=== PATIENT | male | born 1960 | race Caucasian/White ===

== ENCOUNTER 2016-07-07 15:35 | Emergency (ER) | payer MEDICAID, OTHER ==
[~2016-07-07] VITALS: Ht 180.3 cm; Wt 88.5 kg
[~2016-07-07 15:35] MED LIST: ALPR2TAB2 PO; CARI350T PO; HYDR-3326 PO
[2016-07-07] MEDS ORDERED: ASPI81TA93 PO (15:44)
[2016-07-07] MEDS ORDERED: TEMA30CA5 PO (15:44)
[2016-07-07] MEDS ORDERED: DEXAMETHASONE 0.5 MG/5 ML LIQ UDC PO ONE (17:00)
[2016-07-07] MEDS ORDERED: GUAIFENESIN/CODEINE 5 ML LIQUID UDC PO ONE (17:00)
[2016-07-07] MEDS ORDERED: ALBUTEROL SULFATE 2.5 MG/ 0.5 ML NEBU NEB ONE (17:00)
--- NOTE | 2016-07-07 17:05 | NUR ---
RT notified for HHN tx.
[2016-07-07] MEDS ORDERED: GUAIFENESIN/CODEINE 5 ML LIQUID UDC ONE (17:12)
[2016-07-07] MEDS ORDERED: DEXAMETHASONE 5 MG/5 ML LIQUID UDC ONE (17:12)
--- NOTE | 2016-07-07 17:30 | NUR ---
Pt on HHN tx, NAD noted.
[2016-07-07] MEDS ORDERED: ALBUTEROL SULFATE 2.5 MG/ 0.5 ML NEBU ONE (17:38)
--- NOTE | 2016-07-07 18:04 | NUR ---
Patient discharged to home in stable conditon. Written and verbal after care instructions given. Patient verbalizes understanding of instructions.
== END 2016-07-07 18:05 | disposition home or self-care (01) ==
LOC: ER 15:41
DX: J40 Bronchitis, not specified as acute or chronic (principal)
CPT/HCPCS: 71010; A4663; J8540

== ENCOUNTER 2016-12-23 13:16 | Emergency (ER) | payer MEDICAID, OTHER ==
[~2016-12-23] VITALS: Ht 180.3 cm; Wt 89.8 kg
[~2016-12-23 13:16] MED LIST changes: -ALPR2TAB2 PO; +ASPI81TA93 PO; -CARI350T PO; -HYDR-3326 PO; +TEMA30CA5 PO
--- NOTE | 2016-12-23 14:45 | NUR ---
Patient discharged to home in stable conditon. Written and verbal after care instructions given. Patient verbalizes understanding of instructions. Stressed follow up or return to ER for worsening s/s.
== END 2016-12-23 14:48 | disposition home or self-care (01) ==
LOC: ER 13:16
DX: M20.012 Mallet finger of left finger(s) (principal); X58.XXXA Exposure to other specified factors, initial encounter; Y93.89 Activity, other specified; Y92.9 Unspecified place or not applicable; Y99.9 Unspecified external cause status
CPT/HCPCS: 29130; 73140; 99284; A4663

== ENCOUNTER 2020-11-26 01:45 | Inpatient (IN) | payer MEDICAID, OTHER ==
[~2020-11-26] VITALS: Ht 180.3 cm; Wt 70.3 kg
--- NOTE | 2020-11-26 02:29 | NUR ---
Patient arrived at the ER with c/o fatigue, dizziness, generalized body ache with poor appetite that started 4 days ago.
--- NOTE | 2020-11-26 02:33 | NUR ---
Dr. Conteh at bedside for MSE.
[2020-11-26 03:08] LABS: HEMATOCRIT 49.4 % (36.7-47.1); MEAN CORPUSCULAR HEMOGLOBIN 33.8 uug (23.8-33.4); MEAN CORPUSCULAR VOLUME 95.8 fL (73.0-96.2); PLATELET COUNT (AUTO) 156 K/uL (152-348)
[2020-11-26 03:10] LABS: CREATININE 1.3 mg/dL (0.6-1.3); POTASSIUM 3.8 mmol/L (3.5-5.1)
[2020-11-26 03:16] LABS: BILIRUBIN,DIRECT 0.2 mg/dL (0.0-0.2); BILIRUBIN,TOTAL 0.5 mg/dL (0.2-1.0); TOTAL PROTEIN, SERUM 7.4 g/dL (6.4-8.2)
[2020-11-26 03:29] LABS: *BILIRUBIN,URIN 1+ (NEGATIVE); *BLOOD, URINE 2+ (NEGATIVE); *CLARITY,URINE CLEAR (CLEAR); *COLOR,URINE YELLOW (YELLOW); *KETONES,URINE 4+ (NEGATIVE); *UROBILINOGEN,URINE 0.2 E.U./dl (NORMAL); LEUKOCYTE ESTERASE ,URINE NEGATIVE (NEGATIVE); NITRITE, URINE NEGATIVE (NEGATIVE); PH,URINE 5.5 (5.0-8.0); UGLUCOSE TRACE (NEGATIVE)
[2020-11-26 03:48] LABS: RBC,URINE 0-3 /HPF (0-3)
[2020-11-26 03:49] LABS: BACTERIA,URINE NONE SEEN /HPF (NONE SEEN); RED BLOOD CELL CASTS,URINE 20-50 /LPF (NONE SEEN); SQUAMOUS EPITHELIAL CELL,UR FEW /HPF (NONE SEEN); WBC,URINE 0-3 /HPF (0-3)
[2020-11-26] MEDS ORDERED: DEXAMETHASONE SOD PHOSPHATE 4 MG INJ IV ONE (04:15)
[2020-11-26] MEDS ORDERED: [UNRECOGNIZED DRUG - REMARK] (04:29)
[2020-11-26] MEDS ORDERED: IV NS 1000 ML 1,000 ML IV ONE (04:30)
[2020-11-26] MEDS ORDERED: DEXAMETHASONE SOD PHOSPHATE 4 MG INJ ONE (05:21)
[2020-11-26] MEDS ORDERED: acyclovir PO (05:52)
[2020-11-26] MEDS ORDERED: METF-440 PO (05:52)
[2020-11-26] MEDS ORDERED: DARU1TAB PO (05:52)
[2020-11-26] MEDS ORDERED: EMTR1TAB6 PO (05:52)
[2020-11-26] MEDS ORDERED: OMEP20TA5 PO (05:52)
[2020-11-26] MEDS ORDERED: FINA5TAB11 PO (05:52)
[2020-11-26] MEDS ORDERED: EMTR1TAB13 PO (05:52)
[2020-11-26] MEDS ORDERED: tivicay PO (05:55)
--- NOTE | 2020-11-26 06:22 | NUR ---
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
[2020-11-26] MEDS ORDERED: hydrALAZINE HCL 20 MG/1 ML VIAL IV PRN (06:30)
[2020-11-26] MEDS ORDERED: HYDROCODONE/APAP 5-325MG TABLET PO PRN (06:30)
[2020-11-26] MEDS ORDERED: ONDANSETRON 4 MG/2 ML VIAL IV PRN (06:30)
[2020-11-26] MEDS ORDERED: LABETALOL HCL 100 MG/20 ML VIAL IV PRN (06:30)
[2020-11-26 07:12] LABS: FERRITIN 400 ng/mL (26-388); LACTATE DEHYDROGENASE 272 U/L (85-227)
--- NOTE | 2020-11-26 07:45 | NUR ---
Report given to JACINTO Luna via telephone.
--- NOTE | 2020-11-26 08:02 | NUR ---
Pt trans to tele floor, NAD noted.
--- NOTE | 2020-11-26 08:20 | NUR ---
Patient received to care from ER via wheelchair. Pt is A/O x 4. Pt is on O2 3L nasal canula. Pt denies pain or distress. Breathing is non-labored. Pt's own medications were sent to the pharmacy. Pt was placed on monitor tech. Call light within reach.
[2020-11-26] MEDS ORDERED: DARUNAVIR PO SCH (09:00)
[2020-11-26] MEDS ORDERED: EMTRICITABINE PO SCH (09:00)
[2020-11-26] MEDS ORDERED: TENOFOVIR PO SCH (09:00)
[2020-11-26] MEDS ORDERED: Medication Not On Formulary EA (Omeprazole 20 MG) PO SCH (09:00)
[2020-11-26] MEDS ORDERED: COBICISTAT PO SCH (09:00)
[2020-11-26] MEDS ORDERED: Emtricitabine/Tenofov Alafenam (Descovy 200-25 mg Tablet PO SCH (09:00)
[2020-11-26 09:03] VITALS: BP 118/72
[2020-11-26] MEDS: CHOLECALCIFEROL 1,000 UNIT TABLET PO SCH (10:21)
[2020-11-26] MEDS: ZINC SULFATE 220 MG CAPSULE PO SCH ×3 (10:21→17:33)
[2020-11-26] MEDS: FINASTERIDE 5 MG TABLET PO SCH (10:21)
[2020-11-26] MEDS: ASPIRIN 81 MG TAB.CHEW PO SCH ×2 (10:21→17:32)
[2020-11-26] MEDS: ASCORBIC ACID 500 MG TABLET PO SCH ×2 (10:21→20:09)
[2020-11-26] MEDS: ENOXAPARIN SODIUM 40 MG/0.4 ML DISP.SYRIN SQ SCH (10:25)
[2020-11-26 11:56] VITALS: BP 123/75
[2020-11-26] MEDS: FLUTICASONE/VILANTEROL 1 EACH BLST.W.DEV INH SCH (13:31)
[2020-11-26] MEDS: COBICISTAT PO SCH (13:31)
[2020-11-26] MEDS: [UNRECOGNIZED DRUG - OTHER] PO SCH (13:31)
[2020-11-26] MEDS: DARUNAVIR PO SCH (13:31)
[2020-11-26] MEDS: DOLUTEGRAVIR PO SCH (13:31)
[2020-11-26] MEDS: [UNRECOGNIZED DRUG - OTHER] PO SCH (13:31)
[2020-11-26] MEDS: TENOFOVIR ALAFENAMIDE PO SCH (13:32)
[2020-11-26] MEDS: EMTRICITABINE PO SCH (13:32)
[2020-11-26] MEDS: [UNRECOGNIZED DRUG - OTHER] PO SCH (13:32)
[2020-11-26 15:46] VITALS: BP 111/62
[2020-11-26] MEDS: CEFTRIAXONE 1 G in IV DEXTROSE 5% 50 ML IV SCH (15:58)
[2020-11-26] MEDS: AZITHROMYCIN 250 MG TABLET PO SCH (17:33)
[2020-11-26 20:15] VITALS: BP 114/68
[2020-11-26] MEDS ORDERED: TEMAZEPAM PO SCH (21:00)
[2020-11-26] MEDS: TEMAZEPAM 15 MG CAPSULE PO SCH (21:27)
--- NOTE | 2020-11-26 21:54 | NUR ---
Received pt awake on bed, on continuous O2 at 3L via NC, saturating 93-96%. No respiratory distress noted. Pt is A/O x 4, able to make needs known. All due medications given as ordered. Call light placed within reach. Will continue to monitor.
[2020-11-27 00:05] VITALS: BP 116/73
[2020-11-27] MEDS: ALBUTEROL SULFATE 8 GM HFA.AER.AD IH PRN (00:29)
[2020-11-27 04:15] VITALS: BP 122/71
[2020-11-27] MEDS: ACETAMINOPHEN 325 MG TABLET PO PRN ×2 (04:19→13:28)
--- NOTE | 2020-11-27 05:35 | NUR ---
Pt slept intermittently throughout the night, on continuous O2 at 3L via NC, saturating 93%. Ventolin inh PRN given. Pt noted with temp 100.6 at 0410H. Tylenol PRN given at 0419, temp 99.0 rechecked after an hr. Refused cooling measures for now and wants to sleep more. All needs attended. Call light placed within reach. Frequent visual checks done. Will endorse to next shift for continuity of care.
[2020-11-27 05:56] LABS: HEMATOCRIT 49.5 % (36.7-47.1); MEAN CORPUSCULAR HEMOGLOBIN 33.5 uug (23.8-33.4); MEAN CORPUSCULAR VOLUME 95.4 fL (73.0-96.2); PLATELET COUNT (AUTO) 183 K/uL (152-348)
[2020-11-27 06:09] LABS: BILIRUBIN,TOTAL 0.4 mg/dL (0.2-1.0); CREATININE 1.2 mg/dL (0.6-1.3); PHOSPHOROUS 2.7 mg/dL (2.5-4.9); POTASSIUM 3.7 mmol/L (3.5-5.1); TOTAL PROTEIN, SERUM 6.9 g/dL (6.4-8.2)
--- NOTE | 2020-11-27 07:30 | NUR ---
Received pt awake and alert times 4. Patient is on 3L oxygen saturating 93-96%. No sign of respiratory distress noted at this time. Pt is able to make needs known. Pt is in isolation for Covid 19. No elevation in temperature noted at this time. Safety precautions are in place with call light placed within reach. Will continue to monitor.
[2020-11-27] MEDS: ENOXAPARIN SODIUM 40 MG/0.4 ML DISP.SYRIN SQ SCH (08:51)
[2020-11-27] MEDS: FLUTICASONE/VILANTEROL 1 EACH BLST.W.DEV INH SCH (08:58)
[2020-11-27] MEDS: ZINC SULFATE 220 MG CAPSULE PO SCH ×3 (08:58→16:40)
[2020-11-27] MEDS: ASCORBIC ACID 500 MG TABLET PO SCH ×2 (08:58→20:23)
[2020-11-27] MEDS: CHOLECALCIFEROL 1,000 UNIT TABLET PO SCH (08:58)
[2020-11-27] MEDS: ASPIRIN 81 MG TAB.CHEW PO SCH ×2 (08:58→16:40)
[2020-11-27] MEDS: DEXAMETHASONE SOD PHOSPHATE 4 MG INJ IV SCH (08:59)
[2020-11-27] MEDS: PANTOPRAZOLE SODIUM 40 MG TABLET.DR PO SCH (08:59)
[2020-11-27] MEDS: FINASTERIDE 5 MG TABLET PO SCH (08:59)
[2020-11-27 11:52] VITALS: BP 123/70
[2020-11-27] MEDS ORDERED: REMDESIVIR (CHARGED) 200 MG in IV NORMAL SALINE 210 ML IV ONE (13:00)
[2020-11-27] MEDS: [UNRECOGNIZED DRUG - OTHER] PO SCH (13:29)
[2020-11-27] MEDS: [UNRECOGNIZED DRUG - OTHER] PO SCH (13:29)
[2020-11-27] MEDS: EMTRICITABINE PO SCH (13:29)
[2020-11-27] MEDS: [UNRECOGNIZED DRUG - OTHER] PO SCH (13:29)
[2020-11-27] MEDS: DARUNAVIR PO SCH (13:29)
[2020-11-27] MEDS: TENOFOVIR ALAFENAMIDE PO SCH (13:29)
[2020-11-27] MEDS: DOLUTEGRAVIR PO SCH (13:29)
[2020-11-27] MEDS: COBICISTAT PO SCH (13:29)
[2020-11-27] MEDS: AZITHROMYCIN 250 MG TABLET PO SCH (13:39)
[2020-11-27 15:13] VITALS: BP 117/71
[2020-11-27] MEDS: CEFTRIAXONE 1 G in IV DEXTROSE 5% 50 ML IV SCH (16:40)
--- NOTE | 2020-11-27 18:18 | NUR ---
Patient left resting in bed. No sign of distress noted. Gave all medications as ordered. Patient's oxygen increased to 4L because O2 was at 91%. Patient is tolerating well. Safety measures are in place. Will endorse to the oncoming nurse.
--- NOTE | 2020-11-27 18:29 | NUR ---
Patient left resting in bed. No sign of distress noted at this time. Gave all medications as ordered. Patient tolerated Remdizivir infusion well. Safety measures implemented. Will endorse to oncoming nurse.
[2020-11-27] MEDS: TEMAZEPAM 15 MG CAPSULE PO SCH (20:23)
[2020-11-27 20:29] VITALS: BP 138/80
--- NOTE | 2020-11-27 21:25 | NUR ---
Pt resting in bed watching TV. No acute distress noted. Axox4, Denies any pain or discomfort at the moment. No respiratory distress, SOB noted on 4L NC saturating @ 93%. Denies SOB. VSS. On tele NSR. LFA 20g IV intact and flushed. All due medication administered and tolerated well. Needs attended too. Safety and covid precautions maintained. Call light and all personal item within pt reach. Will continue to monitor throughout the night.
[2020-11-28 00:09] VITALS: BP 136/82
[2020-11-28 04:35] VITALS: BP 134/79
[2020-11-28 05:55] LABS: HEMATOCRIT 51.2 % (36.7-47.1); MEAN CORPUSCULAR HEMOGLOBIN 33.5 uug (23.8-33.4); MEAN CORPUSCULAR VOLUME 95.9 fL (73.0-96.2); PLATELET COUNT (AUTO) 202 K/uL (152-348)
[2020-11-28] MEDS: PANTOPRAZOLE SODIUM 40 MG TABLET.DR PO SCH (05:58)
[2020-11-28 06:12] LABS: BILIRUBIN,DIRECT 0.1 mg/dL (0.0-0.2); BILIRUBIN,TOTAL 0.3 mg/dL (0.2-1.0); CREATININE 1.1 mg/dL (0.6-1.3); POTASSIUM 3.9 mmol/L (3.5-5.1); TOTAL PROTEIN, SERUM 6.9 g/dL (6.4-8.2)
--- NOTE | 2020-11-28 07:56 | NUR ---
received in bed awake, alert and oriented x4. on oxygen 4lpm nc spo2 90-91%. no sob noted. stated he gets short of breath when he goes to the bathroom. encouraged to use urinal for now and stated understanding. iv intact and patent. safety measures in place. kept comfortable. call light in reach. will continue to monitor.
[2020-11-28] MEDS: FLUTICASONE/VILANTEROL 1 EACH BLST.W.DEV INH SCH (08:39)
[2020-11-28] MEDS: CHOLECALCIFEROL 1,000 UNIT TABLET PO SCH (08:42)
[2020-11-28] MEDS: ASPIRIN 81 MG TAB.CHEW PO SCH ×2 (08:43→17:11)
[2020-11-28] MEDS: ASCORBIC ACID 500 MG TABLET PO SCH ×2 (08:43→20:11)
[2020-11-28] MEDS: FINASTERIDE 5 MG TABLET PO SCH (08:43)
[2020-11-28] MEDS: ZINC SULFATE 220 MG CAPSULE PO SCH ×3 (08:43→17:11)
[2020-11-28] MEDS: DEXAMETHASONE SOD PHOSPHATE 4 MG INJ IV SCH (08:46)
[2020-11-28] MEDS: ENOXAPARIN SODIUM 40 MG/0.4 ML DISP.SYRIN SQ SCH (08:46)
[2020-11-28 11:20] VITALS: BP 121/69
--- NOTE | 2020-11-28 11:40 | NUR ---
gave update to tadeo graves
[2020-11-28] MEDS: EMTRICITABINE PO SCH (12:03)
[2020-11-28] MEDS: DOLUTEGRAVIR PO SCH (12:03)
[2020-11-28] MEDS: [UNRECOGNIZED DRUG - OTHER] PO SCH (12:03)
[2020-11-28] MEDS: [UNRECOGNIZED DRUG - OTHER] PO SCH (12:03)
[2020-11-28] MEDS: [UNRECOGNIZED DRUG - OTHER] PO SCH (12:03)
[2020-11-28] MEDS: DARUNAVIR PO SCH (12:03)
[2020-11-28] MEDS: COBICISTAT PO SCH (12:03)
[2020-11-28] MEDS: REMDESIVIR (CHARGED) 100 MG in IV NORMAL SALINE 100 ML IV SCH (12:03)
[2020-11-28] MEDS: TENOFOVIR ALAFENAMIDE PO SCH (12:03)
[2020-11-28] MEDS: AZITHROMYCIN 250 MG TABLET PO SCH (12:46)
[2020-11-28] MEDS: CEFTRIAXONE 1 G in IV DEXTROSE 5% 50 ML IV SCH (13:14)
--- NOTE | 2020-11-28 13:27 | NUR ---
first dose of remdesivir given with no adverse/allergic reaction noted. pt in no acute distress.
[2020-11-28 15:23] VITALS: BP 109/67
--- NOTE | 2020-11-28 18:57 | NUR ---
pt alert and oriented x4. no acute distress. remains on 4 lpm nc tolerated spo2 92-93%. needs attended. safety measures in place. call light in reach.
--- NOTE | 2020-11-28 19:00 | NUR ---
sr on tele heart rate 65. endorsed accordingly.
--- NOTE | 2020-11-28 19:00 | NUR ---
RECEIVED PT AWAKE, ALERT AND ORIENTEDX4. PT IN NO ACUTE DISTRESS. IV INTACT. SAFETY AND COMFORT PROVIDED. WILL CONTINUE TO MONITOR.
[2020-11-28 19:38] VITALS: BP 129/65
[2020-11-28] MEDS: TEMAZEPAM 15 MG CAPSULE PO SCH (20:11)
[2020-11-29 00:08] VITALS: BP 133/77
[2020-11-29 05:01] VITALS: BP 136/76
--- NOTE | 2020-11-29 05:52 | NUR ---
PT IN NO ACUTE DISTRESS. PRESCRIBED MEDICATION GIVEN AND PT TOLERATED IT WELL.PT ON 4L NASAL CANNULA. PT ON SINUS RHYTHM. PT IV INTACT.SAFETY AND COMFORT PROVIDED.ALL NEEDS ARE MET. WILL ENDORSE TO INCOMING NURSE FOR CONTINUITY OF CARE.
[2020-11-29] MEDS: PANTOPRAZOLE SODIUM 40 MG TABLET.DR PO SCH (06:11)
[2020-11-29 06:20] LABS: HEMATOCRIT 52.8 % (36.7-47.1); MEAN CORPUSCULAR HEMOGLOBIN 33.3 uug (23.8-33.4); MEAN CORPUSCULAR VOLUME 97.4 fL (73.0-96.2); PLATELET COUNT (AUTO) 218 K/uL (152-348)
[2020-11-29 06:37] LABS: NEUTROPHILS % (MANUAL) 0 % (42-75)
[2020-11-29 06:43] LABS: ALANINE AMINOTRANSFERASE 37 U/L (16-63); ALKALINE PHOSPHATASE 63 U/L (50-136); ASPARTATE AMINOTRANSFERASE 38 U/L (15-37); BILIRUBIN,TOTAL 0.4 mg/dL (0.2-1.0); CARBON DIOXIDE 31 mmol/L (21-32); CHLORIDE 101 mmol/L (98-107); CREATININE 1.3 mg/dL (0.6-1.3); GLUCOSE 282 mg/dL (74-106); MAGNESIUM 2.3 mg/dL (1.8-2.4); PHOSPHOROUS 3.7 mg/dL (2.5-4.9); POTASSIUM 4.5 mmol/L (3.5-5.1); TOTAL PROTEIN, SERUM 6.7 g/dL (6.4-8.2); UREA NITROGEN, BLOOD 25 mg/dL (7-18)
[2020-11-29 07:07] LABS: BILIRUBIN,DIRECT < 0.1 mg/dL (0.0-0.2)
[2020-11-29] MEDS: ENOXAPARIN SODIUM 40 MG/0.4 ML DISP.SYRIN SQ SCH (08:26)
[2020-11-29] MEDS: ASPIRIN 81 MG TAB.CHEW PO SCH ×2 (08:37→16:23)
[2020-11-29] MEDS: FINASTERIDE 5 MG TABLET PO SCH (08:38)
[2020-11-29] MEDS: ZINC SULFATE 220 MG CAPSULE PO SCH ×3 (08:38→16:23)
[2020-11-29] MEDS: CHOLECALCIFEROL 1,000 UNIT TABLET PO SCH (08:38)
[2020-11-29] MEDS: DEXAMETHASONE SOD PHOSPHATE 4 MG INJ IV SCH (08:38)
[2020-11-29] MEDS: ASCORBIC ACID 500 MG TABLET PO SCH ×2 (08:38→21:07)
[2020-11-29] MEDS: FLUTICASONE/VILANTEROL 1 EACH BLST.W.DEV INH SCH (08:45)
[2020-11-29 12:00] VITALS: BP 136/77
[2020-11-29] MEDS: AZITHROMYCIN 250 MG TABLET PO SCH (12:20)
[2020-11-29] MEDS: COBICISTAT PO SCH (12:21)
[2020-11-29] MEDS: [UNRECOGNIZED DRUG - OTHER] PO SCH (12:21)
[2020-11-29] MEDS: CEFTRIAXONE 1 G in IV DEXTROSE 5% 50 ML IV SCH (12:21)
[2020-11-29] MEDS: EMTRICITABINE PO SCH (12:21)
[2020-11-29] MEDS: TENOFOVIR ALAFENAMIDE PO SCH (12:21)
[2020-11-29] MEDS: DOLUTEGRAVIR PO SCH (12:21)
[2020-11-29] MEDS: DARUNAVIR PO SCH (12:21)
[2020-11-29] MEDS: [UNRECOGNIZED DRUG - OTHER] PO SCH (12:21)
[2020-11-29] MEDS: [UNRECOGNIZED DRUG - OTHER] PO SCH (12:21)
[2020-11-29] MEDS: REMDESIVIR (CHARGED) 100 MG in IV NORMAL SALINE 100 ML IV SCH (12:25)
[2020-11-29 16:00] VITALS: BP 123/65
--- NOTE | 2020-11-29 18:43 | NUR ---
Patient continue oxygen via nasal cannula at 4liters with saturation at 92%. Patient not in distress. Patient continue ATB treatment, tolerated well. no c/o of pain/discomfort noted. will continue monitor
--- NOTE | 2020-11-29 19:00 | NUR ---
PATIENT ALERT ORIENTED, NO SOB NO CHEST PAIN, ON 4LITERS NC FOR SOB, SAT 90 TO 91%, TELE MONITOR SINUS RHYTHM AT THIS TIME, NO COMPLAIN OF PAIN, ON DROPLET PRECAUTIONS, CONT TO MONITOR.
[2020-11-29 20:00] VITALS: BP 141/85
[2020-11-29] MEDS: TEMAZEPAM 15 MG CAPSULE PO SCH (21:07)
[2020-11-30] VITALS: BP 141/88
[2020-11-30 04:00] VITALS: BP 131/77
[2020-11-30] MEDS: ALBUTEROL SULFATE 8 GM HFA.AER.AD IH PRN (04:01)
--- NOTE | 2020-11-30 04:01 | NUR ---
PATIENT SAT 88-90% AT 6LITERS,NO COMPLAIN OF DIFFICULTY OF BREATHING, KEPT HOB ELEVATED INCREASED OXYGEN TO 8LITERS, SAT 90 TO 91%, INSTRUCTED PATIENT TO USE HIS ALBUTEROL PUFF, HE TOOK TWO PUFF, AND INSTRUCTED TO TAKE DEEP BREATHES, RT CAME IN AND CHECK THE PATIENT, RT PUT PATIENT ON OXYGEN MASK AT 8LITERS SAT 90. CONT TO MONITOR.
[2020-11-30] MEDS: PANTOPRAZOLE SODIUM 40 MG TABLET.DR PO SCH (06:05)
[2020-11-30 07:04] LABS: BILIRUBIN,DIRECT 0.1 mg/dL (0.0-0.2); BILIRUBIN,TOTAL 0.3 mg/dL (0.2-1.0); MAGNESIUM 2.4 mg/dL (1.8-2.4); PHOSPHOROUS 3.2 mg/dL (2.5-4.9); POTASSIUM 4.5 mmol/L (3.5-5.1); TOTAL PROTEIN, SERUM 6.7 g/dL (6.4-8.2)
--- NOTE | 2020-11-30 07:04 | NUR ---
PATIENT ALERT ORIENTED, NO SOB NO CHEST PAIN, DENIES PAIN, ON 8L PER MIN OXYGEN SAT 90 TO 91%, CONT TO MONITOR, AFEBRILE.
[2020-11-30 07:10] LABS: HEMATOCRIT 53.2 % (36.7-47.1); MEAN CORPUSCULAR HEMOGLOBIN 32.3 uug (23.8-33.4); MEAN CORPUSCULAR VOLUME 96.1 fL (73.0-96.2); PLATELET COUNT (AUTO) 251 K/uL (152-348)
--- NOTE | 2020-11-30 08:00 | NUR ---
PT had watery BM. PT is in no ac acute distress. Call light is within reach.
[2020-11-30] MEDS: ASPIRIN 81 MG TAB.CHEW PO SCH ×2 (08:43→16:05)
[2020-11-30] MEDS: CHOLECALCIFEROL 1,000 UNIT TABLET PO SCH (08:43)
[2020-11-30] MEDS: ZINC SULFATE 220 MG CAPSULE PO SCH ×3 (08:44→16:05)
[2020-11-30] MEDS: FINASTERIDE 5 MG TABLET PO SCH (08:44)
[2020-11-30] MEDS: ASCORBIC ACID 500 MG TABLET PO SCH ×2 (08:44→20:02)
[2020-11-30] MEDS: DEXAMETHASONE SOD PHOSPHATE 4 MG INJ IV SCH (08:44)
[2020-11-30] MEDS: FLUTICASONE/VILANTEROL 1 EACH BLST.W.DEV INH SCH (08:45)
[2020-11-30] MEDS: ENOXAPARIN SODIUM 40 MG/0.4 ML DISP.SYRIN SQ SCH (08:46)
[2020-11-30 08:48] VITALS: BP 148/85
--- NOTE | 2020-11-30 11:00 | NUR ---
Encouraged pt to use his IS and go on prone position. PT denies any c/o pain.
[2020-11-30 11:18] VITALS: BP 140/83
[2020-11-30] MEDS: REMDESIVIR (CHARGED) 100 MG in IV NORMAL SALINE 100 ML IV SCH (13:04)
[2020-11-30] MEDS: AZITHROMYCIN 250 MG TABLET PO SCH (13:04)
[2020-11-30] MEDS: FAMOTIDINE 20 MG TABLET PO SCH (13:04)
[2020-11-30] MEDS: CEFTRIAXONE 1 G in IV DEXTROSE 5% 50 ML IV SCH (14:44)
[2020-11-30 15:43] VITALS: BP 146/85
[2020-11-30] MEDS: TEMAZEPAM 15 MG CAPSULE PO SCH (20:03)
[2020-11-30 20:21] VITALS: BP 141/92
[2020-12-01 00:07] VITALS: BP 153/88
[2020-12-01 04:05] VITALS: BP 140/84
--- NOTE | 2020-12-01 05:50 | NUR ---
Patient slept well .No acute distress noted. On 8 LPM via simple mask saturating at 93%.Denies pain. Able to use urinal , voided well.BM x1 .Stool collected and sent to lab. Iv on LT FA patent and intact.Compliant with medication. Continue on isolation precaution for covid.Call light with in reach.
[2020-12-01] MEDS: PANTOPRAZOLE SODIUM 40 MG TABLET.DR PO SCH (06:01)
[2020-12-01 06:20] LABS: HEMATOCRIT 55.9 % (36.7-47.1); MEAN CORPUSCULAR HEMOGLOBIN 32.5 uug (23.8-33.4); MEAN CORPUSCULAR VOLUME 95.7 fL (73.0-96.2); PLATELET COUNT (AUTO) 299 K/uL (152-348)
[2020-12-01 06:38] LABS: ALANINE AMINOTRANSFERASE 38 U/L (16-63); ALKALINE PHOSPHATASE 71 U/L (50-136); ASPARTATE AMINOTRANSFERASE 27 U/L (15-37); BILIRUBIN,TOTAL 0.5 mg/dL (0.2-1.0); CARBON DIOXIDE 30 mmol/L (21-32); CHLORIDE 102 mmol/L (98-107); GLUCOSE 272 mg/dL (74-106); MAGNESIUM 2.3 mg/dL (1.8-2.4); POTASSIUM 4.5 mmol/L (3.5-5.1); TOTAL PROTEIN, SERUM 6.6 g/dL (6.4-8.2); UREA NITROGEN, BLOOD 31 mg/dL (7-18)
[2020-12-01 06:49] LABS: BILIRUBIN,DIRECT < 0.1 mg/dL (0.0-0.2)
[2020-12-01] MEDS: ASPIRIN 81 MG TAB.CHEW PO SCH ×2 (09:11→16:41)
[2020-12-01] MEDS: ZINC SULFATE 220 MG CAPSULE PO SCH ×3 (09:11→16:41)
[2020-12-01] MEDS: FAMOTIDINE 20 MG TABLET PO SCH (09:11)
[2020-12-01] MEDS: DEXAMETHASONE SOD PHOSPHATE 4 MG INJ IV SCH (09:12)
[2020-12-01] MEDS: CHOLECALCIFEROL 1,000 UNIT TABLET PO SCH (09:12)
[2020-12-01] MEDS: FINASTERIDE 5 MG TABLET PO SCH (09:12)
[2020-12-01] MEDS: ASCORBIC ACID 500 MG TABLET PO SCH ×2 (09:12→20:39)
[2020-12-01] MEDS: FLUTICASONE/VILANTEROL 1 EACH BLST.W.DEV INH SCH (09:13)
[2020-12-01] MEDS: ENOXAPARIN SODIUM 40 MG/0.4 ML DISP.SYRIN SQ SCH (09:15)
--- NOTE | 2020-12-01 10:20 | NUR ---
Patient noted with decreased O2 sat at 86% on 8LPM via simple mask. Patient remains alert, oriented x 4, denies any pain or discomfort. No complain of SOB. Increased O2 to 10LPM via simple mask but O2 sat still low at 88%. Akhil Ward POLITICAL SCIENTIST is in the unit made him aware and ordered to transition to NRB mask at 15LPM and titrate accordingly. RT made aware.
[2020-12-01 11:54] VITALS: BP 135/83
[2020-12-01] MEDS: IV 1/2NS 1000 ML 1,000 ML IV PRN (12:30)
[2020-12-01] MEDS: REMDESIVIR (CHARGED) 100 MG in IV NORMAL SALINE 100 ML IV SCH (12:34)
[2020-12-01] MEDS: CEFTRIAXONE 1 G in IV DEXTROSE 5% 50 ML IV SCH (14:05)
[2020-12-01 15:42] VITALS: BP 137/86
--- NOTE | 2020-12-01 20:00 | NUR ---
Received patient lying in bed. AAOx4. Denies any pain or SOB. On O2 at 15LPM via non-rebreather mask. HOB elevated. No coughing noted. NSR on tele at 67/min. IV site on left FA intact and patent. COVID isolation observed. Needs assessed and attended to. Safety measure initiated and call black within reached.
[2020-12-01 20:20] VITALS: BP 138/81
[2020-12-01] MEDS: ACETAMINOPHEN 325 MG TABLET PO PRN (20:38)
[2020-12-01] MEDS: TEMAZEPAM 15 MG CAPSULE PO SCH (20:38)
[2020-12-02 00:10] VITALS: BP 146/89
[2020-12-02 04:25] VITALS: BP 132/87
[2020-12-02 05:07] LABS: *BASOS 0 % (Not Estab.); *EOS 0 % (Not Estab.); *HCT 56.9 % (37.5-51.0); *HGB 19.5 g/dL (13.0-17.7); *IMMATURE GRANULOCYTES 0.3 x10E3/uL (0.0-0.1); *IMMATURE GRANULOCYTES 2 % (Not Estab.); *LYMPHOCYTES 8 % (Not Estab.); *LYMPHOCYTES ABSOLUTE 1.2 x10E3/uL (0.7-3.1); *MCH 32.6 pg (26.6-33.0); *MCHC 34.3 g/dL (31.5-35.7); *MCV 95 fL (79-97); *MONOCYTES 7 % (Not Estab.); *NEUTROPHILS 83 % (Not Estab.); *NEUTROPHILS ABSOLUTE 12.5 x10E3/uL (1.4-7.0); *PLT 296 x10E3/uL (150-450); *RBC 5.98 x10E6/uL (4.14-5.80)
[2020-12-02] MEDS: PANTOPRAZOLE SODIUM 40 MG TABLET.DR PO SCH (06:07)
[2020-12-02] MEDS: IV 1/2NS 1000 ML 1,000 ML IV PRN ×2 (06:08→18:06)
[2020-12-02 06:36] LABS: HEMATOCRIT 54.7 % (36.7-47.1); MEAN CORPUSCULAR HEMOGLOBIN 32.8 uug (23.8-33.4); MEAN CORPUSCULAR VOLUME 96.7 fL (73.0-96.2); PLATELET COUNT (AUTO) 313 K/uL (152-348)
--- NOTE | 2020-12-02 06:42 | NUR ---
AAOx4. Denies any pain or SOB. On O2 at 15LPM via non-rebreather mask. O2 sat at 98%. HOB kept elevated. Denies any coughing. NSR on tele at 81/min. IV site on left FA intact and patent. COVID isolation maintained. Needs attended to and met. Safety measure maintained and call black within reached.
[2020-12-02 06:53] LABS: CREATININE 1.1 mg/dL (0.6-1.3); MAGNESIUM 2.5 mg/dL (1.8-2.4); POTASSIUM 4.9 mmol/L (3.5-5.1)
[2020-12-02] MEDS: DEXAMETHASONE SOD PHOSPHATE 4 MG INJ IV SCH (08:32)
[2020-12-02] MEDS: ASCORBIC ACID 500 MG TABLET PO SCH ×2 (08:32→20:27)
[2020-12-02] MEDS: ASPIRIN 81 MG TAB.CHEW PO SCH ×2 (08:33→16:23)
[2020-12-02] MEDS: FAMOTIDINE 20 MG TABLET PO SCH (08:33)
[2020-12-02] MEDS: ZINC SULFATE 220 MG CAPSULE PO SCH ×3 (08:33→16:23)
[2020-12-02] MEDS: FINASTERIDE 5 MG TABLET PO SCH (08:33)
[2020-12-02] MEDS: CHOLECALCIFEROL 1,000 UNIT TABLET PO SCH (08:33)
[2020-12-02] MEDS: ENOXAPARIN SODIUM 40 MG/0.4 ML DISP.SYRIN SQ SCH (08:34)
[2020-12-02] MEDS: FLUTICASONE/VILANTEROL 1 EACH BLST.W.DEV INH SCH (08:35)
[2020-12-02 10:06] LABS: *HELPER T-LYMPH MARKR(CD4)ABSO 416 /uL (359-1519); *HELPER T-LYNPH MARKER CD4)% 34.7 % (30.8-58.5)
[2020-12-02] MEDS ORDERED: TOCILIZUMAB 600 MG in IV NORMAL SALINE 70 ML IV ONE (10:45)
[2020-12-02] MEDS ORDERED: AZITHROMYCIN 250 MG TABLET PO ONE (10:45)
[2020-12-02 11:28] VITALS: BP 133/80
[2020-12-02] MEDS: FLUCONAZOLE 100 MG TABLET PO SCH (11:39)
[2020-12-02] MEDS: CEFTRIAXONE 1 G in IV DEXTROSE 5% 50 ML IV SCH (13:11)
[2020-12-02] MEDS ORDERED: AZITHROMYCIN 250 MG TABLET PO SCH (14:00)
[2020-12-02] MEDS ORDERED: SULFAMETHOXAZOL/TRIMETHOPRI IV 15 ML in IV DEXTROSE 5% 250 ML IV SCH (14:00)
[2020-12-02 15:43] VITALS: BP 124/81
[2020-12-02] MEDS: SULFAMETHOXAZOL/TRIMETHOPRI IV 20 ML in IV DEXTROSE 5% 500 ML IV SCH ×2 (17:59→23:24)
--- NOTE | 2020-12-02 18:33 | NUR ---
Patient resting in bed. AOx4. On 15Lpm O2 via Nonrebreather mask, saturating at 95%. No signs of acute distress. Patient denies pain/ discomfort at this time. NSR on disc sander, rate at 87. IV access patent and intact. Compliant with medications and care. Needs anticipated and met. Call light within reach. Bed alarm on for safety. Will endorse to incoming shift for continuity of care.
[2020-12-02] MEDS: TEMAZEPAM 15 MG CAPSULE PO SCH (20:27)
[2020-12-02 20:30] VITALS: BP 133/85
[2020-12-03 00:15] VITALS: BP 130/81
[2020-12-03 04:35] VITALS: BP 108/55
--- NOTE | 2020-12-03 05:03 | NUR ---
Pt slept throughout the night. Denies pain or SOB and states that he is feeling a lot better. IV site is intact. On 15L NR satting 91-93%. Safety and comfort provided. No other issues or concerns at this time, will endorse to day shift.
[2020-12-03] MEDS: SULFAMETHOXAZOL/TRIMETHOPRI IV 20 ML in IV DEXTROSE 5% 500 ML IV SCH ×4 (05:47→23:35)
[2020-12-03 06:43] LABS: HEMATOCRIT 53.9 % (36.7-47.1); MEAN CORPUSCULAR VOLUME 96.2 fL (73.0-96.2); PLATELET COUNT (AUTO) 319 K/uL (152-348)
[2020-12-03] MEDS: PANTOPRAZOLE SODIUM 40 MG TABLET.DR PO SCH (06:53)
[2020-12-03 06:54] LABS: CREATININE 0.9 mg/dL (0.6-1.3); MAGNESIUM 2.1 mg/dL (1.8-2.4); POTASSIUM 4.2 mmol/L (3.5-5.1)
[2020-12-03 08:30] VITALS: BP 131/75
[2020-12-03] MEDS: ASPIRIN 81 MG TAB.CHEW PO SCH (09:02)
[2020-12-03] MEDS: ZINC SULFATE 220 MG CAPSULE PO SCH ×3 (09:02→16:55)
[2020-12-03] MEDS: FLUCONAZOLE 100 MG TABLET PO SCH (09:02)
[2020-12-03] MEDS: DEXAMETHASONE SOD PHOSPHATE 4 MG INJ IV SCH (09:02)
[2020-12-03] MEDS: FAMOTIDINE 20 MG TABLET PO SCH (09:02)
[2020-12-03] MEDS: ASCORBIC ACID 500 MG TABLET PO SCH ×2 (09:02→20:36)
[2020-12-03] MEDS: ENOXAPARIN SODIUM 40 MG/0.4 ML DISP.SYRIN SQ SCH (09:03)
[2020-12-03] MEDS: FINASTERIDE 5 MG TABLET PO SCH (09:04)
[2020-12-03] MEDS: CHOLECALCIFEROL 1,000 UNIT TABLET PO SCH (09:05)
[2020-12-03] MEDS: FLUTICASONE/VILANTEROL 1 EACH BLST.W.DEV INH SCH (09:06)
[2020-12-03 11:05] VITALS: BP 119/79
[2020-12-03] MEDS ORDERED: DEXTROSE 50% 50 ML DISP.SYRIN IV PRN (11:15)
--- NOTE | 2020-12-03 12:01 | NUR ---
1,250mg of Azithromycin due yesterday 12/02 was given today.
[2020-12-03] MEDS: BLOOD SUGAR DIAGNOSTIC 1 EACH STRIP VI SCH ×3 (12:11→20:55)
[2020-12-03] MEDS: INSULIN REGULAR, HUMAN 300 UNIT/3 ML VIAL SQ PRN ×3 (12:25→20:58)
[2020-12-03] MEDS: CEFTRIAXONE 1 G in IV DEXTROSE 5% 50 ML IV SCH (15:15)
[2020-12-03 15:21] VITALS: BP 103/68
--- NOTE | 2020-12-03 17:13 | NUR ---
Pt's blood sugar is 419. Per Ed WEB DESIGNER DEVELOPER, will give 16 units
[2020-12-03] MEDS ORDERED: INSULIN REGULAR, HUMAN 300 UNIT/3 ML VIAL SQ ONE (17:30)
--- NOTE | 2020-12-03 18:37 | NUR ---
Pt stable throughout the shift. Denies any acute distress. Kept on 15L NRB. Vitals WNL. Improved PO intake. Blood sugar monitored and insulin coverage protocol implemented. Safety and isolation precaution maintained. Will endorse to oncoming nurse.
[2020-12-03 20:12] VITALS: BP 121/70
[2020-12-03] MEDS: TEMAZEPAM 15 MG CAPSULE PO SCH ×2 (20:36→21:36)
[2020-12-04 00:09] VITALS: BP 124/79
--- NOTE | 2020-12-04 00:26 | NUR ---
AAOX4 All needs attended. On 15 L NRB pulse ox 94% Denies any chest pains nor any discomfort. No respiratory distress noted. VSS. On IV Bactrim administered as ordered via left forearm heplock. On telemetry, patient on sinus rhythm. No ectopy noted. Will monitor patient. Needs attended.
[2020-12-04 04:15] VITALS: BP 128/79
[2020-12-04] MEDS: SULFAMETHOXAZOL/TRIMETHOPRI IV 20 ML in IV DEXTROSE 5% 500 ML IV SCH ×3 (05:14→18:01)
[2020-12-04 06:07] LABS: HEMATOCRIT 53.9 % (36.7-47.1); MEAN CORPUSCULAR HEMOGLOBIN 32.7 uug (23.8-33.4); MEAN CORPUSCULAR VOLUME 96.6 fL (73.0-96.2); PLATELET COUNT (AUTO) 348 K/uL (152-348)
[2020-12-04 06:13] LABS: CREATININE 0.9 mg/dL (0.6-1.3); MAGNESIUM 2.2 mg/dL (1.8-2.4); POTASSIUM 4.5 mmol/L (3.5-5.1)
[2020-12-04] MEDS: PANTOPRAZOLE SODIUM 40 MG TABLET.DR PO SCH (06:14)
[2020-12-04] MEDS: BLOOD SUGAR DIAGNOSTIC 1 EACH STRIP VI SCH ×4 (06:56→20:09)
[2020-12-04] MEDS: INSULIN REGULAR, HUMAN 300 UNIT/3 ML VIAL SQ PRN ×3 (07:40→18:05)
[2020-12-04] MEDS: ENOXAPARIN SODIUM 40 MG/0.4 ML DISP.SYRIN SQ SCH (08:01)
[2020-12-04] MEDS: DEXAMETHASONE SOD PHOSPHATE 4 MG INJ IV SCH (08:01)
[2020-12-04] MEDS: FAMOTIDINE 20 MG TABLET PO SCH (08:01)
[2020-12-04] MEDS: ASCORBIC ACID 500 MG TABLET PO SCH ×2 (08:02→20:02)
[2020-12-04] MEDS: FINASTERIDE 5 MG TABLET PO SCH (08:02)
[2020-12-04] MEDS: ZINC SULFATE 220 MG CAPSULE PO SCH ×3 (08:02→17:10)
[2020-12-04] MEDS: FLUCONAZOLE 100 MG TABLET PO SCH (08:02)
[2020-12-04] MEDS: ASPIRIN 81 MG TAB.CHEW PO SCH (08:02)
[2020-12-04] MEDS: FLUTICASONE/VILANTEROL 1 EACH BLST.W.DEV INH SCH (08:03)
[2020-12-04] MEDS: CHOLECALCIFEROL 1,000 UNIT TABLET PO SCH (08:03)
--- NOTE | 2020-12-04 08:30 | NUR ---
RECEIVED PATIENT IN BED AWAKE ALERT AND ORIENTED DUE MEDICATIONS GIVEN INCLUDING INSULIN PER SLIDING SCALE DENIES PAIN OR DISCOMFORTS AT THIS TIME REMAIN ON 15 LITERS OF NON REBREATHER MASK ORDERED WITH SATS AT 94 PERCENT NO SOB AT THIS TIME REMAIN ON RTESPIRATORY ISOLATION AND PRECAUTION CALL LIGHTS AND HIS PERSONAL BELONGINGS ARE WITHIN EASY REACH AT THIS TIME WILL CONTINUE TO OBSERVE.
[2020-12-04 12:00] VITALS: BP 113/73
[2020-12-04] MEDS: CEFTRIAXONE 1 G in IV DEXTROSE 5% 50 ML IV SCH (13:04)
[2020-12-04 16:10] VITALS: BP 116/72
--- NOTE | 2020-12-04 18:00 | NUR ---
RESTING IN BED SITTING AT THE EDGE STATED THAT HE FEELS BETTER SITTING UP WAS ABLE TO GO TO THE [facility] FOR A FEW MINUTED BECAUSE HE REFUSED THE BEDPAN AND BEDSIDE COMMODE BUT WAS BACK INTO BED QUICKLY AND O2 SAT WAS OKAY AT 93-94 PERCENT.TOLERATED IV ANTIBIOTICS ORDERED WITH NO ADVERSE OR ALLERGIC REACTIONS AT THIS TIME.REMAIN ON ISOLATION ORDERED WILL CONTINUE TO OBSERVE.
[2020-12-04] MEDS: TEMAZEPAM 15 MG CAPSULE PO SCH (20:03)
[2020-12-04] MEDS ORDERED: DEXTROSE 50% 50 ML DISP.SYRIN IV PRN (20:30)
[2020-12-04] MEDS ORDERED: INSULIN REGULAR, HUMAN 300 UNIT/3 ML VIAL SQ ONE (20:30)
[2020-12-04 20:51] VITALS: BP 124/69
[2020-12-04] MEDS: INSULIN REGULAR, HUMAN 300 UNITS/3 ML VIAL SQ PRN (20:59)
[2020-12-04] MEDS ORDERED: BLOOD SUGAR DIAGNOSTIC 1 EACH STRIP VI SCH (21:00)
[2020-12-05 00:35] VITALS: BP 116/74
[2020-12-05] MEDS: SULFAMETHOXAZOL/TRIMETHOPRI IV 20 ML in IV DEXTROSE 5% 500 ML IV SCH ×6 (01:23→23:45)
[2020-12-05 04:54] VITALS: BP 121/70
--- NOTE | 2020-12-05 05:20 | NUR ---
Pt slept throughout the night. denies pain or SOB. On 15L/min NC, tolerating well. SOB only on exertion. IV site intact. Safety and comfort provided. No other issues or concerns at this time, will endorse to day shift.
[2020-12-05] MEDS: PANTOPRAZOLE SODIUM 40 MG TABLET.DR PO SCH (06:17)
[2020-12-05 06:24] LABS: HEMATOCRIT 53.4 % (36.7-47.1); MEAN CORPUSCULAR HEMOGLOBIN 32.9 uug (23.8-33.4); MEAN CORPUSCULAR VOLUME 96.1 fL (73.0-96.2); PLATELET COUNT (AUTO) 361 K/uL (152-348)
[2020-12-05 06:46] LABS: POTASSIUM 4.7 mmol/L (3.5-5.1)
--- NOTE | 2020-12-05 06:52 | NUR ---
Attempted to titrate from 15L to 12L NRM but patient was unable to tolerate and desatted to 87%. Placed back on 15L NRM and is satting at 94%.
[2020-12-05] MEDS: BLOOD SUGAR DIAGNOSTIC 1 EACH STRIP VI SCH ×4 (06:56→20:28)
[2020-12-05] MEDS: INSULIN REGULAR, HUMAN 300 UNIT/3 ML VIAL SQ PRN ×3 (07:57→16:24)
[2020-12-05] MEDS: ENOXAPARIN SODIUM 40 MG/0.4 ML DISP.SYRIN SQ SCH (07:59)
[2020-12-05] MEDS: FLUCONAZOLE 100 MG TABLET PO SCH (07:59)
[2020-12-05 08:00] VITALS: BP 121/65
[2020-12-05] MEDS: DEXAMETHASONE SOD PHOSPHATE 4 MG INJ IV SCH (08:00)
[2020-12-05] MEDS: ASPIRIN 81 MG TAB.CHEW PO SCH (08:00)
--- NOTE | 2020-12-05 08:00 | NUR ---
RESTING COMFORTABLY IN BED WITH 15L NRM SATURATING 95-97 %. DENIES CHEST P[AINOR ACUTE SOB. NOTED ON AND OFF MOIST COUGH NO PRODUCTIVE
[2020-12-05] MEDS: ASCORBIC ACID 500 MG TABLET PO SCH ×2 (08:01→20:14)
[2020-12-05] MEDS: FAMOTIDINE 20 MG TABLET PO SCH (08:01)
[2020-12-05] MEDS: ZINC SULFATE 220 MG CAPSULE PO SCH ×3 (08:01→16:39)
[2020-12-05] MEDS: CHOLECALCIFEROL 1,000 UNIT TABLET PO SCH (08:01)
[2020-12-05] MEDS: FINASTERIDE 5 MG TABLET PO SCH (08:01)
[2020-12-05] MEDS: FLUTICASONE/VILANTEROL 1 EACH BLST.W.DEV INH SCH (08:02)
[2020-12-05] MEDS: ACETAMINOPHEN 325 MG TABLET PO PRN (08:02)
--- NOTE | 2020-12-05 09:54 | NUR ---
SEEN BY CUPOLA PATCHER HELPER FOR FOLLOW-UP SEE NOTES
[2020-12-05 11:43] VITALS: BP 118/67
[2020-12-05] MEDS: CEFTRIAXONE 1 G in IV DEXTROSE 5% 50 ML IV SCH (13:01)
[2020-12-05 14:22] LABS: LYMPHOCYTES % (MANUAL) 5 % (20-40); MONOCYTES % (MANUAL) 5 % (2-10); NEUTROPHILS % (MANUAL) 90 % (42-75)
[2020-12-05 15:51] VITALS: BP 120/67
[2020-12-05] MEDS: FUROSEMIDE 20 MG/2 ML VIAL IV SCH (18:57)
--- NOTE | 2020-12-05 19:47 | NUR ---
Recommended ABG to Akhil Ward BENDER MACHINE due to patient satting around 91% on 15L NRM. Ed stated that patient does not need to have ABG at this time unless he is desatting into the 80s at rest and in that case he would then recommend to place patient on high flow NC and then do an ABG. He also informed this nurse that if patient feels short of breath on 15L NRM that he may then choose to transition to high flow. Patient denies having SOB at this time and states that he "feels okay."
[2020-12-05 20:09] VITALS: BP 127/66
[2020-12-05] MEDS: TEMAZEPAM 15 MG CAPSULE PO SCH (20:15)
[2020-12-05] MEDS: INSULIN REGULAR, HUMAN 300 UNITS/3 ML VIAL SQ PRN (20:40)
[2020-12-05] MEDS ORDERED: INSULIN REGULAR, HUMAN 300 UNITS/3 ML VIAL SQ PRN (21:00)
[2020-12-05] MEDS ORDERED: BLOOD SUGAR DIAGNOSTIC 1 EACH STRIP VI SCH (21:00)
--- NOTE | 2020-12-05 23:26 | NUR ---
Patient satting 85% at rest. Placed on high flow 40L/min, 100% fio2. Akhil Ward ADZ WORKER notified. Patient tolerating well satting 95-96%. Will check ABG within an hour.
[2020-12-06 00:03] VITALS: BP 105/65
[2020-12-06 00:52] LABS: ABG BASE EXCESS -2.4 mmol/L; ABG PCO2 29.6 mmHg (35.0-45.0); ABG PH 7.447 (7.350-7.450); ABG PO2 57.7 mmHg (75.0-100.0); ABG SITE RIGHT RADIAL; ABG TOTAL HEMOGLOBIN 18.8 G/dL (13.5-18.0); COHb 0.3 % (0.5-1.5); MetHb 0.4 % (0.0-1.5); O2Hb 90.2 % (94.0-97.0); VENT MODE HIGH FLOW N/C
[2020-12-06 04:09] VITALS: BP 103/61
[2020-12-06 05:23] LABS: ABG BASE EXCESS 2.9 mmol/L; ABG HCO3 25.2 mmol/L; ABG SITE RIGHT RADIAL; ABG TOTAL HEMOGLOBIN 19.8 G/dL (13.5-18.0); COHb 0.3 % (0.5-1.5); MetHb 0.8 % (0.0-1.5); VENT MODE HFNC
--- NOTE | 2020-12-06 05:34 | NUR ---
ABG results at 0030 and 0530 reported to Surekha Blas with no new orders at this time. Pt is satting 96% on 40L HFNC, tolerating well. Patient denies being dizzy, denies SOB or chest pain. IV site is intact. No other issues or concerns at this time, will endorse to day shift.
[2020-12-06 06:26] LABS: HEMATOCRIT 50.7 % (36.7-47.1); MEAN CORPUSCULAR HEMOGLOBIN 32.8 uug (23.8-33.4); MEAN CORPUSCULAR VOLUME 95.4 fL (73.0-96.2); PLATELET COUNT (AUTO) 389 K/uL (152-348)
[2020-12-06] MEDS: ACETAMINOPHEN 325 MG TABLET PO PRN (06:35)
[2020-12-06] MEDS: PANTOPRAZOLE SODIUM 40 MG TABLET.DR PO SCH (06:35)
[2020-12-06] MEDS: SULFAMETHOXAZOL/TRIMETHOPRI IV 20 ML in IV DEXTROSE 5% 500 ML IV SCH ×3 (06:35→17:47)
[2020-12-06 06:37] LABS: CREATININE 1.2 mg/dL (0.6-1.3); POTASSIUM 4.4 mmol/L (3.5-5.1)
[2020-12-06] MEDS: BLOOD SUGAR DIAGNOSTIC 1 EACH STRIP VI SCH ×4 (06:40→21:21)
[2020-12-06] MEDS: FINASTERIDE 5 MG TABLET PO SCH (09:00)
[2020-12-06] MEDS: FLUCONAZOLE 100 MG TABLET PO SCH (09:00)
[2020-12-06] MEDS: CHOLECALCIFEROL 1,000 UNIT TABLET PO SCH (09:00)
[2020-12-06] MEDS: FAMOTIDINE 20 MG TABLET PO SCH (09:00)
[2020-12-06] MEDS: ASPIRIN 81 MG TAB.CHEW PO SCH (09:00)
[2020-12-06] MEDS: ZINC SULFATE 220 MG CAPSULE PO SCH ×3 (09:00→16:47)
--- NOTE | 2020-12-06 09:00 | NUR ---
Received pt from rack cleaner RN. Pt is a/o x 4, sinus rhythm. Pt is on 4L high flow, 100% FiO2. Pt is ambulatory but requested a bedside commode because oxygen tubing makes it difficult for him to ambulate to restroom, pt also uses a urinal at bedside. Pt has accucheck AC HS, is on antibiotics(bactrim, rocephin, and zythromax). Pt is coopertive with care and compliant with tx. will continue to monitor.
[2020-12-06] MEDS: ASCORBIC ACID 500 MG TABLET PO SCH ×2 (09:01→20:59)
[2020-12-06] MEDS: DEXAMETHASONE 4 MG TABLET PO SCH (09:01)
[2020-12-06] MEDS: FUROSEMIDE 20 MG/2 ML VIAL IV SCH (09:02)
[2020-12-06] MEDS: FLUTICASONE/VILANTEROL 1 EACH BLST.W.DEV INH SCH (09:16)
[2020-12-06] MEDS: ENOXAPARIN SODIUM 40 MG/0.4 ML DISP.SYRIN SQ SCH (09:20)
[2020-12-06] MEDS: INSULIN REGULAR, HUMAN 300 UNIT/3 ML VIAL SQ PRN ×3 (09:37→17:09)
--- NOTE | 2020-12-06 11:59 | NUR ---
02 sat 86% in R/A @ rest.
[2020-12-06 12:00] VITALS: BP 114/67
[2020-12-06 16:00] VITALS: BP 151/81
[2020-12-06 16:14] LABS: BAND % (MANUAL) 1 % (0-10); LYMPHOCYTES % (MANUAL) 5 % (20-40); MONOCYTES % (MANUAL) 2 % (2-10); NEUTROPHILS % (MANUAL) 92 % (42-75)
--- NOTE | 2020-12-06 19:00 | NUR ---
PATIENT IN BED ALERT ORIENTED, NO CHEST PAIN, ON 40 LITERS HIGH FLOW, AND 15 LITER NC OXYGEN SAT 95, DENIES OF BEING SHORT OF BREATH, NO COMPLAIN OF PAIN, AFEBRILE CONT TO MONITOR, TELE MONITOR SINUS RHYTHM.
[2020-12-06 20:12] VITALS: BP 127/74
[2020-12-06] MEDS: TEMAZEPAM 15 MG CAPSULE PO SCH (20:59)
[2020-12-06] MEDS: INSULIN REGULAR, HUMAN 300 UNITS/3 ML VIAL SQ PRN (21:27)
--- NOTE | 2020-12-06 21:30 | NUR ---
PATIENT ALERT ORIENTED, NO SOB NO CHEST PAIN, ON 40 LITER HIGH FLOW AT THIS TIME, WITHOUT 15 LITERS NON REBREATHER, SAT 91-92%, PATIENT STATED HIS SAT 92% AT 40 LITERS NO SOB, STATED HE WANTED TO TRY IT, AND WILL PUT THE 15 LITERS NON BREATHER MASK WHEN HE GOES TO SLEEP. CON TO MONITOR.
[2020-12-07] VITALS: BP 131/80
[2020-12-07] MEDS: SULFAMETHOXAZOL/TRIMETHOPRI IV 20 ML in IV DEXTROSE 5% 500 ML IV SCH ×3 (00:13→12:03)
[2020-12-07 04:00] VITALS: BP 126/70
[2020-12-07] MEDS: BLOOD SUGAR DIAGNOSTIC 1 EACH STRIP VI SCH ×4 (05:41→21:25)
--- NOTE | 2020-12-07 05:46 | NUR ---
PATIENT ALERT ORIENTED, NO CHEST PAIN, STILL ON 40 LITER HIGH FLOW, AND 15 LITER NON REBREATHER, SAT 98%, DENIES PAIN AT THIS TIME, REMAINS ON DROPLET PRECAUTION, PATIENT PORTABLE SMALL OXYGEN TANK, AND ELECTRIC O2 MACHINE OUTSIDE PATIENT ROOM, AND TOLD THE PATIENT THAT HIS OXYGEN WAS DELIVERED, AND THEY ARE OUTSIDE HIS ROOM. PATIENT TELE MONITOR SINUS RHYTHM CONT TO MONITOR.
[2020-12-07 06:47] LABS: HEMATOCRIT 49.1 % (36.7-47.1); MEAN CORPUSCULAR VOLUME 95.4 fL (73.0-96.2); PLATELET COUNT (AUTO) 401 K/uL (152-348)
[2020-12-07 07:11] LABS: MAGNESIUM 2.2 mg/dL (1.8-2.4); POTASSIUM 4.6 mmol/L (3.5-5.1)
[2020-12-07] MEDS: ASPIRIN 81 MG TAB.CHEW PO SCH (08:09)
[2020-12-07] MEDS: ASCORBIC ACID 500 MG TABLET PO SCH ×2 (08:09→20:58)
[2020-12-07] MEDS: FAMOTIDINE 20 MG TABLET PO SCH (08:09)
[2020-12-07] MEDS: CHOLECALCIFEROL 1,000 UNIT TABLET PO SCH (08:09)
[2020-12-07] MEDS: ZINC SULFATE 220 MG CAPSULE PO SCH ×3 (08:09→17:10)
[2020-12-07] MEDS: DEXAMETHASONE 4 MG TABLET PO SCH (08:09)
[2020-12-07] MEDS: FLUCONAZOLE 100 MG TABLET PO SCH (08:10)
[2020-12-07] MEDS: FINASTERIDE 5 MG TABLET PO SCH (08:10)
[2020-12-07] MEDS: FUROSEMIDE 20 MG/2 ML VIAL IV SCH (08:10)
[2020-12-07] MEDS: ENOXAPARIN SODIUM 40 MG/0.4 ML DISP.SYRIN SQ SCH (08:12)
[2020-12-07] MEDS: INSULIN REGULAR, HUMAN 300 UNIT/3 ML VIAL SQ PRN ×3 (08:13→17:48)
[2020-12-07] MEDS: FLUTICASONE/VILANTEROL 1 EACH BLST.W.DEV INH SCH (08:14)
[2020-12-07 11:57] VITALS: BP 123/70
[2020-12-07] MEDS ORDERED: TOCILIZUMAB 400 MG in IV NORMAL SALINE 80 ML IV ONE (13:45)
[2020-12-07 16:00] VITALS: BP 141/69
[2020-12-07] MEDS ORDERED: DEXTROSE 50% 50 ML DISP.SYRIN IV PRN (16:45)
--- NOTE | 2020-12-07 19:30 | NUR ---
Received patient lying in bed. AAOx4. In no acute distress. Denies any pain or SOB. On High flow O2 100% at 40L with 15L of O2 via non-rebreather mask. O2 sat at 96% at this time. HOB elevated. NSR on tele at 90/min. IV site on left FA intact and patent. Needs assessed and attended to. COVID precaution observed. Safety measure initiated and call black within reached.
[2020-12-07 20:20] VITALS: BP 113/74
[2020-12-07] MEDS: TEMAZEPAM 15 MG CAPSULE PO SCH (20:58)
[2020-12-07] MEDS: INSULIN REGULAR, HUMAN 300 UNITS/3 ML VIAL SQ PRN (21:26)
[2020-12-08 00:20] VITALS: BP 127/80
[2020-12-08 04:25] VITALS: BP 109/62
[2020-12-08 06:11] LABS: HEMATOCRIT 51.2 % (36.7-47.1); MEAN CORPUSCULAR VOLUME 94.6 fL (73.0-96.2); PLATELET COUNT (AUTO) 432 K/uL (152-348)
--- NOTE | 2020-12-08 06:20 | NUR ---
AAOx4. In no acute distress. No complain of pain or SOB. On High flow O2 100% at 40L with 15L of O2 via non-rebreather mask. O2 sat at 92% at this time. NSR on tele at 80/min. IV site on left FA intact and patent. Needs attended to and met. COVID precaution maintained. Safety measure maintained and call black within reached.
[2020-12-08 06:31] LABS: CREATININE 0.9 mg/dL (0.6-1.3); MAGNESIUM 2.2 mg/dL (1.8-2.4); PHOSPHOROUS 3.9 mg/dL (2.5-4.9); POTASSIUM 4.4 mmol/L (3.5-5.1)
[2020-12-08] MEDS: BLOOD SUGAR DIAGNOSTIC 1 EACH STRIP VI SCH ×4 (06:35→21:05)
--- NOTE | 2020-12-08 08:00 | NUR ---
awake alert and oriented, on high flow 40L and NRB 15L- sat at 94%- on continuous pulse oximetry, still with cough, denies of pain, tele SR 89, breakfast served and wisth good appetite, needs attended, COVID isolatiion observed, safety measures maintained, call light within reach
[2020-12-08] MEDS: INSULIN REGULAR, HUMAN 300 UNIT/3 ML VIAL SQ PRN ×3 (08:21→16:50)
[2020-12-08] MEDS: ENOXAPARIN SODIUM 40 MG/0.4 ML DISP.SYRIN SQ SCH (08:21)
[2020-12-08] MEDS: FUROSEMIDE 20 MG/2 ML VIAL IV SCH (08:23)
[2020-12-08] MEDS: FINASTERIDE 5 MG TABLET PO SCH (08:24)
[2020-12-08] MEDS: ASPIRIN 81 MG TAB.CHEW PO SCH (08:24)
[2020-12-08] MEDS: CHOLECALCIFEROL 1,000 UNIT TABLET PO SCH (08:24)
[2020-12-08] MEDS: ZINC SULFATE 220 MG CAPSULE PO SCH ×3 (08:24→17:03)
[2020-12-08] MEDS: ASCORBIC ACID 500 MG TABLET PO SCH ×2 (08:25→20:39)
[2020-12-08] MEDS: DEXAMETHASONE 4 MG TABLET PO SCH (08:25)
[2020-12-08] MEDS: FAMOTIDINE 20 MG TABLET PO SCH (08:25)
[2020-12-08] MEDS: FLUCONAZOLE 100 MG TABLET PO SCH (08:25)
[2020-12-08] MEDS: FLUTICASONE/VILANTEROL 1 EACH BLST.W.DEV INH SCH (08:26)
--- NOTE | 2020-12-08 11:00 | NUR ---
seen by Dr Xiong- updated - see notes
[2020-12-08 12:00] VITALS: BP 114/74
--- NOTE | 2020-12-08 12:36 | NUR ---
BS 434- covered with 20 units regular insulin sq as per sliding scale- informed Tish De La Torre AIRPORT MAINTENANCE LABORER with order
[2020-12-08 16:00] VITALS: BP 119/72
--- NOTE | 2020-12-08 17:58 | NUR ---
resting, no respiratory distress noted, on 20L high flow and NRB 15L-sat at 94 %, all needs attended and met, very pleasant and cooperative call light within reach.
[2020-12-08 20:20] VITALS: BP 129/58
[2020-12-08] MEDS: TEMAZEPAM 15 MG CAPSULE PO SCH (20:39)
[2020-12-08] MEDS: INSULIN REGULAR, HUMAN 300 UNITS/3 ML VIAL SQ PRN (20:59)
[2020-12-08] MEDS ORDERED: INSULIN GLARGINE,HUM 300 UNITS/3 ML CARTRIDGE SQ SCH (21:00)
--- NOTE | 2020-12-08 22:33 | NUR ---
Received pt on awake on bed, resting, on 20L high flow and NRB 15L - saturating at 95 %. Denies pain and discomfort at this time. All due meds given and tolerated well. BS checked, 370 with sliding scale and routine Lantus given. All needs attended. Call light placed within reach. Will continue to monitor.
[2020-12-09 00:20] VITALS: BP 115/73
[2020-12-09 04:20] VITALS: BP 104/62
[2020-12-09 06:27] LABS: HEMATOCRIT 50.8 % (36.7-47.1); MEAN CORPUSCULAR HEMOGLOBIN 33.2 uug (23.8-33.4); MEAN CORPUSCULAR VOLUME 95.5 fL (73.0-96.2); PLATELET COUNT (AUTO) 388 K/uL (152-348)
[2020-12-09] MEDS: BLOOD SUGAR DIAGNOSTIC 1 EACH STRIP VI SCH ×4 (06:46→21:01)
[2020-12-09 06:56] LABS: CREATININE 0.9 mg/dL (0.6-1.3); MAGNESIUM 2.1 mg/dL (1.8-2.4); PHOSPHOROUS 3.7 mg/dL (2.5-4.9); POTASSIUM 4.4 mmol/L (3.5-5.1)
[2020-12-09] MEDS: CHOLECALCIFEROL 1,000 UNIT TABLET PO SCH (08:21)
[2020-12-09] MEDS: FINASTERIDE 5 MG TABLET PO SCH (08:21)
[2020-12-09] MEDS: ASPIRIN 81 MG TAB.CHEW PO SCH (08:22)
[2020-12-09] MEDS: DEXAMETHASONE 4 MG TABLET PO SCH (08:22)
[2020-12-09] MEDS: FAMOTIDINE 20 MG TABLET PO SCH (08:22)
[2020-12-09] MEDS: ZINC SULFATE 220 MG CAPSULE PO SCH ×3 (08:22→17:08)
[2020-12-09] MEDS: ASCORBIC ACID 500 MG TABLET PO SCH ×2 (08:22→21:17)
[2020-12-09] MEDS: FUROSEMIDE 20 MG/2 ML VIAL IV SCH (08:22)
[2020-12-09] MEDS: FLUCONAZOLE 100 MG TABLET PO SCH (08:22)
[2020-12-09] MEDS: ENOXAPARIN SODIUM 40 MG/0.4 ML DISP.SYRIN SQ SCH (08:23)
[2020-12-09] MEDS: FLUTICASONE/VILANTEROL 1 EACH BLST.W.DEV INH SCH (08:24)
[2020-12-09] MEDS: INSULIN REGULAR, HUMAN 300 UNIT/3 ML VIAL SQ PRN ×3 (08:29→17:11)
[2020-12-09 08:48] VITALS: BP 107/72
[2020-12-09] MEDS ORDERED: TOCILIZUMAB 600 MG in IV NORMAL SALINE 70 ML IV ONE (12:00)
--- NOTE | 2020-12-09 12:04 | NUR ---
Pt's blood sugar is 420. Dr. De La Torre aware. Will proceed with order.
[2020-12-09 14:29] LABS: LYMPHOCYTES % (MANUAL) 6 % (20-40); MONOCYTES % (MANUAL) 7 % (2-10); NEUTROPHILS % (MANUAL) 87 % (42-75)
[2020-12-09 15:40] VITALS: BP 109/66
--- NOTE | 2020-12-09 17:51 | NUR ---
Pt stable throughout the shift. Denies any acute distress or pain at this time. Kept on high flow 40L and NRB 15L, tolerating well. ST 108 on the monitor. Blood sugar monitored closely and sliding scale protocol implemented. Comfort care and needs attended. Isolation precaution maintained. Safety precautions in place. Chart checks done. Will endorse to oncoming nurse
[2020-12-09 20:25] VITALS: BP 122/62
[2020-12-09] MEDS: INSULIN GLARGINE,HUM 300 UNITS/3 ML CARTRIDGE SQ SCH (21:04)
[2020-12-09] MEDS: INSULIN REGULAR, HUMAN 300 UNITS/3 ML VIAL SQ PRN (21:06)
[2020-12-09] MEDS: TEMAZEPAM 15 MG CAPSULE PO SCH (21:17)
[2020-12-10 00:30] VITALS: BP 120/76
[2020-12-10 05:35] VITALS: BP 108/60
[2020-12-10] MEDS: BLOOD SUGAR DIAGNOSTIC 1 EACH STRIP VI SCH ×4 (06:18→21:06)
--- NOTE | 2020-12-10 06:35 | NUR ---
BS trending down from the high 420 mg/dl yesterday. Latest BS 236 m,g/dl. Patient denies ant s/s of hyperglycemia. No complaint presented. Continue on high flow and non re-breathable mask saturating 96-98%. All needs attended and met.
[2020-12-10 07:18] LABS: HEMATOCRIT 50.9 % (36.7-47.1); MEAN CORPUSCULAR HEMOGLOBIN 32.9 uug (23.8-33.4); MEAN CORPUSCULAR VOLUME 97.1 fL (73.0-96.2); PLATELET COUNT (AUTO) 348 K/uL (152-348)
[2020-12-10] MEDS: INSULIN REGULAR, HUMAN 300 UNIT/3 ML VIAL SQ PRN ×3 (07:37→16:18)
[2020-12-10] MEDS: FINASTERIDE 5 MG TABLET PO SCH (08:03)
[2020-12-10] MEDS: ASCORBIC ACID 500 MG TABLET PO SCH ×2 (08:04→20:32)
[2020-12-10] MEDS: CHOLECALCIFEROL 1,000 UNIT TABLET PO SCH (08:04)
[2020-12-10] MEDS: ASPIRIN 81 MG TAB.CHEW PO SCH (08:04)
[2020-12-10] MEDS: DEXAMETHASONE 4 MG TABLET PO SCH (08:04)
[2020-12-10] MEDS: FAMOTIDINE 20 MG TABLET PO SCH (08:04)
[2020-12-10] MEDS: FLUCONAZOLE 100 MG TABLET PO SCH (08:04)
[2020-12-10] MEDS: ENOXAPARIN SODIUM 40 MG/0.4 ML DISP.SYRIN SQ SCH (08:05)
[2020-12-10] MEDS: ZINC SULFATE 220 MG CAPSULE PO SCH ×3 (08:05→16:16)
[2020-12-10] MEDS: INSULIN GLARGINE,HUM 300 UNITS/3 ML CARTRIDGE SQ SCH ×2 (08:06→20:53)
[2020-12-10] MEDS: FUROSEMIDE 20 MG/2 ML VIAL IV SCH (08:12)
[2020-12-10 08:23] LABS: CREATININE 0.8 mg/dL (0.6-1.3); MAGNESIUM 1.8 mg/dL (1.8-2.4); PHOSPHOROUS 2.8 mg/dL (2.5-4.9); POTASSIUM 4.5 mmol/L (3.5-5.1)
[2020-12-10] MEDS: FLUTICASONE/VILANTEROL 1 EACH BLST.W.DEV INH SCH (08:50)
[2020-12-10 12:00] VITALS: BP 112/67
[2020-12-10] MEDS: ACETAMINOPHEN 325 MG TABLET PO PRN (12:05)
[2020-12-10 16:06] VITALS: BP 141/73
--- NOTE | 2020-12-10 19:50 | NUR ---
PATIENT ALERT ORIENTED, NO COMPLAIN OF SOB, NO CHEST PAIN, TELE MONITOR SINUS RHYTHM. NO COMPLAIN OF PAIN, ON 40 LITER HIGH FLOW, AND 15 LITER NASAL CANNULA TOLERATE WELL. SAT 95%, CONT TO MONITOR.
[2020-12-10 20:15] VITALS: BP 145/76
[2020-12-10] MEDS: TEMAZEPAM 15 MG CAPSULE PO SCH (20:32)
[2020-12-10] MEDS: INSULIN REGULAR, HUMAN 300 UNITS/3 ML VIAL SQ PRN (20:54)
[2020-12-11 00:02] VITALS: BP 140/75
[2020-12-11 04:19] VITALS: BP 127/74
--- NOTE | 2020-12-11 04:40 | NUR ---
PATIENT ASLEEP, BUT AROUSABLE, NO COMPLAIN SOB NO CHEST PAIN, TELE MONITOR SINUS RHYTHM, PATIENT HAS EPISODE OF KEEP ASKING FOR FOOD OR SNACK, ENCOURAGE PATIENT TO SLOW DOWN ON FOOD CONSUMPTIONS, AND THE NEED TO CONTROL HIS BLOOD SUGAR. PATIENT ON 40 LITER HIGH FLOW, AND 15 LITER NASAL CANNULA, SAT 93%. NO COMPLAIN OF PAIN, CONT TO MONITOR.
[2020-12-11] MEDS: BLOOD SUGAR DIAGNOSTIC 1 EACH STRIP VI SCH ×4 (06:09→20:45)
[2020-12-11 06:59] LABS: HEMATOCRIT 48.5 % (36.7-47.1); MEAN CORPUSCULAR HEMOGLOBIN 32.7 uug (23.8-33.4); MEAN CORPUSCULAR VOLUME 96.2 fL (73.0-96.2); PLATELET COUNT (AUTO) 326 K/uL (152-348)
[2020-12-11 07:07] LABS: BILIRUBIN,TOTAL 0.6 mg/dL (0.2-1.0); CREATININE 0.7 mg/dL (0.6-1.3); MAGNESIUM 2.1 mg/dL (1.8-2.4); PHOSPHOROUS 3.2 mg/dL (2.5-4.9); POTASSIUM 4.3 mmol/L (3.5-5.1); TOTAL PROTEIN, SERUM 6.1 g/dL (6.4-8.2)
[2020-12-11 07:14] LABS: THYROID STIMULATING HORMONE 1.186 mIU/mL (0.358-3.740)
--- NOTE | 2020-12-11 07:30 | NUR ---
Received patient alert/oriented, uses urinal, denies pain. BS was 192, insulin given per sliding scale. Kept call light within reach. Will continue to monitor. Addendum: 12/11/20 at 1528 by CHERELLE SZYMANSKI RN Patient is on continuous oxygen, double set up, 40L HF and 15L NC. Saturating at 92-95%.
[2020-12-11 08:00] VITALS: BP 120/72
[2020-12-11] MEDS: CHOLECALCIFEROL 1,000 UNIT TABLET PO SCH (08:36)
[2020-12-11] MEDS: ASPIRIN 81 MG TAB.CHEW PO SCH (08:36)
[2020-12-11] MEDS: FLUCONAZOLE 100 MG TABLET PO SCH (08:36)
[2020-12-11] MEDS: FAMOTIDINE 20 MG TABLET PO SCH (08:36)
[2020-12-11] MEDS: FUROSEMIDE 20 MG/2 ML VIAL IV SCH (08:36)
[2020-12-11] MEDS: ASCORBIC ACID 500 MG TABLET PO SCH ×2 (08:36→20:07)
[2020-12-11] MEDS: ZINC SULFATE 220 MG CAPSULE PO SCH ×3 (08:37→16:49)
[2020-12-11] MEDS: FINASTERIDE 5 MG TABLET PO SCH (08:37)
[2020-12-11] MEDS: DEXAMETHASONE 4 MG TABLET PO SCH ×3 (08:37→22:32)
[2020-12-11] MEDS: INSULIN REGULAR, HUMAN 300 UNIT/3 ML VIAL SQ PRN ×3 (08:38→16:52)
[2020-12-11] MEDS: FLUTICASONE/VILANTEROL 1 EACH BLST.W.DEV INH SCH (08:39)
[2020-12-11] MEDS: ENOXAPARIN SODIUM 40 MG/0.4 ML DISP.SYRIN SQ SCH (08:39)
[2020-12-11] MEDS: INSULIN GLARGINE,HUM 300 UNITS/3 ML CARTRIDGE SQ SCH ×2 (08:39→20:53)
--- NOTE | 2020-12-11 11:30 | NUR ---
BS 349, insulin given per sliding scale. Denies discomfort. Will continue to monitor.
[2020-12-11 11:46] VITALS: BP 121/68
[2020-12-11] MEDS: NUTRISOURCE FIBER 4 GM PACKET PO SCH ×2 (12:05→16:49)
[2020-12-11 16:00] VITALS: BP 137/73
--- NOTE | 2020-12-11 18:04 | NUR ---
No distress identified and denies pain during the shift. All needs attended. Due meds given as ordered. Dressing changed to the midline, intact, flushing well, tolerated well. Will endorse to the next shift for continuity of care.
--- NOTE | 2020-12-11 19:30 | NUR ---
RECEIVED PT AWAKE, ALERT AND ORIENTEDX4. PT IN NO ACUTE DISTRESS. IV INTACT. PT ON 40L HIGHFLOW AND 15L NONREBREATHER MASK. PT ON SINUS RHYTHM. SAFETY AND COMFORT PROVIDED. WILL CONTINUE TO MONITOR.
[2020-12-11] MEDS: TEMAZEPAM 15 MG CAPSULE PO SCH (20:06)
[2020-12-11 20:24] VITALS: BP 123/81
[2020-12-11] MEDS: INSULIN REGULAR, HUMAN 300 UNITS/3 ML VIAL SQ PRN (20:48)
--- NOTE | 2020-12-11 21:00 | NUR ---
PT HAS 341 BLOOD SUGAR . ADMINISTERED 8UNIT OF INSULIN. PT IN NO ACUTE DISTRESS. WILL CONTINUE TO MONITOR.
[2020-12-12 00:06] VITALS: BP 133/77
[2020-12-12 04:24] VITALS: BP 131/69
--- NOTE | 2020-12-12 06:02 | NUR ---
PT SLEPT INTERMITTENTLY. PT IN NO ACUTE DISTRESS. PRESCRIBED MEDICATION GIVEN AND PT TOLERATED IT WELL. PT ON SINUS RHYTHM. PT ON HIGH FLOW 40L AND 15L NONREBREATHER MASK. IV INTACT. SAFETY AND COMFORT PROVIDED. ALL NEEDS ARE MET. WILL ENDORSE TO INCOMING NURSE FOR CONTINUITY OF CARE.
[2020-12-12 06:34] LABS: HEMATOCRIT 48.1 % (36.7-47.1); MEAN CORPUSCULAR HEMOGLOBIN 32.1 uug (23.8-33.4); PLATELET COUNT (AUTO) 305 K/uL (152-348)
[2020-12-12] MEDS ORDERED: DEXAMETHASONE 4 MG TABLET ONE (06:48)
[2020-12-12] MEDS: DEXAMETHASONE 4 MG TABLET PO SCH ×3 (06:52→21:13)
[2020-12-12 06:56] LABS: CREATININE 0.7 mg/dL (0.6-1.3); MAGNESIUM 2.2 mg/dL (1.8-2.4); POTASSIUM 4.2 mmol/L (3.5-5.1)
[2020-12-12] MEDS: BLOOD SUGAR DIAGNOSTIC 1 EACH STRIP VI SCH ×4 (07:05→20:26)
[2020-12-12 07:06] LABS: *BASOS 0 % (Not Estab.); *EOS 0 % (Not Estab.); *HCT 48.6 % (37.5-51.0); *IMMATURE GRANULOCYTES 0.4 x10E3/uL (0.0-0.1); *IMMATURE GRANULOCYTES 2 % (Not Estab.); *LYMPHOCYTES 4 % (Not Estab.); *MCH 32.7 pg (26.6-33.0); *MCV 94 fL (79-97); *MONOCYTES 4 % (Not Estab.); *MONOCYTES ABSOLUTE 0.9 x10E3/uL (0.1-0.9); *NEUTROPHILS 90 % (Not Estab.); *NEUTROPHILS ABSOLUTE 20.5 x10E3/uL (1.4-7.0); *PLT 324 x10E3/uL (150-450); *RDW 12.3 % (11.6-15.4); *WBC 22.8 x10E3/uL (3.4-10.8)
--- NOTE | 2020-12-12 07:30 | NUR ---
received in bed awake and responsive. on 15 Lpm nrb and 40 Lpm 100%. no resp distress. spo2 90-91%. denies chest pain/difficulty breathing. sr on telemonitor. pt is comfortable. bed low and locked. side rails up. call light in reach.
[2020-12-12] MEDS: INSULIN REGULAR, HUMAN 300 UNIT/3 ML VIAL SQ PRN ×3 (07:52→16:59)
[2020-12-12] MEDS: ENOXAPARIN SODIUM 40 MG/0.4 ML DISP.SYRIN SQ SCH (08:40)
[2020-12-12] MEDS: FUROSEMIDE 20 MG/2 ML VIAL IV SCH (08:41)
[2020-12-12] MEDS: ASPIRIN 81 MG TAB.CHEW PO SCH (08:42)
[2020-12-12] MEDS: FLUTICASONE/VILANTEROL 1 EACH BLST.W.DEV INH SCH (08:42)
[2020-12-12] MEDS: ZINC SULFATE 220 MG CAPSULE PO SCH ×3 (08:42→17:00)
[2020-12-12] MEDS: NUTRISOURCE FIBER 4 GM PACKET PO SCH ×3 (08:43→17:00)
[2020-12-12] MEDS: ASCORBIC ACID 500 MG TABLET PO SCH ×2 (09:23→20:21)
[2020-12-12] MEDS: CHOLECALCIFEROL 1,000 UNIT TABLET PO SCH (09:24)
[2020-12-12] MEDS: FINASTERIDE 5 MG TABLET PO SCH (09:54)
[2020-12-12] MEDS: FLUCONAZOLE 100 MG TABLET PO SCH (09:55)
[2020-12-12] MEDS: FAMOTIDINE 20 MG TABLET PO SCH (09:55)
[2020-12-12] MEDS: INSULIN GLARGINE,HUM 300 UNITS/3 ML CARTRIDGE SQ SCH ×2 (09:59→20:32)
--- NOTE | 2020-12-12 12:00 | NUR ---
[place] BS 366, insulin administered per sliding scale. Jamie De La Torre ASSISTANT FITNESS MANAGER here and is aware.
[2020-12-12] MEDS ORDERED: diphenhydrAMINE 50 MG/1 ML VIAL IV ONE (12:50)
[2020-12-12] MEDS ORDERED: methylPREDNISolone SOD SUCC 40 MG/ML VIAL IV ONE (12:50)
[2020-12-12] MEDS ORDERED: ACETAMINOPHEN 650 MG/20.3 ML LIQUID UDC NG ONE (12:50)
--- NOTE | 2020-12-12 12:50 | NUR ---
Tylenol 650mg via ng not given. Duplicate order. Tylenol 650mg PO given.
[2020-12-12] MEDS ORDERED: ACETAMINOPHEN 650 MG/20.3 ML LIQUID UDC PO ONE (13:00)
[2020-12-12] MEDS ORDERED: TOCILIZUMAB 600 MG in IV NORMAL SALINE 70 ML IV ONE (13:00)
[2020-12-12 13:16] VITALS: BP 124/77
--- NOTE | 2020-12-12 13:29 | NUR ---
First dose of Actemra given as ordered. VS prior to administration of medication as follows: Bp 124/77, T98.1 hr 95, r 18 spo2 94%. Premedicated prior.
--- NOTE | 2020-12-12 14:30 | NUR ---
Actemra administered as ordered. no s/sx of adverse/allergic reactions noted. denies pain or difficulty breathing. no sob noted. will cont to monitor.
--- NOTE | 2020-12-12 15:35 | NUR ---
called [facility] pharmacy re: hiv medications but no answer. will endorse to f/up tomorrow.
[2020-12-12 15:44] VITALS: BP 137/72
--- NOTE | 2020-12-12 18:51 | NUR ---
alert and oriented x4. no acute distress. on nc 40 Lpm 100% O2 and 15 Lpm nrb mask. spo2 noted at 92% at this time but goes up to 96% max at rest. denies chest pain or sob. pt is comfortable. needs attended. safety measures in place.
--- NOTE | 2020-12-12 19:30 | NUR ---
RECEIVED PT AWAKE, ALERT AND ORIENTEDX4. PT IN NO ACUTE DISTRESS. IV INTACT. PT ON 40L HIGHFLOW AND 15L NONREBREATHER MASK AT 96%. PT ON SINUS RHYTHM. SAFETY AND COMFORT PROVIDED. WILL CONTINUE TO MONITOR.
[2020-12-12] MEDS: TEMAZEPAM 15 MG CAPSULE PO SCH (20:21)
[2020-12-12] MEDS: INSULIN REGULAR, HUMAN 300 UNITS/3 ML VIAL SQ PRN (20:32)
[2020-12-12 20:46] VITALS: BP 143/82
--- NOTE | 2020-12-13 00:36 | NUR ---
BLOOD SUGAR WAS 320 GIVEN 8 UNITS INSULIN BASED ON INSULIN PROTOCOL. PT IN NO ACUTE DISTRESS. WILL CONTINUE TO MONITOR.
[2020-12-13 00:39] VITALS: BP 111/66
[2020-12-13 04:52] VITALS: BP 111/72
--- NOTE | 2020-12-13 06:02 | NUR ---
PT SLEPT INTERMITTENTLY. PT IN NO ACUTE DISTRESS. PT ON HIGH FLOW 40L AND 15L NONREBREATHER MASK. PRESCRIBED MEDICATION GIVEN AND PT TOLERATED IT WELL. PT ON SINUS RHYTHM. SAFETY AND COMFORT PROVIDED. ALL NEEDS ARE MET. WILL ENDORSE TO INCOMING NURSE FOR CONTINUITY OF CARE.
[2020-12-13] MEDS: DEXAMETHASONE 4 MG TABLET PO SCH ×3 (06:05→21:08)
[2020-12-13 06:29] LABS: MEAN CORPUSCULAR HEMOGLOBIN 32.8 uug (23.8-33.4); MEAN CORPUSCULAR VOLUME 96.6 fL (73.0-96.2); PLATELET COUNT (AUTO) 278 K/uL (152-348)
[2020-12-13 06:39] LABS: CREATININE 0.8 mg/dL (0.6-1.3); PHOSPHOROUS 3.1 mg/dL (2.5-4.9); POTASSIUM 4.2 mmol/L (3.5-5.1)
[2020-12-13] MEDS: BLOOD SUGAR DIAGNOSTIC 1 EACH STRIP VI SCH ×4 (07:10→20:24)
[2020-12-13] MEDS: INSULIN REGULAR, HUMAN 300 UNIT/3 ML VIAL SQ PRN ×3 (07:59→17:44)
[2020-12-13] MEDS: FUROSEMIDE 20 MG/2 ML VIAL IV SCH (08:32)
[2020-12-13] MEDS: FAMOTIDINE 20 MG TABLET PO SCH (08:33)
[2020-12-13] MEDS: ZINC SULFATE 220 MG CAPSULE PO SCH ×3 (08:33→17:47)
[2020-12-13] MEDS: CHOLECALCIFEROL 1,000 UNIT TABLET PO SCH (08:33)
[2020-12-13] MEDS: FLUCONAZOLE 100 MG TABLET PO SCH (08:33)
[2020-12-13] MEDS: ASPIRIN 81 MG TAB.CHEW PO SCH (08:33)
[2020-12-13] MEDS: FINASTERIDE 5 MG TABLET PO SCH (08:33)
[2020-12-13] MEDS: ASCORBIC ACID 500 MG TABLET PO SCH ×2 (08:33→20:16)
[2020-12-13] MEDS: INSULIN GLARGINE,HUM 300 UNITS/3 ML CARTRIDGE SQ SCH ×2 (08:39→20:26)
[2020-12-13] MEDS: ENOXAPARIN SODIUM 40 MG/0.4 ML DISP.SYRIN SQ SCH (08:40)
--- NOTE | 2020-12-13 08:48 | NUR ---
DR COOK HERE TO SEE PATIENT WITH NEW ORDERS AND NOTED
--- NOTE | 2020-12-13 09:30 | NUR ---
PATIENT HAS AN EPISODES OF SATS AT 82-83 RT CALLED AND HE WAS ABLE TO ASSIST PATIENT WITH GETTING HIS SATS HIGHER
[2020-12-13] MEDS: FLUTICASONE/VILANTEROL 1 EACH BLST.W.DEV INH SCH (09:35)
[2020-12-13] MEDS: NUTRISOURCE FIBER 4 GM PACKET PO SCH ×3 (09:36→17:47)
[2020-12-13 10:06] LABS: *HELPER T-LYMPH MARKR(CD4)ABSO 423 /uL (359-1519); *HELPER T-LYNPH MARKER CD4)% 42.3 % (30.8-58.5)
[2020-12-13 11:58] VITALS: BP 123/72
--- NOTE | 2020-12-13 13:06 | NUR ---
PATIENT IS RESTING EATING LUNCH BLOOD SUGAR IS 353 INSULIN GIVEN PER COVERAGE NO S/S OF HYPERGLYCEMIC REACTIONS AT THIS TIME.
--- NOTE | 2020-12-13 14:20 | NUR ---
CALLED [facility] SPOKE WITH LUIS TUBE HEATER AND NOTIFIED HER THAT PATIENT HAS RAN OUT OF HIS HIV MEDICATIONS HAS NO ONE AVAILABLE FROM HIS FAMILY OR HOME TO BRING IN MORE SUPPLIES AND AFTER SHE CHECKED STATED THAT THE EARLIEST THEY COULD BRING THE MEDICATION WAS TOMORROW 12/14 OR FRIDAY 12/15.
--- NOTE | 2020-12-13 14:43 | NUR ---
PT RECEIVED ON HFNC 40 LPM, 100% FIO2 AND 15 LPM NRB MASK, DOUBLE SETUP. PT ENCOURAGED TO LAY PRONE OR LAY ON SIDES, PT BECOMES ANXIOUS IN THOSE POSITIONS. PT IS MOST COMFORTABLE SITTING UP. DURING SHIFT, PT HAS HAD EPISODES OF O2 DESATURATION TO THE 70'S WITH EXERTION. PT IS ABLE TO GRADUALLY RECOVER AND SATS BETWEEN 86-90% AT REST. WILL CONTINUE TO MONITOR.
[2020-12-13 16:40] VITALS: BP 134/74
--- NOTE | 2020-12-13 18:00 | NUR ---
RESTING IN BED WITH NO S/S OF HYPERGLYCEMIC REACTIONS AT THIS TIME REMAIN ON COVID ISOLATION AND COMBO O2 WITH HIGH FLOW AND NON REBREATHER MASK WITH NO SHORTNESS OF BREATH AT THIS TIME WILL CONTINUE TO OBSERVE.
--- NOTE | 2020-12-13 19:30 | NUR ---
Received patient lying in bed. AAOx4. In no apparent distress. On 40 high flow O2 at 100% with 15LPM via non-rebreather mask in place. O2 sat at 89%. Denies any SOB at this time. HOB elevated. Midline line on right upper arm intact and patent. Sinus tachy on tele with HR of 105/min. COVID precaution observed. Safety measure initiated and call black within reached.
[2020-12-13 20:00] VITALS: BP 146/79
[2020-12-13] MEDS: TEMAZEPAM 15 MG CAPSULE PO SCH (20:16)
[2020-12-13] MEDS: INSULIN REGULAR, HUMAN 300 UNITS/3 ML VIAL SQ PRN (20:25)
[2020-12-14] VITALS (16 sets, daily range): BP systolic 101–156; BP diastolic 49–90
[2020-12-14 06:01] LABS: HEMATOCRIT 51.7 % (36.7-47.1); MEAN CORPUSCULAR HEMOGLOBIN 32.5 uug (23.8-33.4); MEAN CORPUSCULAR VOLUME 96.5 fL (73.0-96.2); PLATELET COUNT (AUTO) 263 K/uL (152-348)
[2020-12-14] MEDS: DEXAMETHASONE 4 MG TABLET PO SCH (06:10)
[2020-12-14 06:28] LABS: CREATININE 0.8 mg/dL (0.6-1.3); MAGNESIUM 2.2 mg/dL (1.8-2.4); PHOSPHOROUS 3.5 mg/dL (2.5-4.9); POTASSIUM 4.3 mmol/L (3.5-5.1)
[2020-12-14] MEDS: BLOOD SUGAR DIAGNOSTIC 1 EACH STRIP VI SCH ×4 (06:32→20:55)
--- NOTE | 2020-12-14 06:38 | NUR ---
AAOx4. In no apparent distress. On 40 high flow O2 at 100% with 15LPM via non-rebreather mask in place. O2 sat at 89%. Midline line on right upper arm intact and patent. NSR on tele with HR of 88/min. COVID precaution observed. Needs attended to and met. Safety measure maintained and call black within reached.
--- NOTE | 2020-12-14 07:00 | NUR ---
RECEIVED PATIENT ON A HI FLOW 40%/15L NRM SATURATING 79-81% HR 110, REFUSED TO EAT BREAKFAST. WILL FOLLOW-UP WITH HOSPITALIST
[2020-12-14] MEDS: INSULIN REGULAR, HUMAN 300 UNIT/3 ML VIAL SQ PRN ×2 (08:23→11:15)
[2020-12-14] MEDS: ZINC SULFATE 220 MG CAPSULE PO SCH ×3 (08:24→17:00)
[2020-12-14] MEDS: FUROSEMIDE 20 MG/2 ML VIAL IV SCH (08:24)
[2020-12-14] MEDS: ASPIRIN 81 MG TAB.CHEW PO SCH (08:24)
[2020-12-14] MEDS: ENOXAPARIN SODIUM 40 MG/0.4 ML DISP.SYRIN SQ SCH (08:24)
[2020-12-14] MEDS: CHOLECALCIFEROL 1,000 UNIT TABLET PO SCH (08:24)
[2020-12-14] MEDS: FAMOTIDINE 20 MG TABLET PO SCH (08:25)
[2020-12-14] MEDS: FINASTERIDE 5 MG TABLET PO SCH (08:25)
[2020-12-14] MEDS: ACETAMINOPHEN 325 MG TABLET PO PRN (08:25)
[2020-12-14] MEDS: FLUCONAZOLE 100 MG TABLET PO SCH (08:25)
[2020-12-14] MEDS: ASCORBIC ACID 500 MG TABLET PO SCH ×2 (08:25→20:27)
[2020-12-14] MEDS: NUTRISOURCE FIBER 4 GM PACKET PO SCH ×3 (08:25→17:00)
[2020-12-14] MEDS: FLUTICASONE/VILANTEROL 1 EACH BLST.W.DEV INH SCH (08:26)
[2020-12-14] MEDS: INSULIN GLARGINE,HUM 300 UNITS/3 ML CARTRIDGE SQ SCH ×2 (08:28→20:55)
--- NOTE | 2020-12-14 10:06 | NUR ---
SEEN BY RONEN ARREDONDO NP AND DR COOK AND DECIDED TO TRANSFER PATIENT TO CCU FOR HIGHER LEVEL OF CARE
--- NOTE | 2020-12-14 10:36 | NUR ---
TRANSFERRED TO CCU ACCOMPANIED BY STAFF AND CLIP AND HANGER ATTACHER VIA WHEELCHAIR REPORT GIVEN TO STAFF,
--- NOTE | 2020-12-14 10:41 | NUR ---
Received pt. from Nursing supervisor hot strip mill via wheel-chair and accompanied by RT. Vital. Patient AAOx4. saturation of 85 on BIPAP 1610 Rate of 18, 100% Patient tachypneic with RR of 40-41. And getting worse with exertion. Patient situated in bed and saturation up to 92-94%. ML ro RUE in place. No skin breakdown upon assessment. vitals of: HR 85, sbp of 136/81, RR40, sat of 94. on bipap. will continue to monitor.
--- NOTE | 2020-12-14 11:00 | NUR ---
Attending Cristin Hoang in the unit to see and examine pt. report given orders received and implemented.
[2020-12-14 11:15] LABS: ABG BASE EXCESS 6.1 mmol/L; ABG HCO3 29.6 mmol/L; ABG PCO2 38.7 mmHg (35.0-45.0); ABG PH 7.501 (7.350-7.450); ABG PO2 101.5 mmHg (75.0-100.0); ABG SITE RIGHT RADIAL; ABG TOTAL HEMOGLOBIN 20.3 G/dL (13.5-18.0); COHb 0.3 % (0.5-1.5); MetHb 0.5 % (0.0-1.5); O2Hb 97.2 % (94.0-97.0); VENT MODE BIPAP
[2020-12-14] MEDS ORDERED: IV NS 1000 ML 1,000 ML IV PRN (11:30)
[2020-12-14] MEDS ORDERED: HEPARIN SODIUM,PORCINE 5,000 UNITS/ML VIAL IV ONE (12:30)
[2020-12-14] MEDS ORDERED: diphenhydrAMINE 50 MG/1 ML VIAL IV ONE (12:50)
[2020-12-14] MEDS ORDERED: ACETAMINOPHEN 650 MG/20.3 ML LIQUID UDC PO ONE (12:50)
[2020-12-14] MEDS ORDERED: methylPREDNISolone SOD SUCC 40 MG/ML VIAL IV ONE (12:50)
[2020-12-14] MEDS: HEPARIN/D5W DRIP 500 ML IV PRN (13:03)
[2020-12-14] MEDS: MEROPENEM 0.5 G in IV NORMAL SALINE 50 ML IV SCH ×2 (13:10→20:27)
[2020-12-14] MEDS: DEXAMETHASONE SOD PHOSPHATE 10 MG INJ IV SCH ×2 (13:11→21:40)
[2020-12-14] MEDS: VANCOMYCIN IV 1,000 MG in IV DEXTROSE 5% 250 ML IV SCH ×2 (13:11→21:40)
--- NOTE | 2020-12-14 14:23 | NUR ---
Patient seen by computer numerical control programmer Dr. Thomas orders to continue with care plan received.
--- NOTE | 2020-12-14 15:15 | NUR ---
A call from Pt's significant other Ms. Gallo Kourtney to inquire about pt's condition. Ms. Gallo stated "why didn't you give me a call to inform me that Mr. Roche is in the ICU" "I want to know what's going on cause since this morning He's not answering any of my txt messages" Ms. Gallo was giving and update on her 's condition. And at this time She requested to have attending give her a call to update her on pt's care plan. Attending Surekha Muniz called and notify o Ms. Gallo's request.
--- NOTE | 2020-12-14 16:29 | NUR ---
A set of 2 keys handed to Nursing filter plant supervisor as requested by community resource officer. As stated by director " will pick them up from security". Patient agreeable to send both keys to be taken down.
[2020-12-14] MEDS ORDERED: COBICISTAT PO SCH (17:00)
[2020-12-14] MEDS ORDERED: EMTRICITABINE PO SCH (17:00)
[2020-12-14] MEDS ORDERED: [UNRECOGNIZED DRUG - OTHER] PO SCH (17:00)
[2020-12-14] MEDS ORDERED: DOLUTEGRAVIR PO SCH (17:00)
[2020-12-14] MEDS ORDERED: TENOFOVIR ALAFENAMIDE PO SCH (17:00)
[2020-12-14] MEDS ORDERED: [UNRECOGNIZED DRUG - OTHER] PO SCH (17:00)
[2020-12-14] MEDS ORDERED: [UNRECOGNIZED DRUG - OTHER] PO SCH (17:00)
[2020-12-14] MEDS ORDERED: DARUNAVIR PO SCH (17:00)
--- NOTE | 2020-12-14 18:40 | NUR ---
At this time while I was rendering care pt. verbalized desire to have a referral to see a social service coordinator. When inquire about his concerns pt. stated "I wanna make my my decision maker both financial and medical I want put everything in her name and make her my beneficiary, I know I'm not doing well" Patient assure that tomorrow morning 12/15/20 social service coordinator will be notified of his request
--- NOTE | 2020-12-14 18:46 | NUR ---
Left pt. on bed resting comfortable. Patient AAOx4. saturation of 94% on BIPAP 16/10 Rate of 18, 100% Patient remains tachypneic with RR of 38-40. And desaturates to 88% with exertion. Hemodynamically stable sbp within desired limits with Sinus rhythm on the 80-90's. Remains NPO. reddy to gravity. ML to RUE in place and infusing with heparin at 1550units/hr. with next ptt at 1900, NS at 50ccf/hr.. No skin breakdown. will endorse to incoming shift.
--- NOTE | 2020-12-14 19:05 | NUR ---
received patient awake ,oriented , able to follow command , on bipap rate of18 100 % fio2, heparin on 1550 units / hr , ns at 50 ml , iv intact samy , reddy draining , , no fever , noted
[2020-12-14] MEDS: TEMAZEPAM 15 MG CAPSULE PO SCH (22:18)
[2020-12-14] MEDS: INSULIN REGULAR, HUMAN 300 UNITS/3 ML VIAL SQ PRN (23:37)
[2020-12-15] VITALS (24 sets, daily range): BP systolic 89–140; BP diastolic 57–91
--- NOTE | 2020-12-15 | NUR ---
patient refused to be helped to be turned and changed position , despite encouragement and education about developing pressure sores
--- NOTE | 2020-12-15 01:11 | NUR ---
PATIENT ON CONT BI/PAP WITH FULL LARGE MASK ,WITH CURRENT SETTINGS, 16/10, RR18, FIO2 @ 100%, AWAKE AND ALERT , AT TIMES, SLEEPING GOOD AT TIMES, NO BI/PAP CHANGES MADE AT THIS TIME , SAT 93_95% APPROX, ADJUST MASK AT TIMES, PT VERY COOPERATIVE. Barbara EDWARDS RCP Addendum: 12/15/20 at 0112 by DELVIN EDWARDS RT Amended: Links added.
[2020-12-15] MEDS: HEPARIN/D5W DRIP 500 ML IV PRN (02:44)
[2020-12-15] MEDS: MEROPENEM 0.5 G in IV NORMAL SALINE 50 ML IV SCH ×3 (04:25→21:18)
[2020-12-15] MEDS: VANCOMYCIN IV 1,000 MG in IV DEXTROSE 5% 250 ML IV SCH ×2 (04:59→14:45)
--- NOTE | 2020-12-15 05:00 | NUR ---
refused to be cleaned and turned
[2020-12-15 05:07] LABS: HEMATOCRIT 53.8 % (36.7-47.1); MEAN CORPUSCULAR HEMOGLOBIN 32.1 uug (23.8-33.4); MEAN CORPUSCULAR VOLUME 96.5 fL (73.0-96.2); PLATELET COUNT (AUTO) 271 K/uL (152-348)
[2020-12-15] MEDS: MORPHINE SULFATE 2 MG/1 ML DISP.SYRIN IV PRN (05:30)
[2020-12-15] MEDS: INSULIN REGULAR, HUMAN 300 UNIT/3 ML VIAL SQ PRN ×3 (05:31→18:11)
[2020-12-15 05:44] LABS: ALANINE AMINOTRANSFERASE 38 U/L (16-63); ALKALINE PHOSPHATASE 178 U/L (50-136); ASPARTATE AMINOTRANSFERASE 29 U/L (15-37); BILIRUBIN,TOTAL 0.6 mg/dL (0.2-1.0); CARBON DIOXIDE 32 mmol/L (21-32); CHLORIDE 107 mmol/L (98-107); CREATININE 0.8 mg/dL (0.6-1.3); GLUCOSE 152 mg/dL (74-106); MAGNESIUM 2.1 mg/dL (1.8-2.4); POTASSIUM 4.4 mmol/L (3.5-5.1); TOTAL PROTEIN, SERUM 5.7 g/dL (6.4-8.2); UREA NITROGEN, BLOOD 37 mg/dL (7-18)
[2020-12-15 05:48] LABS: BILIRUBIN,DIRECT < 0.1 mg/dL (0.0-0.2)
[2020-12-15] MEDS: BLOOD SUGAR DIAGNOSTIC 1 EACH STRIP VI SCH ×3 (05:55→18:06)
[2020-12-15] MEDS: DEXAMETHASONE SOD PHOSPHATE 10 MG INJ IV SCH ×3 (05:56→22:21)
[2020-12-15 06:00] LABS: BAND % (MANUAL) 2 % (0-10); LYMPHOCYTES % (MANUAL) 2 % (20-40); MONOCYTES % (MANUAL) 1 % (2-10); NEUTROPHILS % (MANUAL) 95 % (42-75)
--- NOTE | 2020-12-15 06:00 | NUR ---
awake , oriented , able to follow command , heparin running at 1550 units /hour , ns at 50 ml / hr , bs 178, sr at 73 , sbp 135 / 86 , 89 % on bipap of 16/10 18 fio2 of 100 % , rr 18 , no fever,
--- NOTE | 2020-12-15 08:00 | NUR ---
Patient refusing to reposition. Patient desaturates when verbalizing needs or answering questions. patient decompensates with any kind of repositioning.
[2020-12-15 08:08] LABS: ABG BASE EXCESS 2.8 mmol/L; ABG HCO3 29.1 mmol/L; ABG PCO2 49.7 mmHg (35.0-45.0); ABG PH 7.385 (7.350-7.450); ABG PO2 78.7 mmHg (75.0-100.0); ABG SITE RIGHT RADIAL; COHb 0.1 % (0.5-1.5); MetHb 0.3 % (0.0-1.5); O2Hb 95.1 % (94.0-97.0); VENT MODE BIPAP
--- NOTE | 2020-12-15 08:22 | NUR ---
A call from Radiologist Alexandra Armando with reports of chest X-ray results positive for Pneumomediastinum. Fork Lift Technician Dr. Xiong called to be notified no new orders received.
[2020-12-15] MEDS: NUTRISOURCE FIBER 4 GM PACKET PO SCH ×3 (08:30→17:00)
[2020-12-15] MEDS: FAMOTIDINE. 20 MG/2 ML VIAL IV SCH (08:30)
[2020-12-15] MEDS: FINASTERIDE 5 MG TABLET PO SCH (08:30)
[2020-12-15] MEDS: ASCORBIC ACID 500 MG TABLET PO SCH ×2 (08:30→21:40)
[2020-12-15] MEDS: FLUCONAZOLE 100 MG TABLET PO SCH (08:30)
[2020-12-15] MEDS: ASPIRIN 81 MG TAB.CHEW PO SCH (08:30)
[2020-12-15] MEDS: FUROSEMIDE 20 MG/2 ML VIAL IV SCH (08:30)
[2020-12-15] MEDS: ZINC SULFATE 220 MG CAPSULE PO SCH ×3 (08:31→17:00)
[2020-12-15] MEDS: FLUTICASONE/VILANTEROL 1 EACH BLST.W.DEV INH SCH (08:31)
[2020-12-15] MEDS: CHOLECALCIFEROL 1,000 UNIT TABLET PO SCH (08:31)
[2020-12-15] MEDS: INSULIN GLARGINE,HUM 300 UNITS/3 ML CARTRIDGE SQ SCH ×2 (08:35→22:15)
--- NOTE | 2020-12-15 10:00 | NUR ---
Pt desaturating with every movement, when pt speaks his O2 drops significantly. Pt is very sensitive with movement and prefers to stay still in bed. pt currently saturating at 90% O2 on BIPAP.
[2020-12-15] MEDS ORDERED: NOREPINEPHRINE BITARTRATE 8 MG in IV NORMAL SALINE 242 ML IV PRN (10:15)
[2020-12-15] MEDS ORDERED: PROPOFOL 100 ML IV PRN ×2 (10:15→19:30)
[2020-12-15] MEDS: ENOXAPARIN SODIUM 80 MG/0.8 ML DISP.SYRIN SQ SCH ×2 (12:44→21:41)
--- NOTE | 2020-12-15 14:19 | NUR ---
BIPAP SETTING CHANGES MADE PER DR COOK 27/12/RATE 20/ OO% FIO2
--- NOTE | 2020-12-15 16:09 | NUR ---
Clinical Microbiology Lab Assistant Note SW Consult Patient was alert and oriented when speaking with JADYN. SW visited patient at CCU due to patient request to discuss power of assistant attorney general with SW. Patient informed SW that he needed assistance with assigning his girlfriend as his DPOA before he is intubated. Patient stated that he wanted his girlfriend Cleo, to make medical decisions for him and that it was his wishes. SW Family Contact SW spoke with girlfriend, Cleo Isaac, , to discuss patient assigning her as DPOA. JADYN explained to Ms. Isaac the process of obtaining DPOA and having her set up a notary come visit patient. JADYN provided mobile notary at [phone] Jayda Rice, contact for Ms. Isaac to communicate with. SW Patient Contact SW visited patient to discuss DPOA. Patient stated that he would like to add his sister, Hansa Valadez, as second DPOA in case anything were to occur to Ms. Isaac, but he did not know her number or address but Ms. Isaac did. Patient signed the DPOA for his girlfriend Cleo Isaac. SW Family Contact JADYN spoke with Ms. Isaac, , who provided information on a Notary who can come see patient at 5PM. Ms. Isaac stated she is feeling overwhelmed and not sure what to do. JADYN informed Ms. Isaac that she would call Sherry Eason at [phone], to help coordinate for her. SW Notary contact JADYN spoke with Sherry eason at [phone], and discussed patients situation. JADYN informed jenaro of hospital procedures for coming to see the patient. Jenaro informed JADYN that she does not meet requirements for hospital visits. SW Family Contact JADYN spoke with Ms. Isaac, , to inform her that Sherry Eason, could not be the notary due to not meeting hospital visitation requirements. Informed Ms. Isaac to keep looking for a notary. SW Notary contact JADYN spoke with Wilfredo eason [employer] [phone], and discussed patients situation. JADYN informed jenaro of hospital procedures for coming to see the patient. Jenaro informed JADYN that she can not attend this patient due to his COVID status. SW Notary contact JADYN spoke with Momo eason [phone] and discussed patients situation. JADYN informed jenaro of hospital procedures for coming to see the patient. Momo was able to have an appointment for jenaro to come see patient today (12/15/2020) at 5PM. JADYN informed security and nurses at the CCU. SW Family contact JADYN informed girlfriend Cleoalison Isaac, , of [employer] being set up for today.
[2020-12-15] MEDS ORDERED: DARUNAVIR PO SCH (17:00)
[2020-12-15] MEDS ORDERED: EMTRICITABINE PO SCH (17:00)
[2020-12-15] MEDS ORDERED: [UNRECOGNIZED DRUG - OTHER] PO SCH (17:00)
[2020-12-15] MEDS ORDERED: [UNRECOGNIZED DRUG - OTHER] PO SCH (17:00)
[2020-12-15] MEDS ORDERED: [UNRECOGNIZED DRUG - OTHER] PO SCH (17:00)
[2020-12-15] MEDS ORDERED: TENOFOVIR ALAFENAMIDE PO SCH (17:00)
[2020-12-15] MEDS ORDERED: DOLUTEGRAVIR PO SCH (17:00)
[2020-12-15] MEDS ORDERED: COBICISTAT PO SCH (17:00)
--- NOTE | 2020-12-15 17:30 | NUR ---
Jenaro came to stamp power of state's attorney for healthcare form and spoke to the patient for identification.
--- NOTE | 2020-12-15 19:05 | NUR ---
received patient awake on bipap 16 / 10 18 fio2 100 % , iv and reddy intact , no fever
--- NOTE | 2020-12-15 19:30 | NUR ---
jonah is here to see patient , notified of patient's complain of sob . called dr delgado er doctor to see and intubate patient
--- NOTE | 2020-12-15 19:45 | NUR ---
billy sharp np is here to see patient , notified of patient's status , and plan for intubation made , tallked to the patient of being intubated and the whole process ,
--- NOTE | 2020-12-15 19:50 | NUR ---
dr delgado and er team are here at the bedside , talked to the patient about intubation
--- NOTE | 2020-12-15 20:02 | NUR ---
dr kaur called , notified , patient was intubated , cs and vent settings given and medication given , gave an order , ac 16 tv 500 p12 , titrate fio2 to keep oxygen saturation >92 % . 7.5 and lip line of 25
--- NOTE | 2020-12-15 20:04 | NUR ---
jose manuel archuleta is infomed of billy sharp of patient status being intubated
--- NOTE | 2020-12-15 20:08 | NUR ---
cxr done to verify placement post intubation , and ngt
[2020-12-15] MEDS ORDERED: SUCCINYLCHOLINE CHLORIDE 200 MG/10 ML VIAL IV ONE (20:15)
[2020-12-15] MEDS ORDERED: ETOMIDATE 20 MG/10 ML VIAL IV ONE (20:15)
--- NOTE | 2020-12-15 20:30 | NUR ---
ngt inserted with 16 fr , placement verified by cxr , aspiration and auscultation
--- NOTE | 2020-12-15 20:45 | NUR ---
dr guardado is here to see patient
[2020-12-15] MEDS: TEMAZEPAM 15 MG CAPSULE PO SCH (21:00)
[2020-12-15] MEDS: LORAZEPAM 2 MG/1 ML VIAL IV PRN (21:04)
[2020-12-15] MEDS: GLUCERNA 1.2 1000ML LIQUID GT SCH (21:17)
[2020-12-15] MEDS: PROPOFOL 100 ML IV PRN ×2 (21:17→21:51)
[2020-12-15] MEDS: VANCOMYCIN IV 1,250 MG in IV DEXTROSE 5% 250 ML IV SCH (21:18)
[2020-12-15 21:19] LABS: ABG BASE EXCESS 1.7 mmol/L; ABG HCO3 33.9 mmol/L; ABG PCO2 85.4 mmHg (35.0-45.0); ABG PH 7.217 (7.350-7.450); ABG PO2 91.5 mmHg (75.0-100.0); ABG SITE LEFT RADIAL; ABG TOTAL HEMOGLOBIN 20.6 G/dL (13.5-18.0); COHb 0.3 % (0.5-1.5); MetHb 0.5 % (0.0-1.5); O2Hb 94.5 % (94.0-97.0); VENT MODE VENT - A/C; VT, ABG 500 mL
--- NOTE | 2020-12-15 21:30 | NUR ---
dr kaur is called for cxr and abg resuts , received orders of tv 550 , cxr and abg in am
--- NOTE | 2020-12-15 22:09 | NUR ---
debone supervisor called to notify for picc line order
[2020-12-15] MEDS ORDERED: Z GUARD REMEDY PASTE 57 GM TUBE TOP PRN (22:30)
[2020-12-16] VITALS (96 sets, daily range): BP systolic 82–120; BP diastolic 54–88
[2020-12-16] MEDS ORDERED: NOREPINEPHRINE BITARTRATE 4 MG/4 ML VIAL IV ONE (00:17)
[2020-12-16] MEDS: PROPOFOL 100 ML IV PRN ×9 (00:30→21:25)
--- NOTE | 2020-12-16 00:35 | NUR ---
levophed started to keep sbp > 90
[2020-12-16] MEDS: BLOOD SUGAR DIAGNOSTIC 1 EACH STRIP VI SCH ×4 (00:48→17:19)
[2020-12-16] MEDS: INSULIN REGULAR, HUMAN 300 UNIT/3 ML VIAL SQ PRN ×4 (00:50→17:24)
[2020-12-16] MEDS: LORAZEPAM 2 MG/1 ML VIAL IV PRN (04:09)
[2020-12-16] MEDS: ACETAMINOPHEN 325 MG TABLET PO PRN ×2 (04:45→12:13)
[2020-12-16 05:05] LABS: CREATININE 1.2 mg/dL (0.6-1.3); POTASSIUM 5.3 mmol/L (3.5-5.1)
[2020-12-16 05:09] LABS: HEMATOCRIT 59.1 % (36.7-47.1); MAGNESIUM 2.7 mg/dL (1.8-2.4); MEAN CORPUSCULAR HEMOGLOBIN 32.6 uug (23.8-33.4); MEAN CORPUSCULAR VOLUME 98.2 fL (73.0-96.2); PHOSPHOROUS 5.9 mg/dL (2.5-4.9); PLATELET COUNT (AUTO) 284 K/uL (152-348)
[2020-12-16] MEDS: DEXAMETHASONE SOD PHOSPHATE 10 MG INJ IV SCH ×3 (05:27→23:10)
[2020-12-16] MEDS: VANCOMYCIN IV 1,250 MG in IV DEXTROSE 5% 250 ML IV SCH ×3 (05:28→22:00)
[2020-12-16] MEDS: MEROPENEM 0.5 G in IV NORMAL SALINE 50 ML IV SCH ×3 (05:28→21:13)
--- NOTE | 2020-12-16 05:50 | NUR ---
dr patel was called to notify of sustaining increased heart rate to 120's , and current medications patient receiving ang tf , and cursent status of the patient this morning lab work results , received order of kayexalate 15 gm and switch levophed to neosynephrine
[2020-12-16] MEDS ORDERED: SODIUM POLYSTYRENE SULFONATE 15 G/60 ML LIQUID UDC PO ONE (06:00)
--- NOTE | 2020-12-16 06:04 | NUR ---
dr domingo is here to see patient , updated on patient's condition
--- NOTE | 2020-12-16 06:19 | NUR ---
arousable to deep pain with no spontaneous eye opening , diprivan at 75mcg , levophed was dc'd and neosynephrine started , dr patel was informed of high heart rate , tf at 30 ml , placement checked and no residual noted via ngt , reddy and iv intact
[2020-12-16] MEDS: PHENYLEPHRINE IV 50 MG in IV NORMAL SALINE 245 ML IV PRN (06:20)
[2020-12-16] MEDS ORDERED: PHENYLEPHRINE 10 MG/1 ML VIAL ONE (06:22)
[2020-12-16] MEDS ORDERED: SODIUM POLYSTYRENE SULFONATE 15 G/60 ML LIQUID UDC NG ONE (06:30)
[2020-12-16] MEDS: MORPHINE SULFATE 2 MG/1 ML DISP.SYRIN IV PRN (06:41)
[2020-12-16 08:01] LABS: ABG HCO3 26.2 mmol/L; ABG PCO2 67.1 mmHg (35.0-45.0); ABG PO2 130.2 mmHg (75.0-100.0); ABG SITE LEFT BRACHIAL; ABG TOTAL HEMOGLOBIN 20.7 G/dL (13.5-18.0); COHb 0.3 % (0.5-1.5); MetHb 0.8 % (0.0-1.5); O2Hb 97.4 % (94.0-97.0); VENT MODE VENT - A/C; VT, ABG 550 mL
--- NOTE | 2020-12-16 08:13 | NUR ---
RN receiving ABG results from RT - Dr Xiong informed of new ABGs - PH 7.21 pco2 67 PO2 130 BICARB 26 / Current setings A/C 16 TV 550 FIO2 100% PEEP 12 - pt resp rate at 18 - pt somulent /
[2020-12-16] MEDS: FLUTICASONE/VILANTEROL 1 EACH BLST.W.DEV INH SCH (09:00)
[2020-12-16] MEDS ORDERED: FUROSEMIDE 20 MG/2 ML VIAL IV SCH (09:00)
--- NOTE | 2020-12-16 09:09 | NUR ---
unable to do " teaching " per sedation requirement - pt somulent / sedated
[2020-12-16] MEDS: ASPIRIN 81 MG TAB.CHEW PO SCH (09:49)
[2020-12-16] MEDS: FLUCONAZOLE 100 MG TABLET PO SCH (09:49)
[2020-12-16] MEDS: FINASTERIDE 5 MG TABLET PO SCH (09:49)
[2020-12-16] MEDS: ZINC SULFATE 220 MG CAPSULE PO SCH ×3 (09:49→16:52)
[2020-12-16] MEDS: ASCORBIC ACID 500 MG TABLET PO SCH ×2 (09:49→21:13)
[2020-12-16] MEDS: ENOXAPARIN SODIUM 80 MG/0.8 ML DISP.SYRIN SQ SCH ×2 (09:52→21:14)
[2020-12-16] MEDS: FAMOTIDINE. 20 MG/2 ML VIAL IV SCH (09:53)
[2020-12-16] MEDS: INSULIN GLARGINE,HUM 300 UNITS/3 ML CARTRIDGE SQ SCH ×2 (09:56→21:16)
[2020-12-16] MEDS: NUTRISOURCE FIBER 4 GM PACKET PO SCH ×3 (09:59→16:52)
[2020-12-16 11:15] LABS: ABG BASE EXCESS 2.5 mmol/L; ABG HCO3 33.2 mmol/L; ABG PCO2 73.7 mmHg (35.0-45.0); ABG PH 7.271 (7.350-7.450); ABG PO2 136.9 mmHg (75.0-100.0); ABG SITE LEFT BRACHIAL; ABG TOTAL HEMOGLOBIN 20.8 G/dL (13.5-18.0); COHb 0.3 % (0.5-1.5); MetHb 0.7 % (0.0-1.5); O2Hb 97.8 % (94.0-97.0); VENT MODE VENT - A/C; VT, ABG 500 mL
[2020-12-16] MEDS: CHOLECALCIFEROL 1,000 UNIT TABLET PO SCH (11:16)
--- NOTE | 2020-12-16 11:18 | NUR ---
Follow up ABG completed by RT - informed - new orders pending
--- NOTE | 2020-12-16 13:07 | NUR ---
RT. Sher in the unit Vent rate up to 28 at this time, as ordered by Dr. Xiong sign carpenter.
[2020-12-16] MEDS: DESCOVY 200-25MG TABLET GT SCH (13:54)
[2020-12-16] MEDS: PREZCOBIX GT SCH (13:54)
[2020-12-16] MEDS: [UNRECOGNIZED DRUG - OTHER] GT SCH (13:55)
[2020-12-16 14:23] LABS: LYMPHOCYTES % (MANUAL) 1 % (20-40); MONOCYTES % (MANUAL) 4 % (2-10); NEUTROPHILS % (MANUAL) 95 % (42-75)
--- NOTE | 2020-12-16 15:20 | NUR ---
pt's significant other calling and requesting up date - general information provided - agree to wait for MD update - request made to MD - informing of pt's significant others request
[2020-12-16] MEDS: TEMAZEPAM 15 MG CAPSULE PO SCH (21:00)
--- NOTE | 2020-12-16 22:00 | NUR ---
tunred and reposition patient . offloaded back with pillows , hob up .suction patient via ett and via mouth oral care done . scds used to bilateral lower extremities .
--- NOTE | 2020-12-16 22:00 | NUR ---
vancomycin level high ( 23.4) (h).hold vanco medication .
[2020-12-17] VITALS (96 sets, daily range): BP systolic 65–131; BP diastolic 48–78
[2020-12-17] MEDS: BLOOD SUGAR DIAGNOSTIC 1 EACH STRIP VI SCH ×4 (00:37→18:06)
[2020-12-17] MEDS: INSULIN REGULAR, HUMAN 300 UNIT/3 ML VIAL SQ PRN ×4 (00:38→18:06)
[2020-12-17] MEDS: PROPOFOL 100 ML IV PRN ×9 (02:00→22:37)
[2020-12-17] MEDS: PHENYLEPHRINE IV 50 MG in IV NORMAL SALINE 245 ML IV PRN ×2 (02:01→18:08)
[2020-12-17] MEDS: MEROPENEM 0.5 G in IV NORMAL SALINE 50 ML IV SCH ×3 (04:44→21:02)
[2020-12-17 05:17] LABS: HEMATOCRIT 57.2 % (36.7-47.1); MEAN CORPUSCULAR HEMOGLOBIN 32.5 uug (23.8-33.4)
[2020-12-17 05:18] LABS: MEAN CORPUSCULAR VOLUME 98.2 fL (73.0-96.2); PLATELET COUNT (AUTO) 208 K/uL (152-348)
[2020-12-17 05:27] LABS: CREATININE 1.2 mg/dL (0.6-1.3); POTASSIUM 5.4 mmol/L (3.5-5.1)
[2020-12-17] MEDS: DEXAMETHASONE SOD PHOSPHATE 10 MG INJ IV SCH ×3 (05:36→21:10)
[2020-12-17] MEDS: VANCOMYCIN IV 1,250 MG in IV DEXTROSE 5% 250 ML IV SCH (05:37)
[2020-12-17 06:05] LABS: ALANINE AMINOTRANSFERASE 40 U/L (16-63); ALKALINE PHOSPHATASE 169 U/L (50-136); ASPARTATE AMINOTRANSFERASE 38 U/L (15-37); BILIRUBIN,DIRECT < 0.1 mg/dL (0.0-0.2); BILIRUBIN,TOTAL 0.4 mg/dL (0.2-1.0); FERRITIN 1377 ng/mL (26-388); LACTATE DEHYDROGENASE 607 U/L (85-227); MAGNESIUM 2.7 mg/dL (1.8-2.4); PHOSPHOROUS 3.7 mg/dL (2.5-4.9); TOTAL PROTEIN, SERUM 5.3 g/dL (6.4-8.2); TRIGLYCERIDES 303 MG/DL (30-150)
[2020-12-17 07:03] LABS: BAND % (MANUAL) 1 % (0-10); LYMPHOCYTES % (MANUAL) 3 % (20-40); MONOCYTES % (MANUAL) 4 % (2-10); NEUTROPHILS % (MANUAL) 92 % (42-75)
[2020-12-17] MEDS: GLUCERNA 1.2 1000ML LIQUID GT SCH (07:12)
[2020-12-17 08:03] LABS: ABG BASE EXCESS 6.5 mmol/L; ABG PCO2 80.4 mmHg (35.0-45.0); ABG PH 7.292 (7.350-7.450); ABG PO2 87.7 mmHg (75.0-100.0); ABG SITE RIGHT RADIAL; ABG TOTAL HEMOGLOBIN 20.5 G/dL (13.5-18.0); COHb 0.3 % (0.5-1.5); MetHb 0.7 % (0.0-1.5); O2Hb 95.9 % (94.0-97.0); VENT MODE VENT - A/C; VT, ABG 500 mL
[2020-12-17] MEDS: VANCOMYCIN IV 1,000 MG in IV DEXTROSE 5% 250 ML IV SCH ×2 (08:05→16:00)
[2020-12-17] MEDS: ASCORBIC ACID 500 MG TABLET PO SCH ×2 (08:21→21:07)
[2020-12-17] MEDS: FAMOTIDINE. 20 MG/2 ML VIAL IV SCH (08:21)
[2020-12-17] MEDS: FLUCONAZOLE 100 MG TABLET PO SCH (08:21)
[2020-12-17] MEDS: ZINC SULFATE 220 MG CAPSULE PO SCH ×3 (08:21→17:46)
[2020-12-17] MEDS: ASPIRIN 81 MG TAB.CHEW PO SCH (08:21)
[2020-12-17] MEDS: PREZCOBIX GT SCH (08:22)
[2020-12-17] MEDS: [UNRECOGNIZED DRUG - OTHER] GT SCH (08:22)
[2020-12-17] MEDS: DESCOVY 200-25MG TABLET GT SCH (08:22)
[2020-12-17] MEDS: CHOLECALCIFEROL 1,000 UNIT TABLET PO SCH (08:24)
[2020-12-17] MEDS: ENOXAPARIN SODIUM 80 MG/0.8 ML DISP.SYRIN SQ SCH ×2 (08:26→21:10)
[2020-12-17] MEDS: INSULIN GLARGINE,HUM 300 UNITS/3 ML CARTRIDGE SQ SCH ×2 (08:27→21:55)
[2020-12-17] MEDS: FINASTERIDE 5 MG TABLET PO SCH (08:29)
[2020-12-17] MEDS: NUTRISOURCE FIBER 4 GM PACKET PO SCH ×3 (08:32→17:46)
[2020-12-17] MEDS: ACETAMINOPHEN 325 MG TABLET PO PRN ×2 (08:54→15:08)
[2020-12-17] MEDS: FLUTICASONE/VILANTEROL 1 EACH BLST.W.DEV INH SCH (09:00)
--- NOTE | 2020-12-17 09:26 | NUR ---
elizabet. ABG results sent to Dr Xiong - pending follow up orders
[2020-12-17] MEDS ORDERED: SODIUM POLYSTYRENE SULFONATE 15 G/60 ML LIQUID UDC NG ONE (10:00)
[2020-12-17] MEDS ORDERED: FUROSEMIDE 40 MG/4 ML VIAL IV ONE (10:00)
--- NOTE | 2020-12-17 11:35 | NUR ---
PT RECEIVED ORALLY INTUBATED WITH A SIZE 7.5 ETT SECURED WITH ANCHOR-FAST APPROX. 25CM AT THE LIP. VENT PARAMETERS AND ALARMS CHECKED, ALARMS ARE AUDIBLE. PT IS CURRENTLY ON SETTINGS OF A/C 28, VT 500, 100% FIO2, PEEP +10. PT IS TOLERATING VENT SETTINGS WELL, SUCTION PRN. VENT PLUGGED INTO RED OUTLET. WILL CONTINUE TO MONITOR.
[2020-12-17] MEDS ORDERED: diphenhydrAMINE 50 MG/1 ML VIAL IV ONE (14:00)
[2020-12-17] MEDS: MORPHINE SULFATE 2 MG/1 ML DISP.SYRIN IV PRN (15:10)
--- NOTE | 2020-12-17 16:15 | NUR ---
Initial temp readngsone today confirmed by electronic thermometer - confirming temp a dot readings - pt now feeling much warmer - rectal temp noted at 104.5 - cooling measures begun - pt recently given tylenol per question of discomfort / Ice pillows to axillary areas bilaterally - head - and groin with cooling blanket placed under pt - rectal temp on continuous monitoring to detetrmine effect of interventions - call placed to [facility] - up date provided - new orders received - lab requested to attend - close supportive measures continue with cooling meaasures
--- NOTE | 2020-12-17 17:35 | NUR ---
Lakesha COLLECTOR OF INTERNAL REVENUE - following up - new orders received - pt continues restful with rectal temp decreasing
--- NOTE | 2020-12-17 18:30 | NUR ---
cooling measures ended with temp becoming normalized - all sites same - comfort measures remain with close observation
[2020-12-17 18:55] LABS: COCCIDIOIDES CF SERUM 1:2 High
[2020-12-17 18:56] LABS: CRYPTOCOCCUS AB, SERUM Negative
--- NOTE | 2020-12-17 20:00 | NUR ---
rounds made patient orally intubated and on vent ac rate 28/500/100/28 ett 7.5 /25 lip line . right nare ngt Glucerna 1.2 at 20 ml/hour . right midline Diprivan drip .neosynephrine drip see spread sheet follow protocol .f/c to bsd .
[2020-12-17] MEDS: TEMAZEPAM 15 MG CAPSULE PO SCH (21:00)
[2020-12-17] MEDS ORDERED: DOXYCYCLINE HYCLATE IV 100 MG in IV DEXTROSE 5% 100 ML IV SCH (21:00)
[2020-12-17] MEDS: DOXYCYCLINE HYCLATE IV 100 MG in IV DEXTROSE 5% 100 ML IV SCH (21:01)
--- NOTE | 2020-12-17 22:00 | NUR ---
placed air low mattress ,with another RN and with respiratory therapist help .
--- NOTE | 2020-12-17 22:15 | NUR ---
bp low 65/50 hr 78 , increase norsynephrine drip and follow pressor protocol see spreadsheet .
--- NOTE | 2020-12-17 23:00 | NUR ---
patient too sedated reduced propofol drip to 70 mg/kg/min . to follow sedation vacation protocol .
--- NOTE | 2020-12-17 23:36 | NUR ---
PATIENT ON CONT [place] VENT WITH 7.5 ET/TUBE IN PLACE, LIP LINE 25CM, WITH CURRENT VENT SETTINGS, A/C 28, 500ML, PEEP 10, FIO2 @ 100% , PT WITH MOSTLY CONTROLLED VENTILATION, PT SEDATED , SUCTION VERY LIGHT PALE YELL TINGE SECRETIONS, AND SUCTION MOUTH WITH YANKAUER, TOLL WELL, ALL VENT ALARMS GOOD, NO VENT CHANGES MADE, CHANGE HME, VENT PLUGGED INTO RED WALL OUT. Barbara EDWARDS ERCP Addendum: 12/17/20 at 2338 by DELVIN EDWARDS RT Amended: Links added.
[2020-12-18] VITALS (89 sets, daily range): BP systolic 74–159; BP diastolic 49–91
[2020-12-18] MEDS: BLOOD SUGAR DIAGNOSTIC 1 EACH STRIP VI SCH ×4 (00:53→18:32)
[2020-12-18] MEDS: INSULIN REGULAR, HUMAN 300 UNIT/3 ML VIAL SQ PRN (00:57)
[2020-12-18] MEDS: PROPOFOL 100 ML IV PRN ×7 (01:41→21:22)
[2020-12-18] MEDS: PHENYLEPHRINE IV 50 MG in IV NORMAL SALINE 245 ML IV PRN ×4 (02:19→19:19)
[2020-12-18] MEDS: MEROPENEM 0.5 G in IV NORMAL SALINE 50 ML IV SCH ×3 (04:19→20:46)
[2020-12-18 05:04] LABS: MEAN CORPUSCULAR VOLUME 97.9 fL (73.0-96.2)
[2020-12-18 05:06] LABS: HEMATOCRIT 55.1 % (36.7-47.1); MEAN CORPUSCULAR HEMOGLOBIN 32.4 uug (23.8-33.4); PLATELET COUNT (AUTO) 176 K/uL (152-348)
[2020-12-18 05:09] LABS: CREATININE 1.6 mg/dL (0.6-1.3); POTASSIUM 3.4 mmol/L (3.5-5.1)
[2020-12-18 05:14] LABS: MAGNESIUM 2.7 mg/dL (1.8-2.4); PHOSPHOROUS 4.2 mg/dL (2.5-4.9)
[2020-12-18] MEDS: DEXAMETHASONE SOD PHOSPHATE 10 MG INJ IV SCH ×3 (05:18→21:20)
[2020-12-18] MEDS: INSULIN REGULAR, HUMAN 300 UNITS/3 ML VIAL SQ SCH ×3 (05:26→18:35)
--- NOTE | 2020-12-18 05:30 | NUR ---
AM CARE DONE,PATIENT HAD ANOTHER BM . CHANGED SOILED LINENS AND GOWN .
[2020-12-18 06:33] LABS: BAND % (MANUAL) 5 % (0-10); LYMPHOCYTES % (MANUAL) 2 % (20-40); MONOCYTES % (MANUAL) 4 % (2-10); NEUTROPHILS % (MANUAL) 89 % (42-75)
[2020-12-18] MEDS ORDERED: VASOPRESSIN 40 UNIT in IV NORMAL SALINE 40 ML IV PRN (07:15)
[2020-12-18 08:27] LABS: ABG BASE EXCESS 9.4 mmol/L; ABG HCO3 39.5 mmol/L; ABG PCO2 73.6 mmHg (35.0-45.0); ABG PH 7.348 (7.350-7.450); ABG PO2 83.5 mmHg (75.0-100.0); ABG SITE RIGHT RADIAL; ABG TOTAL HEMOGLOBIN 19.2 G/dL (13.5-18.0); MetHb 0.5 % (0.0-1.5); O2Hb 95.8 % (94.0-97.0); VENT MODE VENT - A/C; VT, ABG 500 mL
[2020-12-18] MEDS: FLUTICASONE/VILANTEROL 1 EACH BLST.W.DEV INH SCH (09:00)
[2020-12-18] MEDS: DESCOVY 200-25MG TABLET GT SCH (09:21)
[2020-12-18] MEDS: CHOLECALCIFEROL 1,000 UNIT TABLET PO SCH (09:22)
[2020-12-18] MEDS: [UNRECOGNIZED DRUG - OTHER] GT SCH (09:22)
[2020-12-18] MEDS: PREZCOBIX GT SCH (09:22)
[2020-12-18] MEDS: FINASTERIDE 5 MG TABLET PO SCH (09:23)
[2020-12-18] MEDS: ASCORBIC ACID 500 MG TABLET PO SCH ×2 (09:23→20:47)
[2020-12-18] MEDS: ASPIRIN 81 MG TAB.CHEW PO SCH (09:23)
[2020-12-18] MEDS: FAMOTIDINE 20 MG TABLET NG SCH (09:23)
[2020-12-18] MEDS: FLUCONAZOLE 100 MG TABLET PO SCH (09:23)
[2020-12-18] MEDS: ZINC SULFATE 220 MG CAPSULE PO SCH ×3 (09:23→16:59)
[2020-12-18] MEDS: ENOXAPARIN SODIUM 80 MG/0.8 ML DISP.SYRIN SQ SCH ×2 (09:27→20:54)
[2020-12-18] MEDS: NUTRISOURCE FIBER 4 GM PACKET PO SCH ×3 (09:28→17:00)
[2020-12-18] MEDS: INSULIN GLARGINE,HUM 300 UNITS/3 ML CARTRIDGE SQ SCH ×2 (10:09→21:19)
[2020-12-18] MEDS: DOXYCYCLINE HYCLATE IV 100 MG in IV DEXTROSE 5% 100 ML IV SCH ×2 (10:26→20:46)
[2020-12-18] MEDS ORDERED: POTASSIUM CHLORIDE 50 ML IV SCH (11:15)
[2020-12-18] MEDS: ACETAMINOPHEN 325 MG TABLET PO PRN ×2 (17:06→21:09)
[2020-12-18] MEDS ORDERED: NOREPINEPHRINE BITARTRATE 8 MG in IV NORMAL SALINE 242 ML IV PRN (18:00)
--- NOTE | 2020-12-18 19:50 | NUR ---
rounds made patient in bed orally intubated vent settings rate 28 /tv500 fio2 100 peep 10. suction patient via the ett minimal blood tinged secretions orally brownish moderate.ngt with Glucerna 1.2 at 20 ml/hr ,patent . f/c to bsd . right midline with Diprivan drip ,and neosynephrine drip for bp support .SR 100 with PVCS .
--- NOTE | 2020-12-18 20:00 | NUR ---
temp rectally 101.7,Tylenol prn given via the ngt ,placed patient on cooling blanket . ice packs applied to the forehead and bilateral upper armpits and bilateral groin .
[2020-12-18] MEDS: TEMAZEPAM 15 MG CAPSULE PO SCH (20:46)
--- NOTE | 2020-12-18 22:00 | NUR ---
temp improved 100.F rectally .
[2020-12-19] VITALS (95 sets, daily range): BP systolic 97–139; BP diastolic 57–83
[2020-12-19] MEDS: PROPOFOL 100 ML IV PRN ×9 (00:15→22:55)
--- NOTE | 2020-12-19 00:33 | NUR ---
PATIENT ON CONT [place] VENT WITH 7.5 ET/TUBE IN PLAC3E AND SECURED, WITH ANCHOR FAST IN PLACE AND MOVE Q2 HOURS , WITH CURRENT VENT SETTINGS, A/C 28, 500ML, 100%, PEEP 10, PT WITH MOSTLY CONTROLLED VENTILATION AND SEDATED ,NO VENT CHANGES MADE, SLIGHT BLOODY STREAK SECRETIONS, NO VENT CHANGES MADE, ALL VENT ALARMS GOOD . CHANGE ROXANNE AND RUBEN EDWARDS RCP Addendum: 12/19/20 at 0035 by DELVIN EDWARDS RT Amended: Links added.
[2020-12-19] MEDS: BLOOD SUGAR DIAGNOSTIC 1 EACH STRIP VI SCH ×5 (00:43→23:34)
[2020-12-19] MEDS: INSULIN REGULAR, HUMAN 300 UNITS/3 ML VIAL SQ SCH ×5 (00:44→23:34)
[2020-12-19] MEDS: MEROPENEM 0.5 G in IV NORMAL SALINE 50 ML IV SCH (05:20)
[2020-12-19] MEDS: DEXAMETHASONE SOD PHOSPHATE 10 MG INJ IV SCH ×3 (05:21→21:25)
[2020-12-19] MEDS: PHENYLEPHRINE IV 50 MG in IV NORMAL SALINE 245 ML IV PRN ×2 (05:55→16:29)
[2020-12-19 06:15] LABS: HEMATOCRIT 50.8 % (36.7-47.1); MEAN CORPUSCULAR HEMOGLOBIN 32.3 uug (23.8-33.4); MEAN CORPUSCULAR VOLUME 98.8 fL (73.0-96.2); PLATELET COUNT (AUTO) 144 K/uL (152-348)
[2020-12-19 06:23] LABS: CREATININE 1.1 mg/dL (0.6-1.3); POTASSIUM 4.4 mmol/L (3.5-5.1)
--- NOTE | 2020-12-19 07:15 | NUR ---
Received pt. on ventilator A/C 28, TV 500 and FIO2 100% patient ETT 7.5 28LL saturation of 92%. patient tachypneic with RR in the mid 30's with use of abdominal muscles. Neuro-puente adequately sedated on propofol with gag, and cough reflex present. Cardiac puente with sbp been supported by vasopressors, in the 129/75 with tachycardia in the 110-120's patient febrile and and on cooling blanket. Serna to gravity and NG patent placement verified with feeding to be resumed. No skin breakdown will continue with care plan.
[2020-12-19 08:30] LABS: ABG BASE EXCESS 11.2 mmol/L; ABG HCO3 44.5 mmol/L; ABG PCO2 103.6 mmHg (35.0-45.0); ABG PH 7.251 (7.350-7.450); ABG PO2 97.6 mmHg (75.0-100.0); ABG SITE RIGHT RADIAL; ABG TOTAL HEMOGLOBIN 17.6 G/dL (13.5-18.0); COHb 1.1 % (0.5-1.5); MetHb 0.6 % (0.0-1.5); O2Hb 95.8 % (94.0-97.0); VENT MODE VENT - A/C; VT, ABG 500 mL
--- NOTE | 2020-12-19 08:36 | NUR ---
DR. Mabry pulmonary services, in to follow up on pt. And vent settings changed to A/C 30, Tv. 525 this post morning ABG results reviewed by Dr. Mabry. Addendum: 12/19/20 at 1112 by LAN OROSCO RN FIO2 85%.
[2020-12-19] MEDS: MORPHINE SULFATE 2 MG/1 ML DISP.SYRIN IV PRN (08:47)
[2020-12-19] MEDS: FLUTICASONE/VILANTEROL 1 EACH BLST.W.DEV INH SCH (08:50)
[2020-12-19] MEDS: DESCOVY 200-25MG TABLET GT SCH (08:50)
[2020-12-19] MEDS: PREZCOBIX GT SCH (08:50)
[2020-12-19] MEDS: FINASTERIDE 5 MG TABLET PO SCH (08:52)
[2020-12-19] MEDS: ZINC SULFATE 220 MG CAPSULE PO SCH ×3 (08:53→16:57)
[2020-12-19] MEDS: FLUCONAZOLE 100 MG TABLET PO SCH (08:53)
[2020-12-19] MEDS: CHOLECALCIFEROL 1,000 UNIT TABLET PO SCH (08:53)
[2020-12-19] MEDS: ASCORBIC ACID 500 MG TABLET PO SCH ×2 (08:53→21:25)
[2020-12-19] MEDS: ASPIRIN 81 MG TAB.CHEW PO SCH (08:53)
[2020-12-19] MEDS: NUTRISOURCE FIBER 4 GM PACKET PO SCH ×3 (08:54→16:58)
[2020-12-19] MEDS: ENOXAPARIN SODIUM 80 MG/0.8 ML DISP.SYRIN SQ SCH ×2 (08:54→21:26)
[2020-12-19] MEDS: FAMOTIDINE 20 MG TABLET NG SCH (08:55)
[2020-12-19] MEDS: GLUCERNA 1.2 1000ML LIQUID GT SCH (08:56)
[2020-12-19] MEDS: DOXYCYCLINE HYCLATE IV 100 MG in IV DEXTROSE 5% 100 ML IV SCH ×2 (08:56→20:21)
[2020-12-19] MEDS: INSULIN GLARGINE,HUM 300 UNITS/3 ML CARTRIDGE SQ SCH ×2 (09:02→21:37)
[2020-12-19] MEDS: [UNRECOGNIZED DRUG - OTHER] GT SCH (09:12)
[2020-12-19] MEDS: MEROPENEM 1 G in IV NORMAL SALINE 100 ML IV SCH ×2 (12:06→20:19)
[2020-12-19] MEDS ORDERED: diphenhydrAMINE 50 MG/1 ML VIAL IV ONE (12:45)
[2020-12-19] MEDS ORDERED: ACETAMINOPHEN 325 MG TABLET PO ONE (12:45)
--- NOTE | 2020-12-19 19:09 | NUR ---
Left on ventilator A/C 30, TV 525 and FIO2 85% patient ETT 7.5 28LL saturation above 94%. No tachypnea slight use of abdominal muscles. Neuro-puente adequately sedated on propofol with gag, and cough reflex present. Cardiac puente with sbp above the 90's been supported by vasopressors, in the 129/75 with sinus rhythm patient afebrile. Serna to gravity and NG patent placement verified with feeding to be resumed. No skin breakdown will continue with care plan. Tolerating feeding with no residuals. Will continue with care plan.
[2020-12-19] MEDS: TEMAZEPAM 15 MG CAPSULE PO SCH (19:57)
[2020-12-19] MEDS: IV NORMAL SALINE 250 ML IV PRN (21:53)
--- NOTE | 2020-12-19 23:21 | NUR ---
PATIENT ON CONT [place] VENT WITH 7.5 ET/TUBE IN PLACE AND SECURED, WITH ANCHOR FAST, ROTATE Q2 HOURS, WITH CURRENT VENT SETTINGS ,A/C 30, VT 525 , PEEP 10, FIO2 @ 85%, MOSTLY WITH CONTROLLED VENTILATION, PT IS SEDATED, NO VENT CHANGES MADE, ALL VENT ALARMS GOOD, SUCTIONED SLIGHT PINKISH TINGE SECRETIONS, ORAL CARE, CHANGE HME, VENT PLUGGED INTO RED WALL OUT, AMBU BAG AT BEDSIDE .Barbara EDWARDS RCP Addendum: 12/19/20 at 5134 by DELVIN EDWARDS RT Amended: Links added.
[2020-12-20] VITALS (47 sets, daily range): BP systolic 94–137; BP diastolic 47–87
[2020-12-20] MEDS: ACETAMINOPHEN 325 MG TABLET PO PRN ×3 (00:04→22:30)
[2020-12-20] MEDS ORDERED: diphenhydrAMINE 50 MG/1 ML VIAL ONE (02:54)
[2020-12-20] MEDS: PROPOFOL 100 ML IV PRN ×5 (03:06→22:10)
[2020-12-20] MEDS: IV NORMAL SALINE 250 ML IV PRN (03:25)
--- NOTE | 2020-12-20 03:50 | NUR ---
Pt received Cryoprecipitate as ordered; premedicated with Tylenol & Benadryl / eMar. Paperwork in lab section of chart.
[2020-12-20] MEDS: MEROPENEM 1 G in IV NORMAL SALINE 100 ML IV SCH ×3 (04:27→20:25)
[2020-12-20 05:04] LABS: HEMATOCRIT 48.8 % (36.7-47.1); MEAN CORPUSCULAR HEMOGLOBIN 32.2 uug (23.8-33.4); MEAN CORPUSCULAR VOLUME 98.4 fL (73.0-96.2); PLATELET COUNT (AUTO) 101 K/uL (152-348)
[2020-12-20] MEDS: DEXAMETHASONE SOD PHOSPHATE 10 MG INJ IV SCH ×3 (05:20→21:51)
[2020-12-20 05:23] LABS: POTASSIUM 5.4 mmol/L (3.5-5.1)
[2020-12-20] MEDS: BLOOD SUGAR DIAGNOSTIC 1 EACH STRIP VI SCH ×4 (05:34→23:08)
[2020-12-20] MEDS: INSULIN REGULAR, HUMAN 300 UNITS/3 ML VIAL SQ SCH ×4 (05:36→23:09)
[2020-12-20 05:48] LABS: MAGNESIUM 2.6 mg/dL (1.8-2.4); PHOSPHOROUS 2.7 mg/dL (2.5-4.9)
[2020-12-20] MEDS ORDERED: AMIODARONE HCL IV 150 MG in IV DEXTROSE 5% 100 ML IV ONE (06:30)
[2020-12-20] MEDS: AMIODARONE HCL IV 450 MG in IV DEXTROSE 5% 250 ML IV PRN ×2 (06:45→13:46)
[2020-12-20] MEDS ORDERED: SODIUM POLYSTYRENE SULFONATE 15 G/60 ML LIQUID UDC NG ONE (07:00)
--- NOTE | 2020-12-20 07:15 | NUR ---
Received pt. on ventilator A/C 30, TV 525 and FIO2 85% PPE +10 ETT 7.5 25LL saturation of 95%. no tachypnea with use of abdominal muscles. Neuro-puente adequately sedated on propofol now down to 40mcg/kg/min, with gag, and cough reflex present. Cardiac puente with pt. remains in uncontrolled A-fib in the 115-120's now on amiodarone drip and off neosynephrine sbp in the 120's. patient afebrile. Serna to gravity and NG patent placement verified with feeding to be resumed at ordered rate with H2O flushes of 200 Q4H. IV lines patent. No skin breakdown will continue with care plan.
--- NOTE | 2020-12-20 07:50 | NUR ---
Patient seen by pulmonary services, Dr. Xiong report given and informed of suggestion from Pharmacy to switch propofol to precedex to address triglyceride level as orders we'll continue with propofol for now.
[2020-12-20 08:08] LABS: ABG BASE EXCESS 9.6 mmol/L; ABG HCO3 38.6 mmol/L; ABG PCO2 69.7 mmHg (35.0-45.0); ABG PH 7.361 (7.350-7.450); ABG SITE LEFT BRACHIAL; ABG TOTAL HEMOGLOBIN 16.6 G/dL (13.5-18.0); COHb 1.7 % (0.5-1.5); MetHb 0.5 % (0.0-1.5); O2Hb 96.1 % (94.0-97.0); VENT MODE VENT - A/C; VT, ABG 525 mL
[2020-12-20] MEDS: [UNRECOGNIZED DRUG - OTHER] GT SCH (08:15)
[2020-12-20] MEDS: DESCOVY 200-25MG TABLET GT SCH (08:15)
[2020-12-20] MEDS: FLUTICASONE/VILANTEROL 1 EACH BLST.W.DEV INH SCH (08:15)
[2020-12-20] MEDS: PREZCOBIX GT SCH (08:15)
[2020-12-20] MEDS: DOXYCYCLINE HYCLATE IV 100 MG in IV DEXTROSE 5% 100 ML IV SCH ×2 (08:16→20:26)
[2020-12-20] MEDS: ASPIRIN 81 MG TAB.CHEW PO SCH (08:23)
[2020-12-20] MEDS: FINASTERIDE 5 MG TABLET PO SCH (08:24)
[2020-12-20] MEDS: ASCORBIC ACID 500 MG TABLET PO SCH ×2 (08:24→20:26)
[2020-12-20] MEDS: FLUCONAZOLE 100 MG TABLET PO SCH (08:24)
[2020-12-20] MEDS: FAMOTIDINE 20 MG TABLET NG SCH (08:24)
[2020-12-20] MEDS: ZINC SULFATE 220 MG CAPSULE PO SCH ×3 (08:24→17:05)
[2020-12-20] MEDS: CHOLECALCIFEROL 1,000 UNIT TABLET PO SCH (08:24)
[2020-12-20] MEDS: NUTRISOURCE FIBER 4 GM PACKET PO SCH ×3 (08:25→17:04)
[2020-12-20] MEDS: ENOXAPARIN SODIUM 80 MG/0.8 ML DISP.SYRIN SQ SCH ×3 (08:33→21:00)
[2020-12-20] MEDS: INSULIN GLARGINE,HUM 300 UNITS/3 ML CARTRIDGE SQ SCH ×2 (08:36→20:27)
[2020-12-20] MEDS: GLUCERNA 1.2 1000ML LIQUID GT SCH (08:44)
--- NOTE | 2020-12-20 11:00 | NUR ---
FIO2 down to 80%. pt. tolerating it well.
--- NOTE | 2020-12-20 15:06 | NUR ---
FIO@ back to 85% pt's saturation 92%
--- NOTE | 2020-12-20 19:00 | NUR ---
Received patient lying in bed on Trendelenburg position, asleep, resting comfortably; A/Ox3, disoriented to place, reality orientation provided during assessment. Denies pain. No signs of acute distress noted. Checked IV site patent and flushed. No infiltration noted. Serna catheter draining well to gravity. Call light within reach. Bed at lowest position, brakes on, siderails x3. Comfort care provided. Will continue to monitor. Addendum: 12/20/20 at 2129 by Lucie Calix RN Wrong patient
--- NOTE | 2020-12-20 19:16 | NUR ---
Left pt. on ventilator A/C 30, TV 525 and FIO2 85% PPE +10 ETT 7.5 25LL saturation of 95%. no tachypnea with use of abdominal muscles. Neuro-puente adequately sedated on propofol running at 45mcg/kg/min, with gag, and cough reflex present. Cardiac puente with pt. on sinus rhythm in the 80-90's with amiodarone drip running per protocol, off pressors for the shift with sbp within desired limits. Serna to gravity and NG in place with glucerna running no residuals and with H2O flushes of 200 Q4H. IV lines patent. No skin breakdown will continue with care plan.
--- NOTE | 2020-12-20 19:30 | NUR ---
Report received. Patient on COVID-19 isolation, orally intubated and to mechanical ventilator with settings: AC=30, FIO2=85%, LZ=972 ml and PEEP=10 cm. O2 saturations above 94%. On continuous Diprivan drip at 45 mcg/kg/min. via JEFFREY midline. Also on Amiodarone drip at 0.5mg/min. quality assurance monitor body: SR rate 80's. BPs stable. Addendum: 12/20/20 at 2051 by CHAYA REED RN Amended: Links added. Addendum: 12/20/20 at 2052 by CHAYA REED RN Amended: Links added.
--- NOTE | 2020-12-20 19:45 | NUR ---
Dry wound noted at right medial malleolus straight cut with scab noted; no discharge noted; picture taken placed at chart. Asked patient where she got it from, patient stated "A dish broke." Addendum: 12/20/20 at 2129 by Lucie Calix RN Wrong patient
--- NOTE | 2020-12-20 20:00 | NUR ---
Seen by Riki HAWKINS; aware of patient's condition. Requested to change midline and send tip for C/S. Addendum: 12/20/20 at 2052 by CHAYA REED RN Amended: Links added.
--- NOTE | 2020-12-20 20:45 | NUR ---
Checked for NGT residuals= 50ml with BRB gastric aspirant mixed with feedings. Patient on Lovenox Q12H. Dr. Santiago notified. Addendum: 12/20/20 at 2047 by CHAYA REED RN Amended: Links added. Addendum: 12/20/20 at 2051 by CHAYA REED RN Amended: Links added. Addendum: 12/20/20 at 2052 by CHAYA TAECHARATKIJ RN Amended: Links added.
[2020-12-20] MEDS: MICAFUNGIN SODIUM 100 MG in IV NORMAL SALINE 100 ML IV SCH (20:56)
--- NOTE | 2020-12-20 21:00 | NUR ---
Patient asked, "When can I eat?" Contacted Dr. Conrad to advance diet. Awaiting for callback. Addendum: 12/20/20 at 2129 by Lucie Calix RN Wrong patient.
--- NOTE | 2020-12-20 21:01 | NUR ---
Message left to BLESSING DPOA # [phone] re: PICC line insertion consent.
--- NOTE | 2020-12-20 21:05 | NUR ---
Cleo Isaac called back, consent for PICC line insertion obtained.
--- NOTE | 2020-12-20 21:15 | NUR ---
Station Examiner Sara informed of PICC line insertion.
[2020-12-20] MEDS: LORAZEPAM 2 MG/1 ML VIAL IV PRN (22:09)
--- NOTE | 2020-12-20 23:00 | NUR ---
Patient had a large liquid brown red stools; Bath given; skin care done. Dr. Santiago notified. Order for flexi seal and stool OB received. Specimen sent to lab. Flexi seal inserted without problems; with black tarry stools. Addendum: 12/22/20 at 0401 by CHAYA REED RN Amended: Links added.
[2020-12-20 23:37] LABS: *OCCULT BLOOD STOOL POSITIVE (NEGATIVE)
[2020-12-21] VITALS (24 sets, daily range): BP systolic 97–129; BP diastolic 58–85
--- NOTE | 2020-12-21 | NUR ---
NG residual of 50cc, NG feeding still on hold.
--- NOTE | 2020-12-21 02:00 | NUR ---
No NG residual noted, NG feeding restarted, with water flushes given.
[2020-12-21] MEDS: AMIODARONE HCL IV 450 MG in IV DEXTROSE 5% 250 ML IV PRN (02:25)
[2020-12-21] MEDS: PROPOFOL 100 ML IV PRN ×4 (02:48→20:11)
[2020-12-21] MEDS: MEROPENEM 1 G in IV NORMAL SALINE 100 ML IV SCH ×3 (04:24→20:47)
[2020-12-21] MEDS: BLOOD SUGAR DIAGNOSTIC 1 EACH STRIP VI SCH ×3 (05:11→18:53)
[2020-12-21] MEDS: INSULIN REGULAR, HUMAN 300 UNITS/3 ML VIAL SQ SCH ×3 (05:13→18:54)
[2020-12-21 05:22] LABS: HEMATOCRIT 44.3 % (36.7-47.1); MEAN CORPUSCULAR HEMOGLOBIN 32.2 uug (23.8-33.4); MEAN CORPUSCULAR VOLUME 98.9 fL (73.0-96.2); PLATELET COUNT (AUTO) 107 K/uL (152-348)
[2020-12-21] MEDS: DEXAMETHASONE SOD PHOSPHATE 10 MG INJ IV SCH ×3 (05:27→21:02)
[2020-12-21 05:32] LABS: CREATININE 0.8 mg/dL (0.6-1.3); POTASSIUM 4.5 mmol/L (3.5-5.1)
[2020-12-21 05:38] LABS: MAGNESIUM 2.6 mg/dL (1.8-2.4); PHOSPHOROUS 2.5 mg/dL (2.5-4.9); TRIGLYCERIDES 366 MG/DL (30-150)
[2020-12-21 06:07] LABS: ABG BASE EXCESS 13.2 mmol/L; ABG HCO3 41.2 mmol/L; ABG PCO2 66.2 mmHg (35.0-45.0); ABG PH 7.412 (7.350-7.450); ABG PO2 117.7 mmHg (75.0-100.0); ABG SITE LEFT RADIAL; ABG TOTAL HEMOGLOBIN 15.3 G/dL (13.5-18.0); COHb 1.3 % (0.5-1.5); MetHb 0.4 % (0.0-1.5); O2Hb 97.1 % (94.0-97.0); VENT MODE VENT - A/C; VT, ABG 525 mL
[2020-12-21] MEDS: IV NORMAL SALINE 250 ML IV PRN (06:40)
--- NOTE | 2020-12-21 07:00 | NUR ---
Endorsed to AM shift RN. Patient is sedated with Propofol 45mcg/kg/min, ET 7.5, 25"cm at lip level with vent settings of AC 30, TV 525, FiO2 85%, PEEP 10. NG tube at Left nare with TF Glucerna 1.2 @ 20mls/hr x 22 hr, H20 flushes 200ml q4; SR 90s on the monitor, BP 129/71, O2 sat 95%; JEFFREY ML with Amiodarone drip @ 0.5mg/min, RFA with NS @ TKO; reddy catheter draining well to gravity, UO 800ml drained; with flexiseal; on covid isolation. Will closely monitor.
[2020-12-21] MEDS: FLUTICASONE/VILANTEROL 1 EACH BLST.W.DEV INH SCH (08:11)
[2020-12-21] MEDS: DOXYCYCLINE HYCLATE IV 100 MG in IV DEXTROSE 5% 100 ML IV SCH ×2 (08:19→20:48)
[2020-12-21] MEDS: ZINC SULFATE 220 MG CAPSULE PO SCH ×3 (08:19→17:42)
[2020-12-21] MEDS: AMIODARONE HCL 200 MG TABLET PO SCH ×2 (08:20→20:53)
[2020-12-21] MEDS: FAMOTIDINE 20 MG TABLET NG SCH ×2 (08:20→17:53)
[2020-12-21] MEDS: [UNRECOGNIZED DRUG - OTHER] GT SCH (08:20)
[2020-12-21] MEDS: FINASTERIDE 5 MG TABLET PO SCH (08:20)
[2020-12-21] MEDS: ASCORBIC ACID 500 MG TABLET PO SCH ×2 (08:20→20:53)
[2020-12-21] MEDS: PREZCOBIX GT SCH (08:20)
[2020-12-21] MEDS: DESCOVY 200-25MG TABLET GT SCH (08:21)
[2020-12-21] MEDS: NUTRISOURCE FIBER 4 GM PACKET PO SCH ×3 (08:23→17:53)
[2020-12-21] MEDS: ENOXAPARIN SODIUM 80 MG/0.8 ML DISP.SYRIN SQ SCH ×2 (08:24→21:00)
[2020-12-21] MEDS: INSULIN GLARGINE,HUM 300 UNITS/3 ML CARTRIDGE SQ SCH ×2 (08:24→21:00)
[2020-12-21] MEDS: CHOLECALCIFEROL 1,000 UNIT TABLET PO SCH (08:37)
[2020-12-21] MEDS ORDERED: GLUCERNA 1.2 1000ML LIQUID GT PRN (14:15)
--- NOTE | 2020-12-21 15:03 | NUR ---
Dr. Thomas in the unit rounding. increased water flushes to 250ml q4 flushes for sodium level.
--- NOTE | 2020-12-21 15:41 | NUR ---
Dr. Valle called for report. plan to increase pepcid to bid and will order cryo 2 units for today
[2020-12-21] MEDS ORDERED: ACETAMINOPHEN 325 MG TABLET PO PRN (15:45)
[2020-12-21] MEDS ORDERED: diphenhydrAMINE 50 MG/1 ML VIAL IV PRN (15:45)
[2020-12-21] MEDS: PROTEIN SUPPLEMENT (PROSTAT) 30 ML LIQUID GT SCH (17:53)
--- NOTE | 2020-12-21 19:00 | NUR ---
Received patient from previous shift. Patient is sedated with Propofol drip @ 45mcg/kg/min; ETT 7.5 25cm at lip line with the same vent settings; T=100.8 as per report on cooling mattress, noted to have skin warm, flushed face and upper torso; ST on the monitor, BP 126/72, O2 94%; NG tube at left nare with TF Glucerna 1.2@20mls/hr with 50ml residual brown in color; Tylenol with cold water flush given. IV site RFA and MARY PICC line patent and flushed; reddy catheter draining well to gravity; flexiseal intact with black tarry stool, irrigated with cold water. Will continue to monitor closely.
[2020-12-21] MEDS: LORAZEPAM 2 MG/1 ML VIAL IV PRN (19:24)
--- NOTE | 2020-12-21 20:20 | NUR ---
1 unit of Cryoprecipitate started and verified by 2 staff readiness officer. Vital signs taken.
[2020-12-21] MEDS: MICAFUNGIN SODIUM 100 MG in IV NORMAL SALINE 100 ML IV SCH (20:31)
--- NOTE | 2020-12-21 21:00 | NUR ---
Spoke to Dr. Cates regarding Lovenox dose 2100, order to hold medication. Noted and carried out.
--- NOTE | 2020-12-21 21:20 | NUR ---
Transfusion completed with no signs of reaction.
--- NOTE | 2020-12-21 22:00 | NUR ---
F/U lab for second unit of cryoprecipitate. Spoke to [employer] mentioned "I'll checked on it." Will follow up later.
--- NOTE | 2020-12-21 23:45 | NUR ---
Called lab to f/u of cryoprecipitate again. Per Mike medical laboratory scientist, "will thaw blood product". Will follow up later.
[2020-12-22] VITALS (23 sets, daily range): BP systolic 94–142; BP diastolic 60–88
--- NOTE | 2020-12-22 | NUR ---
Wound photo taken and placed on chart. Patient grimacing while doing oral care.
[2020-12-22] MEDS: BLOOD SUGAR DIAGNOSTIC 1 EACH STRIP VI SCH ×5 (00:48→23:28)
[2020-12-22] MEDS: INSULIN REGULAR, HUMAN 300 UNITS/3 ML VIAL SQ SCH ×5 (00:49→23:31)
[2020-12-22] MEDS: PROPOFOL 100 ML IV PRN ×6 (01:01→23:26)
--- NOTE | 2020-12-22 01:05 | NUR ---
second unit of cryoprecipitate started and verified by 2 staffing consultant and started. Vital signs taken. Will continue to monitor closely.
[2020-12-22] MEDS: IV NORMAL SALINE 250 ML IV PRN (01:26)
--- NOTE | 2020-12-22 02:10 | NUR ---
Cryprecipitate completed with no signs of reaction.
[2020-12-22] MEDS: MEROPENEM 1 G in IV NORMAL SALINE 100 ML IV SCH (04:25)
[2020-12-22] MEDS: DEXAMETHASONE SOD PHOSPHATE 10 MG INJ IV SCH ×3 (05:06→22:06)
[2020-12-22 05:34] LABS: HEMATOCRIT 40.8 % (36.7-47.1); MEAN CORPUSCULAR HEMOGLOBIN 32.1 uug (23.8-33.4); MEAN CORPUSCULAR VOLUME 98.3 fL (73.0-96.2); PLATELET COUNT (AUTO) 79 K/uL (152-348)
[2020-12-22 05:41] LABS: CREATININE 0.8 mg/dL (0.6-1.3); MAGNESIUM 2.5 mg/dL (1.8-2.4); PHOSPHOROUS 2.5 mg/dL (2.5-4.9); POTASSIUM 4.8 mmol/L (3.5-5.1)
[2020-12-22 06:01] LABS: ABG BASE EXCESS 13.9 mmol/L; ABG HCO3 43.1 mmol/L; ABG PCO2 76.7 mmHg (35.0-45.0); ABG PH 7.368 (7.350-7.450); ABG PO2 102.3 mmHg (75.0-100.0); ABG SITE RIGHT BRACHIAL; ABG TOTAL HEMOGLOBIN 14.4 G/dL (13.5-18.0); COHb 1.4 % (0.5-1.5); MetHb 0.3 % (0.0-1.5); O2Hb 96.4 % (94.0-97.0); VENT MODE VENT - A/C; VT, ABG 525 mL
--- NOTE | 2020-12-22 06:12 | NUR ---
Seen and examined by Dr Thomas, report given, with no new order.
--- NOTE | 2020-12-22 06:38 | NUR ---
Patient is continuously sedated with Propofol @45mcg/kg/min; slight facial grimacing to care; SR on the monitor, BP stable, O2 sat 95%; ETT with the same vent settings; T=99.4 on cooling mattress; NG tube with TF Glucerna 1.2 @20mls/hrx22 hr off at 6-8am, with minimal residual; reddy catheter draining well to gravity with an output of 900ml and flexiseal 200ml output brown to greenish in color.
--- NOTE | 2020-12-22 08:26 | NUR ---
hold per sandeep lovenox dose and plt low today.
[2020-12-22] MEDS: DESCOVY 200-25MG TABLET GT SCH (08:38)
[2020-12-22] MEDS: [UNRECOGNIZED DRUG - OTHER] GT SCH (08:39)
[2020-12-22] MEDS: PREZCOBIX GT SCH (08:39)
[2020-12-22] MEDS: ACETAMINOPHEN 325 MG TABLET PO PRN (08:39)
[2020-12-22] MEDS: ASCORBIC ACID 500 MG TABLET PO SCH ×2 (08:39→20:36)
[2020-12-22] MEDS: FINASTERIDE 5 MG TABLET PO SCH (08:42)
[2020-12-22] MEDS: FAMOTIDINE 20 MG TABLET NG SCH ×2 (08:42→17:37)
[2020-12-22] MEDS: AMIODARONE HCL 200 MG TABLET PO SCH ×2 (08:43→20:36)
[2020-12-22] MEDS: FLUTICASONE/VILANTEROL 1 EACH BLST.W.DEV INH SCH (08:43)
[2020-12-22] MEDS: DOXYCYCLINE HYCLATE IV 100 MG in IV DEXTROSE 5% 100 ML IV SCH (08:44)
[2020-12-22] MEDS: NUTRISOURCE FIBER 4 GM PACKET PO SCH ×3 (08:48→17:39)
[2020-12-22] MEDS: ZINC SULFATE 220 MG CAPSULE PO SCH ×3 (08:48→17:38)
[2020-12-22] MEDS: PROTEIN SUPPLEMENT (PROSTAT) 30 ML LIQUID GT SCH ×3 (08:48→17:39)
[2020-12-22] MEDS: ENOXAPARIN SODIUM 80 MG/0.8 ML DISP.SYRIN SQ SCH (08:50)
[2020-12-22] MEDS: INSULIN GLARGINE,HUM 300 UNITS/3 ML CARTRIDGE SQ SCH ×2 (08:50→20:52)
[2020-12-22] MEDS: CHOLECALCIFEROL 1,000 UNIT TABLET PO SCH (12:08)
[2020-12-22 15:04] LABS: BAND % (MANUAL) 3 % (0-10); LYMPHOCYTES % (MANUAL) 1 % (20-40); MONOCYTES % (MANUAL) 4 % (2-10); NEUTROPHILS % (MANUAL) 92 % (42-75)
--- NOTE | 2020-12-22 18:50 | NUR ---
patient beginning to desat to 89-90% on fio2 of 70%. was titrated down throughout the day. Returned patient back up to 80% patient is saturating 93% at time.
--- NOTE | 2020-12-22 19:30 | NUR ---
Report received; care assumed. Patient on COVID-19 isolation, orally intubated and to mechanical ventilator with settings: AC=30, FIO2=80%, AA=[id number] and PEEP=10 cm. O2 saturations above 94%. Continuously sedated with Diprivan drip at 45 mcg/kg/min via MARY PICC line. Respirations 30/min with use of abdominal muscle ? labored. Noted slight facial grimacing to suctioning; weak cough reflex. Scant hernández colored secretions from ETT. 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 Assessment done; see flow sheet for complete details. Turned and repositioned. Flexi seal intact; with green liquid stools. Flexi seal irrigated gently. Skin care provided. Addendum: 12/22/20 at 2105 by CHAYA REED RN Amended: Links added.
[2020-12-22] MEDS: MICAFUNGIN SODIUM 100 MG in IV NORMAL SALINE 100 ML IV SCH (20:28)
--- NOTE | 2020-12-22 23:00 | NUR ---
Received a call from Hansa Syed claims she's the patient's sister and wanted information. Advised of the following: that this RN can't give her any information due to HIPAA rules and to contact BLESSING Isaac patient's DPOA. Will refer to SS as need arises.
[2020-12-23] VITALS (31 sets, daily range): BP systolic 85–137; BP diastolic 50–81
--- NOTE | 2020-12-23 | NUR ---
NGT residuals 100 ml bloody tinged; will hold feedings for now. Will monitor. Addendum: 12/23/20 at 0623 by CHAYA REED RN Amended: Links added. Addendum: 12/23/20 at 0626 by CHAYA REED RN Amended: Links added.
[2020-12-23] MEDS: LORAZEPAM 2 MG/1 ML VIAL IV PRN (01:48)
--- NOTE | 2020-12-23 02:23 | NUR ---
PATIENT ON CONT [place] VENT WITH 7.5 ET/TUBE IN PLACE AND SECURED WITH ANCHOR FAST, MOVE Q2 HOURS, WITH CURRENT VENT SETTINGS, A/C 30, 525ML, PEEP 10, FIO2 80%, TO MAINTAIN SAT ABOVE 94% , SUCTIONED LIGHT PALE YELL TINGE SECRETIONS, WITH ORAL CARE, CHANGE HME, ALL VENT ALARMS GOOD, VENT PLUGGED INTO RED WAL OUT. Barbara EDWARDS RCP Addendum: 12/23/20 at 0226 by DELVIN EDWARDS RT Amended: Links added.
[2020-12-23] MEDS: IV NORMAL SALINE 250 ML IV PRN (02:39)
[2020-12-23] MEDS: PROPOFOL 100 ML IV PRN ×5 (03:02→20:21)
--- NOTE | 2020-12-23 03:50 | NUR ---
O2 sats remain above 94%, RR 30-32/ min with use of abdominal muscle despite Propofol at 45 mcg/kg/min. Medicated with Lafe. BPs stable. No EKG changes. Addendum: 12/23/20 at 0626 by CHAYA REED RN Amended: Links added.
[2020-12-23 05:09] LABS: HEMATOCRIT 43.1 % (36.7-47.1); MEAN CORPUSCULAR HEMOGLOBIN 31.6 uug (23.8-33.4); MEAN CORPUSCULAR VOLUME 99.1 fL (73.0-96.2); PLATELET COUNT (AUTO) 83 K/uL (152-348)
[2020-12-23 05:10] LABS: LACTATE DEHYDROGENASE 807 U/L (85-227)
[2020-12-23] MEDS: DEXAMETHASONE SOD PHOSPHATE 10 MG INJ IV SCH ×3 (05:24→22:00)
[2020-12-23] MEDS: BLOOD SUGAR DIAGNOSTIC 1 EACH STRIP VI SCH ×3 (05:26→18:20)
[2020-12-23] MEDS: INSULIN REGULAR, HUMAN 300 UNITS/3 ML VIAL SQ SCH ×3 (05:29→18:23)
[2020-12-23 05:41] LABS: BILIRUBIN,TOTAL 0.9 mg/dL (0.2-1.0); CREATININE 0.7 mg/dL (0.6-1.3); MAGNESIUM 2.5 mg/dL (1.8-2.4); PHOSPHOROUS 2.9 mg/dL (2.5-4.9); POTASSIUM 5.5 mmol/L (3.5-5.1); TOTAL PROTEIN, SERUM 4.4 g/dL (6.4-8.2)
[2020-12-23] MEDS: ACETAMINOPHEN 325 MG TABLET PO PRN (06:04)
--- NOTE | 2020-12-23 06:32 | NUR ---
Remains on Diprivan drip at 45 mcg/kg/min. O2 sat 94-96% on current vent settings with FIO2=80%. 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 Face and chest flushed; Temp=99.3. NGT feedings still on hold; residuals above 50 ml bloody tinged. Urine dirfid=1960 ml x 12 H. COVID-19 isolation maintained. Abnormal labs: WBC and CO2 called to Katia Bradley NP. Addendum: 12/23/20 at 0641 by CHAYA REED RN Amended: Links added.
--- NOTE | 2020-12-23 07:34 | NUR ---
COntacted Dr. Aguilera about patients continuous presence of black stool with declining Hemoglobin levels. Stated to keep the patient NPO and get consent for EGD.
[2020-12-23] MEDS ORDERED: SODIUM POLYSTYRENE SULFONATE 15 G/60 ML LIQUID UDC PO ONE (07:45)
[2020-12-23] MEDS ORDERED: IV D5W 1000ML 1,000 ML IV ONE (07:45)
--- NOTE | 2020-12-23 08:00 | NUR ---
received change of shift report, pt sedated on diprivan at 45 mcg/hr, pupils reactive to light, arms flaccid generalized edema, NSR on monitor. pt intubated, saturating at 94%, scant secretions white/hernández color. NG tube in left nares, 10cc residual blood tinged, feeding Glucerna 1.2 at 20 stopped pending EGD, pt has fexiseal in place, liquid stools. reddy in place, yellow urine.
[2020-12-23] MEDS: FINASTERIDE 5 MG TABLET PO SCH (08:24)
[2020-12-23] MEDS: ASCORBIC ACID 500 MG TABLET PO SCH ×2 (08:24→21:00)
[2020-12-23] MEDS: AMIODARONE HCL 200 MG TABLET PO SCH ×2 (08:26→21:00)
[2020-12-23] MEDS: FAMOTIDINE 20 MG TABLET NG SCH ×2 (08:26→17:00)
[2020-12-23] MEDS: CHOLECALCIFEROL 1,000 UNIT TABLET PO SCH (08:27)
[2020-12-23] MEDS: ZINC SULFATE 220 MG CAPSULE PO SCH ×3 (08:27→17:00)
[2020-12-23] MEDS: DESCOVY 200-25MG TABLET GT SCH (08:28)
[2020-12-23] MEDS: [UNRECOGNIZED DRUG - OTHER] GT SCH (08:28)
[2020-12-23] MEDS: NUTRISOURCE FIBER 4 GM PACKET PO SCH ×3 (08:29→17:00)
[2020-12-23] MEDS: PROTEIN SUPPLEMENT (PROSTAT) 30 ML LIQUID GT SCH ×3 (08:29→17:00)
[2020-12-23] MEDS: INSULIN GLARGINE,HUM 300 UNITS/3 ML CARTRIDGE SQ SCH ×2 (08:32→21:58)
[2020-12-23] MEDS: FLUTICASONE/VILANTEROL 1 EACH BLST.W.DEV INH SCH (08:32)
[2020-12-23] MEDS: PREZCOBIX GT SCH (08:32)
[2020-12-23 08:44] LABS: ABG BASE EXCESS 11.4 mmol/L; ABG HCO3 41.6 mmol/L; ABG PCO2 83.7 mmHg (35.0-45.0); ABG PH 7.314 (7.350-7.450); ABG PO2 94.8 mmHg (75.0-100.0); ABG SITE RIGHT RADIAL; ABG TOTAL HEMOGLOBIN 14.7 G/dL (13.5-18.0); COHb 1.6 % (0.5-1.5); MetHb 0.3 % (0.0-1.5); O2Hb 95.4 % (94.0-97.0); VENT MODE VENT - A/C; VT, ABG 525 mL
--- NOTE | 2020-12-23 12:32 | NUR ---
Received consent from Patients DPOA Kim for EGD and to add sister Hansa Valadez to contact list for information. [phone]
[2020-12-23 16:45] LABS: BAND % (MANUAL) 6 % (0-10); LYMPHOCYTES % (MANUAL) 1 % (20-40); MONOCYTES % (MANUAL) 2 % (2-10); NEUTROPHILS % (MANUAL) 91 % (42-75)
[2020-12-23] MEDS ORDERED: ACETAMINOPHEN 650 MG SUPP.RECT RC PRN (17:30)
--- NOTE | 2020-12-23 19:05 | NUR ---
Received patient in bed sedated. Patient is currently orally intubated, vent settings AC 30, Vt 525, Fio2 75%, PEEP 10, SAT 95%. Sinus Rhythm on the monitor, BP stable. MARY Picc line running propofol @50mcg/kg/min, D5W @50mL/hr. Flexi seal intact; with green liquid stools. Flexi seal irrigated gently. Skin care provided.
[2020-12-23] MEDS ORDERED: ETOMIDATE 20 MG/10 ML VIAL IV ONE (20:28)
[2020-12-23] MEDS ORDERED: PROPOFOL 200 MG/20 ML BOTTLE IV ONE (20:28)
--- NOTE | 2020-12-23 21:02 | NUR ---
EGD procedure completed by Dr. Aguilera with one clip placed. NPO order, Famotidine order discontinued, new order for Protonix 40mg IV q12h. Awaiting callback from Cardiology as patient has PO order for Amiodarone and this needs to be addressed with the NPO order.
[2020-12-23] MEDS: MICAFUNGIN SODIUM 100 MG in IV NORMAL SALINE 100 ML IV SCH (21:18)
[2020-12-23] MEDS: PANTOPRAZOLE SODIUM 40 MG VIAL IV SCH (21:19)
[2020-12-24] VITALS (35 sets, daily range): BP systolic 85–129; BP diastolic 53–78
[2020-12-24] MEDS: BLOOD SUGAR DIAGNOSTIC 1 EACH STRIP VI SCH ×4 (01:13→20:31)
[2020-12-24] MEDS: INSULIN REGULAR, HUMAN 300 UNITS/3 ML VIAL SQ SCH ×4 (01:13→20:33)
[2020-12-24] MEDS: PROPOFOL 100 ML IV PRN ×5 (01:29→20:16)
[2020-12-24 04:58] LABS: PLATELET COUNT (AUTO) 75 K/uL (152-348)
[2020-12-24 04:59] LABS: HEMATOCRIT 39.6 % (36.7-47.1); MEAN CORPUSCULAR HEMOGLOBIN 31.3 uug (23.8-33.4); MEAN CORPUSCULAR VOLUME 97.2 fL (73.0-96.2)
[2020-12-24 05:09] LABS: CHLORIDE 107 mmol/L (98-107); CREATININE 0.6 mg/dL (0.6-1.3); GLUCOSE 170 mg/dL (74-106); MAGNESIUM 2.1 mg/dL (1.8-2.4); PHOSPHOROUS 2.3 mg/dL (2.5-4.9); POTASSIUM 4.6 mmol/L (3.5-5.1); UREA NITROGEN, BLOOD 39 mg/dL (7-18)
[2020-12-24 05:13] LABS: CARBON DIOXIDE 46 mmol/L (21-32)
[2020-12-24] MEDS: DEXAMETHASONE SOD PHOSPHATE 10 MG INJ IV SCH ×3 (05:59→20:39)
[2020-12-24 06:35] LABS: BAND % (MANUAL) 6 % (0-10); LYMPHOCYTES % (MANUAL) 1 % (20-40); MONOCYTES % (MANUAL) 1 % (2-10); NEUTROPHILS % (MANUAL) 92 % (42-75)
[2020-12-24] MEDS: IV NORMAL SALINE 250 ML IV PRN (06:35)
--- NOTE | 2020-12-24 06:58 | NUR ---
Patient remains orally intubated, vent settings AC 30, Vt 525, Fio2 75%, PEEP 10, SAT 96% currently. Sinus Rhythm on the monitor, BP stable. S/P EGD with stapling x1 on 1cm ulcer that was actively bleeding. NGT was removed during procedure but was replaced this AM in the right nare, placement confirmed by aspiration, auscultation, and x-ray. No noted bleeding noted in gastric contents on aspiration. Propofol remains @50mcg/kg/min, D5W infusion completed. Flexi-seal intact; with black liquid stools.
--- NOTE | 2020-12-24 08:00 | NUR ---
pt orally intubated on a vent, saturating at 94-96%, sedated, on diprivan at 50mcg, pt has generalized edema, NSR on bedside monitor. pt has minimal secretions, white hernández color. pt NPO, with NG tube in the right nares. Serna and flexiseal in place, dark tarry liquid stools. will continue to monitor.
[2020-12-24] MEDS: IV D5W 1000ML 1,000 ML IV PRN (08:12)
[2020-12-24 08:19] LABS: ABG BASE EXCESS 12.7 mmol/L; ABG HCO3 40.5 mmol/L; ABG PCO2 67.3 mmHg (35.0-45.0); ABG PH 7.397 (7.350-7.450); ABG PO2 84.4 mmHg (75.0-100.0); ABG SITE LEFT RADIAL; ABG TOTAL HEMOGLOBIN 13.3 G/dL (13.5-18.0); COHb 1.3 % (0.5-1.5); MetHb 0.4 % (0.0-1.5); VENT MODE VENT - A/C; VT, ABG 525 mL
[2020-12-24] MEDS: ASCORBIC ACID 500 MG TABLET PO SCH ×2 (08:44→20:40)
[2020-12-24] MEDS: CHOLECALCIFEROL 1,000 UNIT TABLET PO SCH (08:44)
[2020-12-24] MEDS: PANTOPRAZOLE SODIUM 40 MG VIAL IV SCH ×2 (08:44→20:45)
[2020-12-24] MEDS: ZINC SULFATE 220 MG CAPSULE PO SCH ×3 (08:45→17:04)
[2020-12-24] MEDS: AMIODARONE HCL 200 MG TABLET PO SCH ×2 (08:45→20:46)
[2020-12-24] MEDS: FINASTERIDE 5 MG TABLET PO SCH (08:45)
[2020-12-24] MEDS: DESCOVY 200-25MG TABLET GT SCH (08:45)
[2020-12-24] MEDS: PREZCOBIX GT SCH (08:45)
[2020-12-24] MEDS: PROTEIN SUPPLEMENT (PROSTAT) 30 ML LIQUID GT SCH ×3 (08:46→17:04)
[2020-12-24] MEDS: [UNRECOGNIZED DRUG - OTHER] GT SCH (08:46)
[2020-12-24] MEDS: NUTRISOURCE FIBER 4 GM PACKET PO SCH ×3 (08:46→17:04)
[2020-12-24] MEDS: FLUTICASONE/VILANTEROL 1 EACH BLST.W.DEV INH SCH (09:00)
[2020-12-24] MEDS: INSULIN GLARGINE,HUM 300 UNITS/3 ML CARTRIDGE SQ SCH ×2 (09:29→20:36)
[2020-12-24] MEDS: LORAZEPAM 2 MG/1 ML VIAL IV PRN (09:41)
[2020-12-24] MEDS ORDERED: MORPHINE SULFATE 2 MG/1 ML DISP.SYRIN IV PRN (14:00)
[2020-12-24] MEDS ORDERED: hydrALAZINE HCL 20 MG/1 ML VIAL IV PRN (14:00)
[2020-12-24] MEDS ORDERED: ONDANSETRON 4 MG/2 ML VIAL IV PRN (14:00)
[2020-12-24] MEDS ORDERED: HYDROCODONE/APAP 5-325MG TABLET PO PRN (14:00)
[2020-12-24] MEDS ORDERED: DEXTROSE 50% 50 ML DISP.SYRIN IV PRN (14:00)
[2020-12-24] MEDS ORDERED: ACETAMINOPHEN 650 MG SUPP.RECT RC PRN (14:00)
[2020-12-24] MEDS ORDERED: LORAZEPAM 2 MG/1 ML VIAL IV PRN (14:00)
[2020-12-24] MEDS: ACETAMINOPHEN 325 MG TABLET PO PRN (14:20)
[2020-12-24] MEDS ORDERED: NEUTRA PHOS PACKET GT ONE (17:00)
[2020-12-24] MEDS: MICAFUNGIN SODIUM 100 MG in IV NORMAL SALINE 100 ML IV SCH (20:42)
[2020-12-25] VITALS (31 sets, daily range): BP systolic 83–131; BP diastolic 50–73
[2020-12-25] MEDS: PROPOFOL 100 ML IV PRN ×3 (00:24→08:17)
[2020-12-25] MEDS: IV NORMAL SALINE 250 ML IV PRN (01:03)
[2020-12-25] MEDS: BLOOD SUGAR DIAGNOSTIC 1 EACH STRIP VI SCH ×4 (02:34→20:38)
[2020-12-25] MEDS: INSULIN REGULAR, HUMAN 300 UNITS/3 ML VIAL SQ SCH ×4 (02:35→20:39)
[2020-12-25 05:08] LABS: MEAN CORPUSCULAR VOLUME 97.9 fL (73.0-96.2); PLATELET COUNT (AUTO) 75 K/uL (152-348)
[2020-12-25 05:10] LABS: HEMATOCRIT 38.3 % (36.7-47.1); MEAN CORPUSCULAR HEMOGLOBIN 32.2 uug (23.8-33.4)
[2020-12-25 05:22] LABS: CREATININE 0.7 mg/dL (0.6-1.3); MAGNESIUM 2.4 mg/dL (1.8-2.4); PHOSPHOROUS 2.8 mg/dL (2.5-4.9); POTASSIUM 4.9 mmol/L (3.5-5.1)
[2020-12-25] MEDS: IV D5W 1000ML 1,000 ML IV PRN (05:23)
[2020-12-25] MEDS: DEXAMETHASONE SOD PHOSPHATE 10 MG INJ IV SCH ×3 (05:24→21:01)
[2020-12-25 06:17] LABS: BAND % (MANUAL) 7 % (0-10); LYMPHOCYTES % (MANUAL) 2 % (20-40); MONOCYTES % (MANUAL) 1 % (2-10); NEUTROPHILS % (MANUAL) 90 % (42-75)
[2020-12-25 07:55] LABS: ABG HCO3 44.4 mmol/L; ABG PCO2 81.3 mmHg (35.0-45.0); ABG PH 7.355 (7.350-7.450); ABG PO2 81.3 mmHg (75.0-100.0); ABG SITE LEFT RADIAL; ABG TOTAL HEMOGLOBIN 13.2 G/dL (13.5-18.0); COHb 1.1 % (0.5-1.5); MetHb 0.4 % (0.0-1.5); O2Hb 94.5 % (94.0-97.0); VENT MODE VENT - A/C30; VT, ABG 525 mL
--- NOTE | 2020-12-25 08:00 | NUR ---
received pt intubated on vent, Fio2 at 80%, pt sedated on Propofol at 60 mcg. pt has generalized edema, pt has minimal secretions, white /hernández color. NG tube in the right nares, glucerna 1.2 at 20ml/hr x22hrs. Serna and flexiseal in place. will continue to monitor.
[2020-12-25] MEDS: ACETAMINOPHEN 325 MG TABLET PO PRN (08:09)
[2020-12-25] MEDS: ASCORBIC ACID 500 MG TABLET PO SCH ×2 (08:11→20:52)
[2020-12-25] MEDS: CHOLECALCIFEROL 1,000 UNIT TABLET PO SCH (08:11)
[2020-12-25] MEDS: FINASTERIDE 5 MG TABLET PO SCH (08:11)
[2020-12-25] MEDS: AMIODARONE HCL 200 MG TABLET PO SCH ×2 (08:11→20:51)
[2020-12-25] MEDS: ZINC SULFATE 220 MG CAPSULE PO SCH ×3 (08:11→17:03)
[2020-12-25] MEDS: PREZCOBIX GT SCH (08:12)
[2020-12-25] MEDS: PANTOPRAZOLE SODIUM 40 MG VIAL IV SCH ×2 (08:12→20:51)
[2020-12-25] MEDS: [UNRECOGNIZED DRUG - OTHER] GT SCH (08:12)
[2020-12-25] MEDS: DESCOVY 200-25MG TABLET GT SCH (08:12)
[2020-12-25] MEDS: INSULIN GLARGINE,HUM 300 UNITS/3 ML CARTRIDGE SQ SCH ×2 (08:14→20:43)
[2020-12-25] MEDS: NUTRISOURCE FIBER 4 GM PACKET PO SCH ×3 (08:15→17:03)
[2020-12-25] MEDS: PROTEIN SUPPLEMENT (PROSTAT) 30 ML LIQUID GT SCH ×3 (08:15→17:03)
[2020-12-25] MEDS: FLUTICASONE/VILANTEROL 1 EACH BLST.W.DEV INH SCH (09:00)
[2020-12-25] MEDS: GLUCERNA 1.2 1000ML LIQUID GT SCH (09:10)
[2020-12-25] MEDS: FENTANYL CITRATE/PF 1,000 MCG in IV NORMAL SALINE 80 ML IV PRN ×2 (10:39→23:34)
[2020-12-25] MEDS: MIDAZOLAM HCL 50 MG in IV NORMAL SALINE 40 ML IV PRN ×2 (10:40→12:06)
--- NOTE | 2020-12-25 14:50 | NUR ---
Patient experiencing bradycardia down to 45 bpm. EKG ordered and sent to Dr. Tanner. No new orders at this time.
--- NOTE | 2020-12-25 16:27 | NUR ---
REC'D PATIENT ON CONT [place] VENT WITH 7.5 ETT @ 25cm LL IN PLACE AND SECURED WITH ANCHOR FAST, TOLERATING CURRENT VENT SETTINGS, A/C 16, 500VT, PEEP+5 , FIO2 30% , PT IS SEDATED, SUCTIONED LIGHT PALE YELL TINGE SECRETIONS, CHANGED HME, ALL VENT ALARMS CHECKED AND RESET, NO VENT CHANGES MADE , VENT PLUGGED INTO RED WALL OUTLET. CONT WITH CURRENT RT ORDERS. CONT TO MONITOR AND REPORT ANY CHANGES. Addendum: 12/25/20 at 1629 by RILEY SALAS RT PATIENT ON CONT [place] VENT WITH 7.5 ETT @ 25cm LL IN PLACE AND SECURED WITH ANCHOR FAST, TOLERATING CURRENT VENT SETTINGS, A/C 30, 525VT, PEEP+10 , FIO2 80% , SM SUCTIONED LIGHT YELLOW TINGED SECRETIONS, CHANGED HME, ALL VENT ALARMS CHECKED AND RESET, NO VENT CHANGES MADE , VENT PLUGGED INTO RED WALL OUTLET. CONT WITH CURRENT RT ORDERS. CONT TO MONITOR AND REPORT ANY CHANGES.
[2020-12-25] MEDS: MICAFUNGIN SODIUM 100 MG in IV NORMAL SALINE 100 ML IV SCH (20:50)
--- NOTE | 2020-12-25 21:04 | NUR ---
Pt's sister Hansa mrose4d / update.
[2020-12-26] VITALS (29 sets, daily range): BP systolic 61–115; BP diastolic 33–66
--- NOTE | 2020-12-26 00:01 | NUR ---
Con't H2O via NG tube Q4H as ordered.
[2020-12-26] MEDS: IV D5W 1000ML 1,000 ML IV PRN (01:18)
[2020-12-26] MEDS: BLOOD SUGAR DIAGNOSTIC 1 EACH STRIP VI SCH ×5 (02:12→20:00)
[2020-12-26] MEDS: INSULIN REGULAR, HUMAN 300 UNITS/3 ML VIAL SQ SCH ×5 (02:13→20:00)
[2020-12-26] MEDS: DEXAMETHASONE SOD PHOSPHATE 10 MG INJ IV SCH ×2 (05:26→13:24)
[2020-12-26 05:41] LABS: HEMATOCRIT 37.5 % (36.7-47.1); MEAN CORPUSCULAR HEMOGLOBIN 31.3 uug (23.8-33.4); MEAN CORPUSCULAR VOLUME 97.7 fL (73.0-96.2); PLATELET COUNT (AUTO) 66 K/uL (152-348)
[2020-12-26 06:07] LABS: POTASSIUM 5.2 mmol/L (3.5-5.1)
[2020-12-26 06:08] LABS: BILIRUBIN,TOTAL 1.3 mg/dL (0.2-1.0); CREATININE 0.8 mg/dL (0.6-1.3); PHOSPHOROUS 2.7 mg/dL (2.5-4.9)
[2020-12-26 06:09] LABS: MAGNESIUM 2.3 mg/dL (1.8-2.4); TOTAL PROTEIN, SERUM 4.2 g/dL (6.4-8.2)
[2020-12-26] MEDS: MIDAZOLAM HCL 50 MG in IV NORMAL SALINE 40 ML IV PRN (07:53)
[2020-12-26 08:03] LABS: ABG BASE EXCESS 8.7 mmol/L; ABG PCO2 70.7 mmHg (35.0-45.0); ABG PH 7.337 (7.350-7.450); ABG PO2 54.1 mmHg (75.0-100.0); ABG SITE RIGHT RADIAL; ABG TOTAL HEMOGLOBIN 12.8 G/dL (13.5-18.0); MetHb 0.2 % (0.0-1.5); O2Hb 86.4 % (94.0-97.0); VENT MODE VENT - A/C; VT, ABG 525 mL
[2020-12-26] MEDS ORDERED: LACTULOSE 20 G/30 ML LIQUID UDC PO ONE (08:15)
--- NOTE | 2020-12-26 08:16 | NUR ---
PT RECEIVED ON VENT WITH.5 ETT SECURED BY ANCHOR FAST AT 25 cm LIP LINE. VENT SETTINGS AC30/525/70%/+10 PEEP. PT HAS MINIMAL WHITE SECRETIONS . PER ABG RESULT, VENT SETTING CHANGES MADE, FIO2 INCREASED TO 80% AND PEEP TO 12. WILL CONTINUE TO MONITOR
[2020-12-26] MEDS: DESCOVY 200-25MG TABLET GT SCH (08:18)
[2020-12-26] MEDS: PREZCOBIX GT SCH (08:18)
[2020-12-26] MEDS: ASCORBIC ACID 500 MG TABLET PO SCH (08:19)
[2020-12-26] MEDS: CHOLECALCIFEROL 1,000 UNIT TABLET PO SCH (08:19)
[2020-12-26] MEDS: PANTOPRAZOLE SODIUM 40 MG VIAL IV SCH (08:19)
[2020-12-26] MEDS: AMIODARONE HCL 200 MG TABLET PO SCH (08:19)
[2020-12-26] MEDS: FINASTERIDE 5 MG TABLET PO SCH (08:20)
[2020-12-26] MEDS: ZINC SULFATE 220 MG CAPSULE PO SCH ×3 (08:20→16:42)
[2020-12-26] MEDS ORDERED: SODIUM POLYSTYRENE SULFONATE 15 G/60 ML LIQUID UDC GT ONE (08:30)
[2020-12-26] MEDS ORDERED: INSULIN GLARGINE,HUM 300 UNITS/3 ML CARTRIDGE SQ SCH (09:00)
[2020-12-26] MEDS: FLUTICASONE/VILANTEROL 1 EACH BLST.W.DEV INH SCH (09:00)
[2020-12-26] MEDS: [UNRECOGNIZED DRUG - OTHER] GT SCH (09:02)
[2020-12-26] MEDS: PROTEIN SUPPLEMENT (PROSTAT) 30 ML LIQUID GT SCH ×3 (09:04→16:42)
[2020-12-26] MEDS: NUTRISOURCE FIBER 4 GM PACKET PO SCH ×3 (09:05→16:41)
--- NOTE | 2020-12-26 09:39 | NUR ---
0757am: ROSS De La Torre@bedside, aware of latest labs and critical levels 0901am: Dr [email or web address] 0930am: Maintained on FiO2=80% and PEEP=12 per MD orders
[2020-12-26 09:42] LABS: BAND % (MANUAL) 1 % (0-10); LYMPHOCYTES % (MANUAL) 2 % (20-40); NEUTROPHILS % (MANUAL) 97 % (42-75)
[2020-12-26] MEDS ORDERED: IPRATROPIUM/ALBUTEROL SULFATE 14.7 GM INHALER INH SCH (10:00)
[2020-12-26] MEDS ORDERED: ALBUTEROL SULFATE 8 GM HFA.AER.AD IH SCH ×2 (10:15→10:23)
[2020-12-26] MEDS ORDERED: IPRATROPIUM BROMIDE 12.9 GM INHALER INH SCH ×2 (10:15→10:23)
--- NOTE | 2020-12-26 17:15 | NUR ---
1710 : FIO2 INCREASED TO 100% DUE TO PT SPO2 FALLING BELOW 88%. PT SPO2 IS NOW WITHIN NORMAL LIMITS ON 100% FIO2.
[2020-12-26] MEDS: PHENYLEPHRINE IV 50 MG in IV NORMAL SALINE 245 ML IV PRN (18:10)
--- NOTE | 2020-12-26 18:41 | NUR ---
Dr. Mabry notified that patient is on maximum oxygen and saturation continues to be 80% on 100% oxygen. ABG ordered and cxr ordered.
--- NOTE | 2020-12-26 18:59 | NUR ---
Notified Dr. De La Torre that patient is rapidly declining and needs to talk to the family. Sister Hansa notified, and called Cleo Aldana to discuss patients status and decline. Cleo wishes to make patient full code.
[2020-12-26 19:01] LABS: ABG BASE EXCESS 9.5 mmol/L; ABG HCO3 38.9 mmol/L; ABG PCO2 81.9 mmHg (35.0-45.0); ABG PH 7.295 (7.350-7.450); ABG SITE LEFT RADIAL; ABG TOTAL HEMOGLOBIN 12.5 G/dL (13.5-18.0); COHb 1.6 % (0.5-1.5); MetHb 0.3 % (0.0-1.5); O2Hb 79.4 % (94.0-97.0); VENT MODE VENT - A/C; VT, ABG 525 mL
--- NOTE | 2020-12-26 19:03 | NUR ---
G sent to Dr. Mabry. PEEP increased to 15.
--- NOTE | 2020-12-26 19:10 | NUR ---
184 ABG done, portable chest x-ray in progress, Neosynephrine drip titrated by JACINTO Barcenas to MAP>60 1900 SBP levels are still low, Neosynephrine drip maxed at 3mcg/k/min. Levophed drip is ready to give. SBAR in progress to next shift JACINTO Gupta 1907 CODE Blue was called (please see code blue records).
--- NOTE | 2020-12-26 19:25 | NUR ---
Spoke with BLESSING JOLLY, and notified her of patients status. She stated to stop the code blue. Second nurse Brent Donaldson witnessed phone call. Jamie De La Torre notified and received orders to make DNR and stop the code.
[2020-12-26] MEDS ORDERED: EPINEPHRINE 1:10,000 1 MG/10 ML DISP.SYRIN IV ONE (19:27)
[2020-12-26] MEDS ORDERED: ATROPINE SULFATE 1 MG/10 ML DISP.SYRIN IV ONE (19:27)
--- NOTE | 2020-12-26 19:39 | NUR ---
Patient coded immediately after receiving hand off report, code blue initiated 1907. CPR immediately initiated, 1 Atropine and [address] Rosen responded from the ER, stated patient has a spontaneous pneumothorax and initiated needle decompression and then chest tube insertion. ACLS algorithm conducted throughout code, DPOA BLESSING contacted, informed of the condition of the patient, and made the decision to withdraw full code status requesting Code Blue be stopped @1924. Dr. Rosen called time of @1927 after assessment of vital signs.
--- NOTE | 2020-12-26 20:30 | NUR ---
Post mortem care done.
--- NOTE | 2020-12-26 20:40 | NUR ---
Called [facility] and spoke with Hannahwilliam contreras's case #[id number].
--- NOTE | 2020-12-26 20:50 | NUR ---
Contacted pulmonology's exchange regarding patient's expiration.
--- NOTE | 2020-12-26 21:00 | NUR ---
Cleo Isaac came in, and took patient's belongings.
--- NOTE | 2020-12-26 21:05 | NUR ---
Discussed mortuary arrangement needs and record signed by Cleo Isaac, instructed to call nursing office if arrangement has been made.
--- NOTE | 2020-12-26 21:10 | NUR ---
Contacted Dr. Valle, GI & Nephro's exchange regarding patient's expiration.
--- NOTE | 2020-12-26 21:15 | NUR ---
Contacted Nursing Flue Cleaner Mee and security Toni for [place] [facility] [place]
--- NOTE | 2020-12-26 21:42 | NUR ---
patient's body to the morgue.
== END 2020-12-26 19:28 | DRG 720 ==
LOC: ER 01:51 → TELE3 07:52 → CCU 12-14 10:43
PROVIDERS: ADMIT Nurse Practitioner Acute Care; ATTEND Hospitalist
PROC: XW033E5 Introduction of Remdesivir Anti-infective into Peripheral Vein, Percutaneous Approach, New Technology Group 5 (ICD-10-PCS; principal; 2020-11-27)
PROC: XW033H5 Introduction of Tocilizumab into Peripheral Vein, Percutaneous Approach, New Technology Group 5 (ICD-10-PCS; 2020-12-02)
PROC: B546ZZA Ultrasonography of Right Subclavian Vein, Guidance (ICD-10-PCS; 2020-12-10)
PROC: 05H533Z Insertion of Infusion Device into Right Subclavian Vein, Percutaneous Approach (ICD-10-PCS; 2020-12-10)
PROC: 0BH17EZ Insertion of Endotracheal Airway into Trachea, Via Natural or Artificial Opening (ICD-10-PCS; 2020-12-15)
PROC: 5A1955Z Respiratory Ventilation, Greater than 96 Consecutive Hours (ICD-10-PCS; 2020-12-15)
PROC: 30233M1 Transfusion of Nonautologous Plasma Cryoprecipitate into Peripheral Vein, Percutaneous Approach (ICD-10-PCS; 2020-12-21)
PROC: 02HV33Z Insertion of Infusion Device into Superior Vena Cava, Percutaneous Approach (ICD-10-PCS; 2020-12-21)
PROC: B548ZZA Ultrasonography of Superior Vena Cava, Guidance (ICD-10-PCS; 2020-12-21)
PROC: 0W3P8ZZ Control Bleeding in Gastrointestinal Tract, Via Natural or Artificial Opening Endoscopic (ICD-10-PCS; 2020-12-23)
PROC: 5A12012 Performance of Cardiac Output, Single, Manual (ICD-10-PCS; 2020-12-26)
PROC: 0W9B30Z Drainage of Left Pleural Cavity with Drainage Device, Percutaneous Approach (ICD-10-PCS; 2020-12-26)
DX: A41.89 Other specified sepsis (principal); I26.99 Other pulmonary embolism without acute cor pulmonale; N17.0 Acute kidney failure with tubular necrosis; J12.82 Pneumonia due to coronavirus disease 2019; E43 Unspecified severe protein-calorie malnutrition; J96.02 Acute respiratory failure with hypercapnia; J96.01 Acute respiratory failure with hypoxia; J15.9 Unspecified bacterial pneumonia; K25.4 Chronic or unspecified gastric ulcer with hemorrhage; D69.6 Thrombocytopenia, unspecified; E88.09 Other disorders of plasma-protein metabolism, not elsewhere classified; I50.31 Acute diastolic (congestive) heart failure; U07.1 COVID-19; D75.839 Thrombocytosis, unspecified; E86.0 Dehydration; E86.1 Hypovolemia; I48.0 Paroxysmal atrial fibrillation; J45.909 Unspecified asthma, uncomplicated; E87.1 Hypo-osmolality and hyponatremia; Z66 Do not resuscitate; Z68.21 Body mass index [BMI] 21.0-21.9, adult; Z79.899 Other long term (current) drug therapy; D75.1 Secondary polycythemia; N40.0 Benign prostatic hyperplasia without lower urinary tract symptoms; E11.65 Type 2 diabetes mellitus with hyperglycemia; E44.0 Moderate protein-calorie malnutrition; R65.21 Severe sepsis with septic shock; J93.83 Other pneumothorax; K29.70 Gastritis, unspecified, without bleeding; E78.1 Pure hyperglyceridemia; I45.10 Unspecified right bundle-branch block; E87.5 Hyperkalemia
CPT/HCPCS: 36415; 36569; 36600; 70030-TC; 71045; 71046; 82668; 83605; 83615; 83735; 84100; 84443; 84478; 85025; 85610; 85651; 85730; 86140; 86361; 86480; 86850; 86900; 86901; 87040; 87070; 87086; 87328; 88313-TC; 88342; 93005; 93307; 94002; 94003; 94640; 94660; 94664; 94760; A4217; A4663; A6209; C9113; G0378; J0171; J0282; J0461; J0696; J1100; J1200; J1644; J1650; J1815; J1940; J2060; J2185; J2248; J2250; J2270; J2370; J2920; J3010; J3262; J3370; J3480; J3490; J3535; J7030; J7040; J7050; J7060; J7070; J8540; P9012; Q0144; U0003